=== PATIENT | male | born 1965 | race African-American/Black ===

== ENCOUNTER 2017-05-24 16:45 | Inpatient (IN) | payer OTHER ==
[2017-05-24 19:53] VITALS: BMI 25.8
--- NOTE | 2017-05-24 21:43 | HP ---
CIWA Score - CIWA Score Nausea/Vomitin-Mild Nausea/No Vomiting Muscle Tremors: 4-Moderate,w/Arms Extend Anxiety: 4-Mod. Anxious/Guarded Agitation: 4-Moderately Restless Paroxysmal Sweats: 1-Minimal Palms Moist Orientation: 1-Uncertain about Date Tacttile Disturbances: 0-None Auditory Disturbances: 0-None Visual Disturbances: 0-None Headache: 0-None Present CIWA-Ar Total Score: 15 Admission ROS BHS - HPI Chief Complaint: WITHDRAWAL SX Allergies/Adverse Reactions: Allergies Allergy/AdvReac Type Severity Reaction Status Date / Time No Known Allergies Allergy Verified 03/02/13 23:09 History of Present Illness: 52 YEARS OLD MALE WITH LONG HISTORY OF ALCOHOL NICOTINE DEPENDENCE HAS HIV HYPERLIPIDEMIA AND BIPOLAR II IS ADMITTED TO DETOX Exam Limitations: No Limitations - Ebola screening Have you traveled outside of the country in the last 21 days: No Have you had contact with anyone from an Ebola affected area: No Have you been sick,other than usual withdrawal symptoms: No Do you have a fever: No - Review of Systems Constitutional: Loss of Appetite, Changes in sleep, Unintentional Wgt. Loss, Unexplained wgt Loss EENT: reports: No Symptoms Reported Respiratory: reports: No Symptoms reported Cardiac: reports: No Symptoms Reported GI: reports: Nausea, Poor Appetite, Poor Fluid Intake, Abdominal cramping : reports: No Symptoms Reported Musculoskeletal: reports: No Symptoms Reported Integumentary: reports: No Symptoms Reported Neuro: reports: Tremors Endocrine: reports: No Symptoms Reported Hematology: reports: No Symptoms Reported Psychiatric: reports: Judgement Intact, Anxious, Depressed Other Systems: Reviewed and Negative Patient History - Patient Medical History Hx Anemia: No Hx Asthma: No Hx Chronic Obstructive Pulmonary Disease (COPD): No Hx Cancer: No Hx Cardiac Disorders: No Hx Congestive Heart Failure: No Hx Hypertension: No Hx Hypercholesterolemia: Yes Hx Pacemaker: No HX Cerebrovascular Accident: No Hx Seizures: No Hx Dementia: No Hx Diabetes: No Hx Gastrointestinal Disorders: No Hx Liver Disease: Yes (Hep b or c) Hx Genitourinary Disorders: No Hx Sexually Transmitted Disorders: No Hx Renal Disease (ESRD): No Hx Thyroid Disease: No Hx Human Immunodeficiency Virus (HIV): Yes (2006) Hx Hepatitis C: No Hx Depression: Yes (AND ANXIETY) Hx Suicide Attempt: No Hx Bipolar Disorder: No Hx Schizophrenia: No - Patient Surgical History Past Surgical History: Yes Hx Neurologic Surgery: No Hx Cataract Extraction: No Hx Cardiac Surgery: No Hx Lung Surgery: No Hx Breast Surgery: No Hx Breast Biopsy: No Hx Abdominal Surgery: No Hx Appendectomy: No Hx Cholecystectomy: No Hx Genitourinary Surgery: No Hx Orthopedic Surgery: Yes (rt index finger amputates while cutting meat) Other Surgical History: Inguinal hernia repair, ~2000 Anesthesia Reaction: No - PPD History Previous Implant?: Yes Documented Results: Positive w/proof Implanted On Prior [facility] Admission?: No PPD to be Administered?: No - Smoking Cessation Smoking history: Current every day smoker Have you smoked in the past 12 months: Yes Aproximately how many cigarettes per day: 20 Cigars Per Day: 0 Hx Chewing Tobacco Use: No Initiated information on smoking cessation: Yes 'Breaking Loose' booklet given: 05/24/17 - Substance & Tx. History Hx Alcohol Use: Yes Hx Substance Use: Yes Substance Use Type: Alcohol, Cocaine Hx Substance Use Treatment: Yes (2012) - Substances Abused Alcohol Route: Oral Frequency: Daily Amount used: 1/2 VOLKA+3 QUART BEER Age of first use: 12 Date of Last Use: 05/24/17 Family Disease History - Family Disease History Family Disease History: Diabetes: Mother (d. breast cancer, age 78), Heart Disease: Father (colon cancer - dx 2004, approx age 72; alive age 83), Mother, CA: Father, Mother, Other: Sister (sister- lupus) Admission Physical Exam BHS - Vital Signs Vital Signs: Vital Signs - 24 hr 05/24/17 19:51 Temperature 98.5 F Pulse Rate 120 H Respiratory 18 Rate Blood Pressure 113/78 - Physical General Appearance: Yes: Appropriately Dressed, Mild Distress, Thin, Tremorous, Irritable, Sweating, Anxious HEENTM: Yes: Hearing grossly Normal, Normal ENT Inspection, Normocephalic, Normal Voice Respiratory: Yes: Chest Non-Tender, Lungs Clear, Normal Breath Sounds, No Respiratory Distress, No Accessory Muscle Use Neck: Yes: Supple, Trachea in good position Breast: Yes: Breasts Symetrical Cardiology: Yes: Regular Rhythm, S1, S2, Tachycardia Abdominal: Yes: Non Tender, Soft, Increased Bowel Sounds Genitourinary: Yes: Within Normal Limits Back: Yes: Normal Inspection Musculoskeletal: Yes: full range of Motion, Gait Steady Extremities: Yes: Normal Inspection, Normal Range of Motion, Non-Tender, Tremors Neurological: Yes: Alert, Motor Strength 5/5, Normal Response, Depressed Affect Integumentary: Yes: Warm Lymphatic: Yes: Within Normal Limits - Diagnostic (1) H/O syphilis Current Visit: Yes Status: Resolved Comment: h/o treatment at [facility] - received documentation from Rebecca Esquivel, [facility] - bicillin 2.4 million units administered 1) 12/24/14, 2) 12/31, 3) 01/28/2015; pt reports he was treated another time at a clinic in [place]; declines re-treatment at this time and will notify when was treated previously discussed importance of ensuring complete syphilis treatment, risks a/w syphilis (2) Tobacco dependence Current Visit: Yes Status: Acute (3) Alcohol dependence with uncomplicated withdrawal Current Visit: Yes Status: Acute (4) Weight loss Current Visit: Yes Status: Acute (5) Bipolar II disorder Current Visit: Yes Status: Suspected Cleared for Admission BHS - Detox or Rehab S Level of Care: Medically Managed Detox Regimen/Protocol: Librium S Breath Alcohol Content Breath Alcohol Content: 0 Urine Drug Screen - Results Drug Screen Negative: No Urine Drug Screen Results: FELICITAS-Cocaine
[2017-05-24] MEDS ORDERED: P-EPHED 60MG/TRIPROLIDI 2.5MG TABLET PO PRN (21:52)
[2017-05-24] MEDS ORDERED: hydrOXYzine PAMOATE 50 MG CAPSULE (FP) PO PRN (21:52)
[2017-05-24] MEDS ORDERED: LOPERAMIDE HCL 2 MG CAPSULE PO PRN (21:52)
[2017-05-24] MEDS ORDERED: diphenhydrAMINE HCL 50 MG CAPSULE PO PRN (21:52)
[2017-05-24] MEDS ORDERED: NICOTINE POLACRILEX 4 MG GUM BUC PRN (21:52)
[2017-05-24] MEDS ORDERED: ACETAMINOPHEN 325 MG TABLET (FP) PO PRN (21:52)
[2017-05-24] MEDS ORDERED: MAGNESIUM CITRATE 300 ML BOTTLE PO PRN (21:52)
[2017-05-24] MEDS ORDERED: MENTHOL/PHENOL 1 EACH UD MM PRN (21:52)
[2017-05-24] MEDS ORDERED: MAGNESIUM HYDROX 2400MG/30ML ORAL SUSPENSION 30 ML CUP PO PRN (21:52)
[2017-05-24] MEDS ORDERED: IBUPROFEN 400 MG TABLET (FP) PO PRN (21:52)
[2017-05-24] MEDS ORDERED: MAG HYDROX/AL HYDROX/SIMETH 30 ML UNIT-DOSE CUP PO PRN (21:52)
[2017-05-24] MEDS ORDERED: guaiFENesin/D-METHORPHAN HB 10 ML UNIT-DOSE CUPS PO PRN (21:52)
[2017-05-24] MEDS ORDERED: chlordiazePOXIDE HCL 25 MG CAPSULE PO PRN (21:52)
[2017-05-24] MEDS: chlordiazePOXIDE HCL 25 MG CAPSULE PO SCH (23:59)
[2017-05-25] MEDS: THIAMINE HCL 100 MG TABLET (FP) PO SCH ×2 (00:01→22:38)
[2017-05-25] MEDS: MINERAL OIL/PETROLAT/WATER TOPICAL CREAM 113 GM JAR TP SCH ×2 (00:14→23:31)
[2017-05-25 01:35] LABS: URINE APPEARANCE SLCLOUDY; URINE BILIRUBIN NEGATIVE (NEGATIVE); URINE BLOOD NEGATIVE (NEGATIVE); URINE GLUCOSE (UA) NEGATIVE (NEGATIVE); URINE KETONE NEGATIVE (NEGATIVE); URINE LEUK ESTERASE NEGATIVE (NEGATIVE); URINE NITRITE NEGATIVE (NEGATIVE); URINE PROTEIN NEGATIVE (NEGATIVE); URINE UROBILINOGEN 4.0 E.U/dl mg/dL (0.2-1.0)
[2017-05-25 01:36] LABS: URINE COLOR YELLOW
[2017-05-25] MEDS: chlordiazePOXIDE HCL 25 MG CAPSULE PO SCH ×4 (07:00→22:38)
--- NOTE | 2017-05-25 08:35 | CONSULT ---
[facility] Psychiatric Consult - Data Date of interview: 05/25/17 Admission source: [facility] Identifying data: This is 52 years old male with psychiatric hospitalization history intoxicated with: Alcohol, Cocaine and Nicotine Substance Abuse History: - Smoking Cessation. Smoking history: Current every day smoker. Have you smoked in the past 12 months: Yes. Aproximately how many cigarettes per day: 20. Cigars Per Day: 0. Hx Chewing Tobacco Use: No. Initiated information on smoking cessation: Yes. 'Breaking Loose' booklet given : 05/24/17. - Substance & Tx. History. Hx Alcohol Use: Yes. Hx Substance Use : Yes. Substance Use Type: Alcohol, Cocaine. Hx Substance Use Treatment: Yes ( 2012). - Substances Abused. Alcohol. Route: Oral. Frequency: Daily. Amount used: 1/2 VOLKA+3 QUART BEER. Age of first use: 12. Date of Last Use: 05/24/17 Medical History: Weight loss history, Head Lipoma history, Aids, hiv, hEPb+, HTN Psychiatric History: Patient reports history of Bipolr II Disroder, reports unclear psychiatric admission on about 10 years ago, reports no medications taking prior to admission Physical/Sexual Abuse/Trauma History: Denies Additional Comment: Observation. Detox Unit Care Protocol Mental Status Exam - Mental Status Exam Alert and Oriented to: Person Cognitive Function: Fair Patient Appearance: Unkempt Mood: Sad Affect: Flat Patient Behavior: Sedated Speech Pattern: Delayed Voice Loudness: Mildly Soft/Quiet Thought Process: Circumstantial Thought Disorder: Being Controlled Hallucinations: Denies Suicidal Ideation: Denies Homicidal Ideation: Denies Insight/Judgement: Fair Sleep: Difficulty falling asleep Appetite: Weight loss Muscle strength/Tone: Normal Gait/Station: Normal Additional Comments: Observation. Detox Unit Care Protocol Psychiatric Findings - Problem List ([place] 1, 2,3) (1) Alcohol dependence with uncomplicated withdrawal Current Visit: Yes Status: Acute (2) Tobacco dependence Current Visit: Yes Status: Acute (3) Bipolar II disorder Current Visit: Yes Status: Suspected (4) H/O bipolar disorder Current Visit: No Status: Acute Comment: off meds x 3 mo; denies suicidal plan or intent, refer to psychiatrist for eval (5) H/O cocaine abuse Current Visit: No Status: Acute (6) Drug-induced mood disorder Current Visit: Yes Status: Suspected - Initial Treatment Plan Initial Treatment Plan: Observation. Detox Unit Care Protocol
[2017-05-25 09:49] LABS: MCH 30.7 pg (25.7-33.7); MCHC 33.7 g/dl (32.0-35.9); MEAN CELL VOLUME 91.1 fl (80-96); MEAN PLT VOLUME 7.9 fl (7.5-11.1); PLATELET COUNT 199 K/MM3 (134-434); RDW 13.9 % (11.9-15.9); WHITE BLOOD COUNT 5.6 K/mm3 (4.0-10.0)
[2017-05-25 10:14] LABS: ALBUMIN 3.2 g/dl (3.4-5.0); ALK PHOS 104 U/L (45-117); ANION GAP 3 (8-16); BILIRUBIN,TOTAL 0.3 mg/dL (0.2-1.0); CALCIUM 8.6 mg/dL (8.5-10.1); CO2 32 mmol/L (21-32); CREATININE 0.9 mg/dL (0.7-1.3); GLUCOSE,RANDOM 100 mg/dL (74-106); SGOT/AST 28 U/L (15-37); SGPT/ALT 42 U/L (12-78)
--- NOTE | 2017-05-25 10:47 | PN ---
S CIWA - CIWA Score Nausea/Vomitin-No Nausea/No Vomiting Muscle Tremors: 4-Moderate,w/Arms Extend Anxiety: 3 Agitation: 4-Moderately Restless Paroxysmal Sweats: 3 Orientation: 0-Oriented Tacttile Disturbances: 0-None Auditory Disturbances: 0-None Visual Disturbances: 0-None Headache: 0-None Present CIWA-Ar Total Score: 14 BHS Progress Note (SOAP) Subjective: irritable agitation anxiety sweats shakes interrupted sleep Objective: 05/25/17 10:41 Vital Signs Temperature 97.9 F 05/25/17 10:01 Pulse Rate 80 05/25/17 10:01 Respiratory Rate 18 05/25/17 10:01 Blood Pressure 104/55 05/25/17 10:01 O2 Sat by Pulse Oximetry (%) Laboratory Tests 05/24/17 05/25/17 05/25/17 23:56 07:50 07:50 WBC 5.6 RBC 4.46 Hgb 13.7 Hct 40.6 MCV 91.1 MCH 30.7 MCHC 33.7 RDW 13.9 Plt Count 199 MPV 7.9 Sodium 139 Potassium 3.6 Chloride 104 Carbon Dioxide 32 Anion Gap 3 L BUN 12 Creatinine 0.9 Creat Clearance w eGFR > 60 Random Glucose 100 D Calcium 8.6 Total Bilirubin 0.3 D AST 28 D ALT 42 Alkaline Phosphatase 104 D Total Protein 7.0 Albumin 3.2 L Urine Color Yellow Urine Appearance Slcloudy Urine pH 5.0 D Ur Specific [place] 1.025 Urine Protein Negative Urine Glucose (UA) Negative Urine Ketones Negative Urine Blood Negative Urine Nitrite Negative Urine Bilirubin Negative Urine Urobilinogen 4.0 e.u/dl awake/alert lying in bed no acute distress Assessment: 05/25/17 10:47 withdrawal sx Plan: continue detox increase fluids
[2017-05-25] MEDS: NICOTINE 21 MG/24 HOURS TOPICAL PATCH TD SCH (11:34)
[2017-05-25] MEDS: PRENATAL VITAMINS W/ FOLIC ACID TABLET (FP) PO SCH (11:34)
--- NOTE | 2017-05-25 13:25 | EKG ---
Test Reason : Blood Pressure : / mmHG Vent. Rate : 085 BPM Atrial Rate : 085 BPM P-R Int : 166 ms QRS Dur : 096 ms QT Int : 372 ms P-R-T Axes : 055 081 062 degrees QTc Int : 442 ms POOR DATA QUALITY, INTERPRETATION MAY BE ADVERSELY AFFECTED NORMAL SINUS RHYTHM ANTERIOR INFARCT (CITED ON OR BEFORE 22-FEB-2017) ABNORMAL ECG WHEN COMPARED WITH ECG OF 22-FEB-2017 14:16, NO SIGNIFICANT CHANGE WAS FOUND Confirmed by VERÓNICA VEGA MD ([id number]) on 05/25/2017 1:25:04 PM Referred By: Natalio Young Confirmed By:VERÓNICA VEGA MD
[2017-05-25] MEDS: [UNRECOGNIZED DRUG - OTHER] PO SCH ×2 (22:38→22:57)
[2017-05-26] MEDS: chlordiazePOXIDE HCL 25 MG CAPSULE PO SCH ×3 (07:24→17:25)
[2017-05-26] MEDS: PRENATAL VITAMINS W/ FOLIC ACID TABLET (FP) PO SCH (10:13)
[2017-05-26] MEDS: NICOTINE 21 MG/24 HOURS TOPICAL PATCH TD SCH (10:15)
--- NOTE | 2017-05-26 10:45 | PN ---
[facility] CIWA - CIWA Score Nausea/Vomitin-No Nausea/No Vomiting Muscle Tremors: 3 Anxiety: 3 Agitation: 3 Paroxysmal Sweats: 3 Orientation: 0-Oriented Tacttile Disturbances: 0-None Auditory Disturbances: 0-None Visual Disturbances: 0-None Headache: 0-None Present CIWA-Ar Total Score: 12 S Progress Note (SOAP) Subjective: irritable agitation interrupted sleep body aches Objective: 05/26/17 10:49 Vital Signs Temperature 97.5 F L 05/26/17 09:38 Pulse Rate 113 H 05/26/17 09:38 Respiratory Rate 18 05/26/17 09:38 Blood Pressure 128/72 05/26/17 09:38 O2 Sat by Pulse Oximetry (%) Laboratory Tests 05/24/17 05/25/17 05/25/17 23:56 07:50 07:50 WBC 5.6 RBC 4.46 Hgb 13.7 Hct 40.6 MCV 91.1 MCH 30.7 MCHC 33.7 RDW 13.9 Plt Count 199 MPV 7.9 Sodium 139 Potassium 3.6 Chloride 104 Carbon Dioxide 32 Anion Gap 3 L BUN 12 Creatinine 0.9 Creat Clearance w eGFR > 60 Random Glucose 100 D Calcium 8.6 Total Bilirubin 0.3 D AST 28 D ALT 42 Alkaline Phosphatase 104 D Total Protein 7.0 Albumin 3.2 L Urine Color Yellow Urine Appearance Slcloudy Urine pH 5.0 D Ur Specific [place] 1.025 Urine Protein Negative Urine Glucose (UA) Negative Urine Ketones Negative Urine Blood Negative Urine Nitrite Negative Urine Bilirubin Negative Urine Urobilinogen 4.0 e.u/dl RPR Titer T.pallidum Ab (MHA) 05/25/17 07:50 WBC RBC Hgb Hct MCV MCH MCHC RDW Plt Count MPV Sodium Potassium Chloride Carbon Dioxide Anion Gap BUN Creatinine Creat Clearance w eGFR Random Glucose Calcium Total Bilirubin AST ALT Alkaline Phosphatase Total Protein Albumin Urine Color Urine Appearance Urine pH Ur Specific [place] Urine Protein Urine Glucose (UA) Urine Ketones Urine Blood Urine Nitrite Urine Bilirubin Urine Urobilinogen RPR Titer Reactive 1:4 H T.pallidum Ab (MHA) Previously reactive pt states he received tx for syphillis in the past and is aware of 1:4 titer result. AAOx3 lying in bed no acute distress Assessment: 05/26/17 10:50 mild withdrawal sx Plan: continue detox increase fluids
[2017-05-26 17:24] VITALS: BP 116/63; PULSE 64; TEMP 98.4
--- NOTE | 2017-05-26 18:16 | DS ---
[facility] Detox Discharge Summary Admission Date: 05/24/17 Discharge Date: 05/26/17 - History Present History: Alcohol Dependence, Cocaine Dependence Additional Comments: PATIENT HAS PERSONAL ISSUE TO ATTEND TO AND DOES NOT WISH TO STAY TO COMPLETE DETOX REGIMEN. PATIENT ADVISED TO GO IMMEDIATELY TO NEAREST ER SHOULD ANY INTOLERABLE DETOX SYMPTOMS DEVELOP AT ANY TIME. PATIENT LEFT DETOX UNIT IN STABLE MEDICAL CONDITION. Pertinent Past History: Hypercholesterolemia, HIV, History of Syphilis, Bipolar disorder, Depression / anxiety. - Physical Exam Results Vital Signs: Vital Signs Temperature 98.4 F 05/26/17 17:23 Pulse Rate 64 05/26/17 17:23 Respiratory Rate 18 05/26/17 17:23 Blood Pressure 116/63 05/26/17 17:23 O2 Sat by Pulse Oximetry (%) Pertinent Admission Physical Exam Findings: WITJHDRAWAL SYMPTOMS. Laboratory Tests 05/24/17 05/25/17 05/25/17 23:56 07:50 07:50 WBC 5.6 RBC 4.46 Hgb 13.7 Hct 40.6 MCV 91.1 MCH 30.7 MCHC 33.7 RDW 13.9 Plt Count 199 MPV 7.9 Sodium 139 Potassium 3.6 Chloride 104 Carbon Dioxide 32 Anion Gap 3 L BUN 12 Creatinine 0.9 Creat Clearance w eGFR > 60 Random Glucose 100 D Calcium 8.6 Total Bilirubin 0.3 D AST 28 D ALT 42 Alkaline Phosphatase 104 D Total Protein 7.0 Albumin 3.2 L Urine Color Yellow Urine Appearance Slcloudy Urine pH 5.0 D Ur Specific [place] 1.025 Urine Protein Negative Urine Glucose (UA) Negative Urine Ketones Negative Urine Blood Negative Urine Nitrite Negative Urine Bilirubin Negative Urine Urobilinogen 4.0 e.u/dl RPR Titer T.pallidum Ab (MHA) 05/25/17 07:50 WBC RBC Hgb Hct MCV MCH MCHC RDW Plt Count MPV Sodium Potassium Chloride Carbon Dioxide Anion Gap BUN Creatinine Creat Clearance w eGFR Random Glucose Calcium Total Bilirubin AST ALT Alkaline Phosphatase Total Protein Albumin Urine Color Urine Appearance Urine pH Ur Specific [place] Urine Protein Urine Glucose (UA) Urine Ketones Urine Blood Urine Nitrite Urine Bilirubin Urine Urobilinogen RPR Titer Reactive 1:4 H T.pallidum Ab (MHA) Previously reactive LABS NOTED. - Treatment Hospital Course: Detoxed Safely - Medication Discharge Medications: Ambulatory Orders NK [No Known Home Medication] 05/24/17 - Diagnosis (1) Tobacco dependence Current Visit: Yes Status: Chronic (2) Alcohol dependence with uncomplicated withdrawal Current Visit: Yes Status: Acute (3) Bipolar II disorder Current Visit: Yes Status: Suspected (4) Drug-induced mood disorder Current Visit: Yes Status: Suspected (5) H/O syphilis Current Visit: Yes Status: Resolved (6) H/O bipolar disorder Current Visit: No Status: Acute (7) Weight loss Current Visit: Yes Status: Acute - AMA Did Patient Leave Against Medical Advice: Yes (PATIENT DID NOT WISH TO STAY TO COMPLETE DETOX REGIMEN.)
[2017-05-26] MEDS ORDERED: chlordiazePOXIDE 5 MG CAPSULE PO SCH (23:00)
[2017-05-27] MEDS ORDERED: chlordiazePOXIDE HCL 10 MG CAPSULE PO SCH (23:00)
== END 2017-05-26 17:23 | disposition left against medical advice (07) | DRG 770 ==
LOC: YASAS 16:45 → Y6N 21:33
PROVIDERS: ADMIT Internal Medicine Addiction Medicine; ATTEND Internal Medicine Addiction Medicine
PROC: HZ2ZZZZ Detoxification Services for Substance Abuse Treatment (ICD-10-PCS; principal; 2017-05-24)
DX: F10.230 Alcohol dependence with withdrawal, uncomplicated (principal); F17.210 Nicotine dependence, cigarettes, uncomplicated; F14.10 Cocaine abuse, uncomplicated; F31.81 Bipolar II disorder; F19.24 Other psychoactive substance dependence with psychoactive substance-induced mood disorder; Z21 Asymptomatic human immunodeficiency virus [HIV] infection status; Z87.438 Personal history of other diseases of male genital organs; Z89.021 Acquired absence of right finger(s)
CPT/HCPCS: 36415; 71020-TC; 80053; 81003; 85027; 86593; 86780; 93005; 93010

== ENCOUNTER 2017-07-04 02:38 | Inpatient (IN) | payer OTHER ==
--- NOTE | 2017-07-04 03:10 | HP ---
CIWA Score - CIWA Score Nausea/Vomitin Muscle Tremors: 3 Anxiety: 3 Agitation: 3 Paroxysmal Sweats: 2 Orientation: 0-Oriented Tacttile Disturbances: 2-Mild Itch/Numbness/Burn Auditory Disturbances: 2-Mild Harshness/Frighten Visual Disturbances: 2-Mild Sensitivity Headache: 2-Mild CIWA-Ar Total Score: 22 Admission ROS BHS - HPI Chief Complaint: i need help to stop drinking alcohol and using cocaine Allergies/Adverse Reactions: Allergies Allergy/AdvReac Type Severity Reaction Status Date / Time No Known Allergies Allergy Verified 07/04/17 03:49 History of Present Illness: this 52 years old male with alcohol and cocaine dependence,seeking detox,last treatment [facility] 05/24/17 to 05/26/17 hypercholesterolemia weight loss longest period sobriety 9 years Exam Limitations: No Limitations - Ebola screening Have you traveled outside of the country in the last 21 days: No - Review of Systems Constitutional: Loss of Appetite, Malaise, Night Sweats, Changes in sleep, Weakness, Unintentional Wgt. Loss EENT: reports: Nose Congestion Respiratory: reports: No Symptoms reported Cardiac: reports: No Symptoms Reported GI: reports: Diarrhea, Nausea, Vomiting, Abdominal cramping : reports: No Symptoms Reported Musculoskeletal: reports: Back Pain, Muscle Pain Integumentary: reports: Dryness Neuro: reports: Headache, Tremors Endocrine: reports: No Symptoms Reported Hematology: reports: No Symptoms Reported, Other (hiv) Patient History - Patient Medical History Hx Anemia: No Hx Asthma: No Hx Chronic Obstructive Pulmonary Disease (COPD): No Hx Cancer: No Hx Cardiac Disorders: No Hx Congestive Heart Failure: No Hx Hypertension: No Hx Hypercholesterolemia: Yes (on med) Hx Pacemaker: No HX Cerebrovascular Accident: No Hx Seizures: No Hx Dementia: No Hx Diabetes: No Hx Gastrointestinal Disorders: No Hx Liver Disease: Yes (hep b) Hx Genitourinary Disorders: No Hx Sexually Transmitted Disorders: No Hx Renal Disease (ESRD): No Hx Thyroid Disease: No Hx Human Immunodeficiency Virus (HIV): Yes (1997) Hx Hepatitis C: No Hx Depression: Yes (insomnia) Hx Suicide Attempt: No Hx Bipolar Disorder: No Hx Schizophrenia: No Other Medical History: no suicidal,no homicidal - Patient Surgical History Past Surgical History: Yes Hx Neurologic Surgery: No Hx Cataract Extraction: No Hx Cardiac Surgery: No Hx Lung Surgery: No Hx Breast Surgery: No Hx Breast Biopsy: No Hx Abdominal Surgery: No Hx Appendectomy: No Hx Cholecystectomy: No Hx Genitourinary Surgery: No Hx Orthopedic Surgery: Yes (rt index finger amputates while cutting meat) Other Surgical History: Inguinal hernia repair, ~2000 right Anesthesia Reaction: No - PPD History Previous Implant?: Yes Documented Results: Positive w/proof - Smoking Cessation Smoking history: Former smoker (recently quit smoking) Have you smoked in the past 12 months: Yes Aproximately how many cigarettes per day: 20 If you are a former smoker, when did you quit?: 05/21/17 Cigars Per Day: 0 Hx Chewing Tobacco Use: No Initiated information on smoking cessation: Yes 'Breaking Loose' booklet given: 07/04/17 - Substance & Tx. History Hx Alcohol Use: Yes Hx Substance Use: Yes Substance Use Type: Alcohol, Cocaine Hx Substance Use Treatment: Yes ([facility] 05/24/17 to 05/26/17) - Substances Abused Alcohol Route: Oral Frequency: Daily Amount used: 1pint of vodka/2 of 6 packs of 12 ozs Age of first use: 16 Date of Last Use: 07/03/17 Cocaine Route: Smoking Frequency: Daily Amount used: 400$ Age of first use: 15 Date of Last Use: 07/04/17 Family Disease History - Family Disease History Family Disease History: Diabetes: Mother (d. breast cancer, age 78), Heart Disease: Father (colon cancer - dx 2004, approx age 72; alive age 83), Mother, [place]: Father, Mother, Other: Sister (sister- lupus) Admission Physical Exam S - Vital Signs Vital Signs: Vital Signs Temperature 97.9 F 07/04/17 03:32 Pulse Rate 90 07/04/17 03:32 Respiratory Rate 20 07/04/17 03:32 Blood Pressure 106/67 07/04/17 03:32 O2 Sat by Pulse Oximetry (%) - Physical General Appearance: Yes: Moderate Distress, Tremorous, Irritable, Sweating, Anxious HEENTM: Yes: Normal ENT Inspection, MYLENE, Pharynx Normal Respiratory: Yes: Lungs Clear, Normal Breath Sounds, No Respiratory Distress Neck: Yes: Within Normal Limits, Supple, Trachea in good position Breast: Yes: Within Normal Limits Cardiology: Yes: Within Normal Limits, Regular Rhythm, Regular Rate, S1, S2 Abdominal: Yes: Normal Bowel Sounds, Non Tender, Flat, Soft Genitourinary: Yes: Within Normal Limits Back: Yes: Muscle Spasm Musculoskeletal: Yes: full range of Motion, Back pain, Muscle Pain Extremities: Yes: Normal Range of Motion, Tremors, Other (s/p amputation tip of right index) 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 intact, Fully Oriented, Alert, Motor Strength 5/5 Integumentary: Yes: Dry Lymphatic: Yes: Within Normal Limits - Diagnostic (1) Alcohol dependence with uncomplicated withdrawal Current Visit: Yes Status: Acute (2) Cocaine dependence Current Visit: Yes Status: Acute (3) HIV (human immunodeficiency virus infection) Current Visit: Yes Status: Chronic (4) Hypercholesterolemia Current Visit: Yes Status: Chronic (5) Weight loss Current Visit: No Status: Acute (6) Depression Current Visit: Yes Status: Acute (7) Insomnia Current Visit: Yes Status: Acute Cleared for Admission BHS - Detox or Rehab S Level of Care: Medically Managed Detox Regimen/Protocol: Librium BHS Breath Alcohol Content Breath Alcohol Content: 0 Vital Signs - Vital Signs Vital Signs Refused: No Temperature: 97.9 F Temperature Source: Oral Pulse Rate: 90 Respiratory Rate: 20 Blood Pressure: 106/67 BP Location: Left Arm - Height Height: 5 ft 8 in - Weight Weight: 172 lb Body Mass Index (BMI): 26.1 Urine Drug Screen - Test Device Lot Number: [id number] Expiration Date: 03/10/19 - Control Is Test Valid: Yes - Results Drug Screen Negative: No Urine Drug Screen Results: FELICITAS-Cocaine
[2017-07-04 03:32] VITALS: BMI 26.1
[2017-07-04] MEDS ORDERED: IBUPROFEN 400 MG TABLET (FP) PO PRN (03:42)
[2017-07-04] MEDS ORDERED: diphenhydrAMINE HCL 50 MG CAPSULE PO PRN (03:42)
[2017-07-04] MEDS ORDERED: LOPERAMIDE HCL 2 MG CAPSULE PO PRN (03:42)
[2017-07-04] MEDS ORDERED: MAGNESIUM CITRATE 300 ML BOTTLE PO PRN (03:42)
[2017-07-04] MEDS ORDERED: chlordiazePOXIDE HCL 25 MG CAPSULE PO ONE (03:42)
[2017-07-04] MEDS ORDERED: ACETAMINOPHEN 325 MG TABLET (FP) PO PRN (03:42)
[2017-07-04] MEDS ORDERED: P-EPHED 60MG/TRIPROLIDI 2.5MG TABLET PO PRN (03:42)
[2017-07-04] MEDS ORDERED: MAG HYDROX/AL HYDROX/SIMETH 30 ML UNIT-DOSE CUP PO PRN (03:42)
[2017-07-04] MEDS ORDERED: guaiFENesin/D-METHORPHAN HB 10 ML UNIT-DOSE CUPS PO PRN (03:42)
[2017-07-04] MEDS ORDERED: MENTHOL/PHENOL 1 EACH UD MM PRN (03:42)
[2017-07-04] MEDS ORDERED: hydrOXYzine PAMOATE 25 MG CAPSULE (FP) PO PRN (03:42)
[2017-07-04] MEDS ORDERED: chlordiazePOXIDE HCL 25 MG CAPSULE PO PRN (03:42)
[2017-07-04] MEDS ORDERED: MAGNESIUM HYDROX 2400MG/30ML ORAL SUSPENSION 30 ML CUP PO PRN (03:42)
[2017-07-04] MEDS: chlordiazePOXIDE HCL 25 MG CAPSULE PO SCH ×4 (04:17→22:33)
[2017-07-04] MEDS: PRENATAL VITAMINS W/ FOLIC ACID TABLET (FP) PO SCH (10:28)
--- NOTE | 2017-07-04 10:55 | PN ---
BHS Progress Note Note: PT ADMITTED EARLIER TODAY. SWEATS,FATIGUE. RECIEVED PT SLEEPING IN BED. CONTINUE DETOX
--- NOTE | 2017-07-04 16:57 | CONSULT ---
[facility] Psychiatric Consult - Data Date of interview: 07/04/17 Admission source: [facility] Identifying data: Third admission to [facility] for this 52 y/o AA male seeking detox treatment on for alcohol and cocaine dependence.Patient is ,a father ot three,homeless ([facility]) and currently employed. Substance Abuse History: Discusssed in this session.Addictions confirmed.Smoking history: Former smoker (recently quit smoking). Have you smoked in the past 12 months: Yes. Aproximately how many cigarettes per day: 20. If you are a former smoker, when did you quit?: 05/21/17. Cigars Per Day: 0. Hx Chewing Tobacco Use: No. Initiated information on smoking cessation: Yes. 'Breaking Loose' booklet given: 07/04/17. - Substance & Tx. History. Hx Alcohol Use: Yes. Hx Substance Use: Yes. Substance Use Type: Alcohol, Cocaine. Hx Substance Use Treatment: Yes ([facility] 05/24/17 to 05/26/17). - Substances Abused. Alcohol. Route: Oral. Frequency: Daily. Amount used: 1pint of vodka/2 of 6 packs of 12 ozs. Age of first use: 16. Date of Last Use : 07/03/17. Cocaine. Route: Smoking. Frequency: Daily. Amount used: 400$ . Age of first use: 15. Date of Last Use: 07/04/17 Medical History: Remarkable for HIV infection since 1996,hepatitis B, hypercholesterolemia and a history of inguinal herniorraphy (2000).Accidental amputation of right index (while cutting meat). Psychiatric History: No reported history of psychatric hospitalizations.Patient gets his OPD services at the [facility],under the care of Dr Brito.Diagnosed with Bipolar Disorder.Prescribed seroquel 50 mg/hs + sertraline 100 mg/day (verified).Mr Wynn denies history of suicide attempts. Physical/Sexual Abuse/Trauma History: Patient denies history of abuse. Additional Comment: Urine Drug Screen Results: FELICITAS-Cocaine.Noted. Mental Status Exam - Mental Status Exam Alert and Oriented to: Time, Place, Person Cognitive Function: Good Patient Appearance: Well Groomed Mood: Hopeful, Euthymic Affect: Appropriate, Normal Range Patient Behavior: Fatigued, Cooperative Speech Pattern: Clear, Appropriate Voice Loudness: Normal Thought Process: Intact, Goal Oriented Thought Disorder: Not Present Hallucinations: Denies Suicidal Ideation: Denies Homicidal Ideation: Denies Insight/Judgement: Poor Sleep: Well (on seroquel as per self-report) Appetite: Good (observed eating diner) Muscle strength/Tone: Normal Gait/Station: Normal Psychiatric Findings - Problem List ([place] 1, 2,3) (1) Alcohol dependence with uncomplicated withdrawal Current Visit: Yes Status: Acute (2) Cocaine dependence Current Visit: Yes Status: Acute (3) Drug-induced mood disorder Current Visit: Yes Status: Suspected (4) Bipolar disorder Current Visit: Yes Status: Chronic Comment: Self-report.OPD care : current. (5) HIV (human immunodeficiency virus infection) Current Visit: Yes Status: Chronic (6) Hypercholesterolemia Current Visit: Yes Status: Chronic - Initial Treatment Plan Initial Treatment Plan: Psychoeducation.Detoxification in progress.Records revisited.Medications confirmed.Ordered : seroquel 50 mg po hs + zoloft 100 mg po daily.Side effects/benefits discussed with patient.Consent (verbal) is obtained for continuation of this plan of care.Observation.Scripts are NOT required at discharge (refills already available from Dr Steward).
--- NOTE | 2017-07-04 20:23 | EKG ---
Test Reason : Blood Pressure : / mmHG Vent. Rate : 076 BPM Atrial Rate : 076 BPM P-R Int : 170 ms QRS Dur : 098 ms QT Int : 388 ms P-R-T Axes : 057 083 060 degrees QTc Int : 436 ms NORMAL SINUS RHYTHM EARLY REPOLARIZATION WHEN COMPARED WITH ECG OF 24-MAY-2017 22:53, NO MAJOR CHANGE SEEN IN COMPARABLE LEADS Confirmed by DINORA RODRIGUEZ MD ([id number]) on 07/04/2017 8:23:09 PM Referred By: Confirmed By:DINORA RODRIGUEZ MD
[2017-07-04] MEDS: QUEtiapine FUMARATE 50 MG TABLET PO SCH (22:32)
[2017-07-04] MEDS: THIAMINE HCL 100 MG TABLET (FP) PO SCH (22:32)
[2017-07-05] MEDS: chlordiazePOXIDE HCL 25 MG CAPSULE PO SCH ×4 (06:24→22:29)
[2017-07-05 10:03] LABS: MCH 30.3 pg (25.7-33.7); MCHC 33.1 g/dl (32.0-35.9); MEAN CELL VOLUME 91.4 fl (80-96); MEAN PLT VOLUME 7.8 fl (7.5-11.1); PLATELET COUNT 224 K/MM3 (134-434); RDW 14.1 % (11.9-15.9); WHITE BLOOD COUNT 5.6 K/mm3 (4.0-10.0)
[2017-07-05] MEDS: PRENATAL VITAMINS W/ FOLIC ACID TABLET (FP) PO SCH (10:28)
[2017-07-05] MEDS: SERTRALINE HCL 50 MG TABLET (FP) PO SCH (10:29)
[2017-07-05 10:42] LABS: ALBUMIN 3.3 g/dl (3.4-5.0); ALK PHOS 104 U/L (45-117); ANION GAP 9 (8-16); BILIRUBIN,TOTAL 0.7 mg/dL (0.2-1.0); CALCIUM 8.7 mg/dL (8.5-10.1); CO2 28 mmol/L (21-32); GLUCOSE,RANDOM 121 mg/dL (74-106); SGOT/AST 24 U/L (15-37); SGPT/ALT 26 U/L (12-78); TOT PROT 7.7 g/dl (6.4-8.2)
--- NOTE | 2017-07-05 13:27 | PN ---
[facility] CIWA - CIWA Score Nausea/Vomitin-No Nausea/No Vomiting Muscle Tremors: 3 Anxiety: 3 Agitation: 2 Paroxysmal Sweats: 3 Orientation: 2-Disoriented Date<2 days Tacttile Disturbances: 1-Very Mild Itch/Numbness Auditory Disturbances: 2-Mild Harshness/Frighten Visual Disturbances: 0-None Headache: 0-None Present CIWA-Ar Total Score: 16 BHS Progress Note (SOAP) Subjective: Diarrhea, Stomach cramping, Sweating, Body aches. Objective: PT. A & O X 2 (DISORIENTED ABOUT DAY / DATE). NO ACUTE DISTRESS. 07/05/17 13:24 Vital Signs Temperature 97.2 F L 07/05/17 09:42 Pulse Rate 78 07/05/17 09:42 Respiratory Rate 18 07/05/17 09:42 Blood Pressure 102/69 07/05/17 09:42 O2 Sat by Pulse Oximetry (%) Laboratory Tests 07/05/17 07/05/17 07/05/17 07:00 07:00 07:00 WBC 5.6 RBC 4.81 Hgb 14.6 Hct 44.0 MCV 91.4 MCH 30.3 MCHC 33.1 RDW 14.1 Plt Count 224 MPV 7.8 Sodium 139 Potassium 3.6 Chloride 102 Carbon Dioxide 28 Anion Gap 9 BUN 9 Creatinine 1.0 Creat Clearance w eGFR > 60 Random Glucose 121 H D Calcium 8.7 Total Bilirubin 0.7 AST 24 ALT 26 D Alkaline Phosphatase 104 Total Protein 7.7 Albumin 3.3 L RPR Titer Reactive 1:8 H T.pallidum Ab (MHA) Previously reactive LABS NOTED. UA RESULTS PENDING. PATIENT REPORTS THAT HE COMPLETED FULL COURSE OF ANTIBIOTIC TREATMENT FOR SYPHILIS APPROX. 2 MONTHS AGO. 07/05/17 13:25 Assessment: 07/05/17 13:25 WITHDRAWAL SYMPTOMS. Plan: CONTINUE DETOX. INCREASE DAILY PO FLUID INTAKE.
[2017-07-05] MEDS: THIAMINE HCL 100 MG TABLET (FP) PO SCH (22:29)
[2017-07-05] MEDS: QUEtiapine FUMARATE 50 MG TABLET PO SCH (22:29)
[2017-07-06] MEDS: chlordiazePOXIDE 5 MG CAPSULE PO SCH ×4 (05:52→22:53)
[2017-07-06] MEDS: PRENATAL VITAMINS W/ FOLIC ACID TABLET (FP) PO SCH (10:22)
[2017-07-06] MEDS: SERTRALINE HCL 50 MG TABLET (FP) PO SCH (10:22)
[2017-07-06] MEDS: TOLNAFTATE 1% CREAM 15 GM TUBE TP SCH ×2 (11:54→22:49)
--- NOTE | 2017-07-06 13:10 | PN ---
S CIWA - CIWA Score Nausea/Vomitin-No Nausea/No Vomiting Muscle Tremors: 3 Anxiety: 4-Mod. Anxious/Guarded Agitation: 3 Paroxysmal Sweats: 3 Orientation: 0-Oriented Tacttile Disturbances: 3-Moderate Itch/Numb/Burn Auditory Disturbances: 0-None Visual Disturbances: 0-None Headache: 0-None Present CIWA-Ar Total Score: 16 BHS Progress Note (SOAP) Subjective: Sweating, Tremors, Stomach cramping. Objective: PT. A & O X 3, OBSERVED AMBULATING ON UNIT. NO ACUTE DISTRESS. 07/06/17 13:09 Vital Signs Temperature 97.8 F 07/06/17 09:11 Pulse Rate 91 H 07/06/17 09:11 Respiratory Rate 20 07/06/17 09:11 Blood Pressure 117/64 07/06/17 09:11 O2 Sat by Pulse Oximetry (%) Laboratory Tests 07/05/17 07/05/17 07/05/17 07:00 07:00 07:00 WBC 5.6 RBC 4.81 Hgb 14.6 Hct 44.0 MCV 91.4 MCH 30.3 MCHC 33.1 RDW 14.1 Plt Count 224 MPV 7.8 Sodium 139 Potassium 3.6 Chloride 102 Carbon Dioxide 28 Anion Gap 9 BUN 9 Creatinine 1.0 Creat Clearance w eGFR > 60 Random Glucose 121 H D Calcium 8.7 Total Bilirubin 0.7 AST 24 ALT 26 D Alkaline Phosphatase 104 Total Protein 7.7 Albumin 3.3 L RPR Titer Reactive 1:8 H T.pallidum Ab (MHA) Previously reactive LABS NOTED. UA RESULTS PENDING. 07/06/17 13:10 Assessment: 07/06/17 13:09 WITHDRAWAL SYMPTOMS. Plan: CONTINUE DETOX.
[2017-07-06 14:48] LABS: URINE APPEARANCE CLEAR; URINE BILIRUBIN NEGATIVE (NEGATIVE); URINE BLOOD NEGATIVE (NEGATIVE); URINE COLOR LT. YELLOW; URINE GLUCOSE (UA) NEGATIVE (NEGATIVE); URINE KETONE NEGATIVE (NEGATIVE); URINE NITRITE NEGATIVE (NEGATIVE); URINE PROTEIN NEGATIVE (NEGATIVE); URINE UROBILINOGEN 0.2 mg/dL (0.2-1.0)
[2017-07-06 18:43] LABS: URINE LEUK ESTERASE 1+ (NEGATIVE)
[2017-07-06 20:22] LABS: URINE BACTERIA FEW /hpf (NEGATIVE); URINE WBC MANY (3-5)
[2017-07-06] MEDS: THIAMINE HCL 100 MG TABLET (FP) PO SCH (22:50)
[2017-07-06] MEDS: QUEtiapine FUMARATE 50 MG TABLET PO SCH (22:52)
[2017-07-07] MEDS: chlordiazePOXIDE HCL 10 MG CAPSULE PO SCH ×2 (06:35→10:50)
[2017-07-07 10:16] VITALS: BP 119/80; PULSE 103; TEMP 98.1
[2017-07-07] MEDS: PRENATAL VITAMINS W/ FOLIC ACID TABLET (FP) PO SCH (10:49)
[2017-07-07] MEDS: SERTRALINE HCL 50 MG TABLET (FP) PO SCH (10:49)
[2017-07-07] MEDS: TOLNAFTATE 1% CREAM 15 GM TUBE TP SCH (10:50)
--- NOTE | 2017-07-07 17:28 | DS ---
[facility] Detox Discharge Summary Admission Date: 07/04/17 Discharge Date: 07/07/17 - History Present History: Alcohol Dependence, Cocaine Dependence Additional Comments: PATIENT ADVISED TO FOLLOW-UP WITH POLYGRAPH OPERATOR AT [facility] FOR MEDICAL AFTERCARE. PATIENT ALSO ADVISED TO CONSIDER LOCAL 12-STEP / NA/ AA OUTPATIENT SUPPORT GROUPS MEETINGS FOR AFTERCARE. PATIENT WAS DISCHARGED FROM DETOX UNIT IN STABLE MEDICAL CONDITION. Pertinent Past History: HIV, Depression, Insomnia, Hypercholesterolemia. - Physical Exam Results Vital Signs: Vital Signs Temperature 98.1 F 07/07/17 10:00 Pulse Rate 103 H 07/07/17 10:00 Respiratory Rate 18 07/07/17 10:00 Blood Pressure 119/80 07/07/17 10:00 O2 Sat by Pulse Oximetry (%) Pertinent Admission Physical Exam Findings: WITHDRAWAL SYMPTOMS. Laboratory Tests 07/05/17 07/05/17 07/05/17 07:00 07:00 07:00 WBC 5.6 RBC 4.81 Hgb 14.6 Hct 44.0 MCV 91.4 MCH 30.3 MCHC 33.1 RDW 14.1 Plt Count 224 MPV 7.8 Sodium 139 Potassium 3.6 Chloride 102 Carbon Dioxide 28 Anion Gap 9 BUN 9 Creatinine 1.0 Creat Clearance w eGFR > 60 Random Glucose 121 H D Calcium 8.7 Total Bilirubin 0.7 AST 24 ALT 26 D Alkaline Phosphatase 104 Total Protein 7.7 Albumin 3.3 L Urine Color Urine Appearance Urine pH Ur Specific [place] Urine Protein Urine Glucose (UA) Urine Ketones Urine Blood Urine Nitrite Urine Bilirubin Urine Urobilinogen Ur Leukocyte Esterase Urine RBC Urine WBC Urine Bacteria RPR Titer Reactive 1:8 H T.pallidum Ab (MHA) Previously reactive 07/06/17 09:40 WBC RBC Hgb Hct MCV MCH MCHC RDW Plt Count MPV Sodium Potassium Chloride Carbon Dioxide Anion Gap BUN Creatinine Creat Clearance w eGFR Random Glucose Calcium Total Bilirubin AST ALT Alkaline Phosphatase Total Protein Albumin Urine Color Lt. yellow Urine Appearance Clear Urine pH 6.0 Ur Specific [place] 1.020 Urine Protein Negative Urine Glucose (UA) Negative Urine Ketones Negative Urine Blood Negative Urine Nitrite Negative Urine Bilirubin Negative Urine Urobilinogen 0.2 Ur Leukocyte Esterase 1+ H D Urine RBC 1-2 Urine WBC Many Urine Bacteria Few RPR Titer T.pallidum Ab (MHA) LABS NOTED. - Treatment Hospital Course: Detox Protocol Followed, Detoxed Safely, Responded well, Discharged Condition Good Patient has Accepted a Rehab Referral to: NO. PT ADVISED TO CONSIDER LOCAL 12- STEP/NA SUPPORT GROUPS FOR AFTERCARE. - Medication Discharge Medications: Ambulatory Orders Quetiapine Fumarate [Seroquel -] 50 mg PO HS #30 tablet 06/21/17 Sertraline HCl [Zoloft -] 100 mg PO DAILY #30 tablet 06/21/17 Multivitamins 1 tablet PO DAILY 07/04/17 Pravastatin Sodium 10 mg PO HS 07/04/17 Clotrimazole [Clotrimazole AF] 1 applic TP BID #30 cream..g. 07/07/17 Emtricitab/Rilpiviri/Tenof Ala [Odefsey Tablet] 1 each PO DAILY #30 tablet 07/07 - Diagnosis (1) Alcohol dependence with uncomplicated withdrawal Status: Acute (2) Cocaine dependence Status: Acute Qualifiers: Substance use status: uncomplicated Qualified Code(s): F14.20 - Cocaine dependence, uncomplicated; F14.20 - Cocaine dependence, uncomplicated; F14.20 - Cocaine dependence, uncomplicated (3) Insomnia Status: Acute Qualifiers: Insomnia type: unspecified Qualified Code(s): G47.00 - Insomnia, unspecified; G47.00 - Insomnia, unspecified (4) Bipolar disorder Status: Chronic Qualifiers: Active/Remission status: remission status unspecified Qualified Code (s): F31.9 - Bipolar disorder, unspecified; F31.9 - Bipolar disorder, unspecified; F31.9 - Bipolar disorder, unspecified; F31.9 - Bipolar disorder, unspecified (5) Hypercholesterolemia Status: Chronic (6) HIV (human immunodeficiency virus infection) Status: Chronic - AMA Did Patient Leave Against Medical Advice: No
== END 2017-07-07 11:49 | disposition home or self-care (01) | DRG 774 ==
LOC: YASAS 02:38 → Y3N 02:42
PROVIDERS: ADMIT Internal Medicine; ATTEND Internal Medicine
PROC: HZ2ZZZZ Detoxification Services for Substance Abuse Treatment (ICD-10-PCS; principal; 2017-07-04)
DX: F10.230 Alcohol dependence with withdrawal, uncomplicated (principal); F14.20 Cocaine dependence, uncomplicated; F34.1 Dysthymic disorder; F31.9 Bipolar disorder, unspecified; E78.00 Pure hypercholesterolemia, unspecified; Z21 Asymptomatic human immunodeficiency virus [HIV] infection status; G47.00 Insomnia, unspecified; Z89.021 Acquired absence of right finger(s); Z87.898 Personal history of other specified conditions; Z59.0 Homelessness
CPT/HCPCS: 36415; 80053; 81003; 81015; 85027; 86593; 86780; 93005; 93010

== ENCOUNTER 2017-08-12 04:06 | Emergency (ER) | payer SELFPAY ==
[2017-08-12 04:10] VITALS: TEMP 97.9; BMI 29.2
--- NOTE | 2017-08-12 04:21 | PDOC ---
History of Present Illness - General Chief Complaint: Substance Abuse Stated Complaint: SUBSTANCE ABUSE Time Seen by Provider: 08/12/17 04:08 History Source: Patient Exam Limitations: No Limitations - History of Present Illness Initial Comments: 08/12/17 04:17 52-year-old male luiz with a history of HIV presents to the emergency department after a bystander called 911 when he screamed "I want to go home" down the block from his apartment. Pt states he was in a verbal altercation with his that when she asked him to leave for a couple of hours. Pt states he left but got angry when rehashing the argument and screamed. Patient states he had 2 cans of beer approximately 4 hours ago and smoked one small crack laced cigar 3 hours ago. Patient states he was completely lucid the whole time. He denies headache, dizziness, lightheadedness, visual disturbance, diplopia, neck pain/stiffness, back pains, chest pain, shortness of breath, abdominal pains, flank pain, extremity numbness or tingling sensation. Patient states he feels fine but EMS insists that he come to the emergency department because someone called 911. Patient adamantly denies any suicidal or homicidal thoughts/plan or ideation. Timing/Duration: momentarily Associated Symptoms: reports: denies symptoms Past History - Past Medical History Allergies/Adverse Reactions: Allergies Allergy/AdvReac Type Severity Reaction Status Date / Time No Known Allergies Allergy Verified 08/12/17 04:08 Home Medications: Ambulatory Orders Quetiapine Fumarate [Seroquel -] 50 mg PO HS #30 tablet 06/21/17 Sertraline HCl [Zoloft -] 100 mg PO DAILY #30 tablet 06/21/17 Multivitamins 1 tablet PO DAILY 07/04/17 Pravastatin Sodium 10 mg PO HS 07/04/17 Clotrimazole [Clotrimazole AF] 1 applic TP BID #30 cream..g. 07/07/17 Emtricitab/Rilpiviri/Tenof Ala [Odefsey Tablet] 1 each PO DAILY #30 tablet 07/07 Anemia: No Asthma: No Cancer: No Cardiac Disorders: No CVA: No COPD: No CHF: No Dementia: No Diabetes: No GI Disorders: No Disorders: No HTN: No Hypercholesterolemia: Yes (on med) Kidney Stones: No Liver Disease: Yes (hep b) Seizures: No Thyroid Disease: No - Surgical History Abdominal Surgery: No Appendectomy: No Cardiac Surgery: No Cholecystectomy: No Lung Surgery: No Neurologic Surgery: No Orthopedic Surgery: Yes (rt index finger amputates while cutting meat) - Reproductive History Testicular Surgery: No - Suicide/Smoking/Psychosocial Hx Smoking History: Current every day smoker Have you smoked in the past 12 months: Yes Number of Cigarettes Smoked Daily: 10 If you are a former smoker, when did you quit?: 05/21/17 Cigars Per Day: 0 Information on smoking cessation initiated: No 'Breaking Loose' booklet given: 07/04/17 Hx Alcohol Use: Yes Drug/Substance Use Hx: Yes (cocaine/pcp) Substance Use Type: Alcohol, Cocaine Hx Substance Use Treatment: Yes ([facility] 05/24/17 to 05/26/17) Review of Systems - Review of Systems Able to Perform ROS?: Yes Comments:: 08/12/17 04:20 CONSTITUTIONAL: Absent: fever, chills, diaphoresis, generalized weakness, malaise, loss of appetite HEENT: Absent: rhinorrhea, nasal congestion, throat pain, throat swelling, difficulty swallowing, mouth swelling, ear pain, eye pain, visual Changes CARDIOVASCULAR: Absent: chest pain, loss of consciousness, palpitations, irregular heart rate, peripheral edema RESPIRATORY: Absent: cough, shortness of breath, dyspnea with exertion, orthopnea, wheezing, stridor, hemoptysis GASTROINTESTINAL: Absent: abdominal pain, abdominal distension, nausea, vomiting, diarrhea, constipation, melena, hematochezia GENITOURINARY: Absent: dysuria, frequency, urgency, hesitancy, hematuria, flank pain, genital pain MUSCULOSKELETAL: Absent: myalgia, arthralgia, joint swelling SKIN: Absent: rash, itching, pallor HEMATOLOGIC/IMMUNOLOGIC: Absent: easy bleeding, easy bruising, lymphadenopathy, frequent infections ENDOCRINE: Absent: unexplained weight gain, unexplained weight loss, heat intolerance, cold intolerance NEUROLOGIC: Absent: headache, focal weakness or paresthesias, dizziness, unsteady gait, seizure, mental status changes, bladder or bowel incontinence PSYCHIATRIC: Absent: anxiety, depression, suicidal or homicidal ideation, hallucinations. Is the patient limited Tamazight proficient: No *Physical Exam - Vital Signs Last Vital Signs Temp Pulse Resp BP Pulse Ox 97.9 F 136 H 20 135/91 98 08/12/17 04:08 08/12/17 04:08 08/12/17 04:08 08/12/17 04:08 08/12/17 04:08 - Physical Exam Comments: 08/12/17 04:20 GENERAL: Well developed, well nourished. Awake and alert. No acute distress. HEENT: Normocephalic, atraumatic. PERRLA, EOMI. No conjunctival pallor. Sclera are non- icteric. Moist mucous membranes. Oropharynx is clear. NECK: Supple. Full ROM. No JVD. Carotid pulses 2+ and symmetric, without bruits. No thyromegaly. No lymphadenopathy. CARDIOVASCULAR: Regular rate and rhythm. No murmurs, rubs, or gallops. Distal pulses are 2+ and symmetric. PULMONARY: No evidence of respiratory distress. Lungs clear to auscultation bilaterally. No wheezing, rales or rhonchi. ABDOMINAL: Soft. Non-tender. Non-distended. No rebound or guarding. No organomegaly. Normoactive bowel sounds. MUSCULOSKELETAL Normal range of motion at all joints. No bony deformities or tenderness. No CVA tenderness. EXTREMITIES: No cyanosis. No clubbing. No edema. No calf tenderness. SKIN: Warm and dry. Normal capillary refill. No rashes. No jaundice. NEUROLOGICAL: Alert, awake, appropriate. Cranial nerves 2-12 intact. No deficits to light touch and temperature in face, upper extremities and lower extremities. No motor deficits in the in face, upper extremities and lower extremities. Normoreflexic in the upper and lower extremities. Normal speech. Toes are down- going bilaterally. Gait is normal without ataxia. PSYCHIATRIC: Cooperative. Good eye contact. Appropriate mood and affect. *DC/Admit/Observation/Transfer Diagnosis at time of Disposition: Crack cocaine use - Discharge Dispostion Disposition: HOME Condition at time of disposition: Stable Admit: No - Referrals Referrals: Lauren Galdamez MD [Staff Physician] - - Patient Instructions Additional Instructions: Avoid elicit drugs Rest Follow up with your physician Return to the ER for any concerns - Post Discharge Activity
[2017-08-12 06:39] VITALS: BP 134/90; PULSE 82
== END 2017-08-12 06:39 | disposition home or self-care (01) ==
LOC: JER 04:06
DX: F14.90 Cocaine use, unspecified, uncomplicated (principal); Z21 Asymptomatic human immunodeficiency virus [HIV] infection status; E78.00 Pure hypercholesterolemia, unspecified; B19.10 Unspecified viral hepatitis B without hepatic coma; F17.210 Nicotine dependence, cigarettes, uncomplicated
CPT/HCPCS: 99281-25; 99282-25

== ENCOUNTER 2019-02-25 09:25 | Inpatient (IN) | payer OTHER ==
[2019-02-25 11:02] VITALS: BMI 27.6
--- NOTE | 2019-02-25 12:17 | HP ---
CIWA Score Nausea/Vomitin Muscle Tremors: 2 Anxiety: 2 Agitation: 2 Paroxysmal Sweats: 1-Minimal Palms Moist Orientation: 0-Oriented Tacttile Disturbances: 1-Very Mild Itch/Numbness Auditory Disturbances: 1-Very Mild Visual Disturbances: 0-None Headache: 2-Mild CIWA-Ar Total Score: 13 - Admission Criteria OASAS Guidelines: Admission for Medically Managed Detox: Requires at least one of the followin. CIWA greater than 12 2. Seizures within the past 24 hours 3. Delirium tremens within the past 24 hours 4. Hallucinations within the past 24 hours 5. Acute intervention needed for co occurring medical disorder 6. Acute intervention needed for co occurring psychiatric disorder 7. Severe withdrawal that cannot be handled at a lower level of care (continued vomiting, continued diarrhea, abnormal vital signs) requiring intravenous medication and/or fluids 8. Admission ROS BHS - HPI Chief Complaint: i need help to stop drinking alcohol and cocaine Allergies/Adverse Reactions: Allergies Allergy/AdvReac Type Severity Reaction Status Date / Time No Known Allergies Allergy Verified 02/25/19 10:47 History of Present Illness: this 53 years old male with alcohol and cocaine dependence,seeking detox, withdrawal symptom, seeking help last detox 07/04/17 to 10/07/18 nicotine dependence 10 cigarette,would like to have patch history of bipolar disorder on med plan for rehab after detox history of hypercholesterolemia history of hiv Exam Limitations: No Limitations - Ebola screening Have you traveled outside of the country in the last 21 days: No Have you had contact with anyone from an Ebola affected area: No - Review of Systems Constitutional: Loss of Appetite, Malaise, Night Sweats, Changes in sleep, Weakness EENT: reports: Nose Congestion Respiratory: reports: No Symptoms reported Cardiac: reports: No Symptoms Reported GI: reports: Nausea, Abdominal cramping : reports: No Symptoms Reported Musculoskeletal: reports: Back Pain, Joint Pain, Muscle Pain Integumentary: reports: Dryness Neuro: reports: Tremors Endocrine: reports: No Symptoms Reported Hematology: reports: No Symptoms Reported, Other (hiv for 25 years) Psychiatric: reports: No Sypmtoms Reported, Judgement Intact, Mood/Affect Appropiate, Orientated x3, other (bipolar disorder) Patient History - Patient Medical History Hx Anemia: No Hx Asthma: No Hx Chronic Obstructive Pulmonary Disease (COPD): No Hx Cancer: No Hx Cardiac Disorders: No Hx Congestive Heart Failure: No Hx Hypertension: No Hx Hypercholesterolemia: Yes (on med) Hx Pacemaker: No HX Cerebrovascular Accident: No Hx Seizures: No Hx Dementia: No Hx Diabetes: No Hx Gastrointestinal Disorders: No Hx Liver Disease: Yes (CHRONIC HEPATITIS B) Hx Genitourinary Disorders: No Hx Sexually Transmitted Disorders: No Hx Renal Disease (ESRD): No Hx Thyroid Disease: No Hx Human Immunodeficiency Virus (HIV): Yes (since 1998) Hx Hepatitis C: No Hx Depression: Yes Hx Suicide Attempt: No Hx Bipolar Disorder: Yes Hx Schizophrenia: No Other Medical History: no sucidal,no homicidal - Patient Surgical History Past Surgical History: Yes Hx Neurologic Surgery: No Hx Cataract Extraction: No Hx Cardiac Surgery: No Hx Lung Surgery: No Hx Breast Surgery: No Hx Breast Biopsy: No Hx Abdominal Surgery: No Hx Appendectomy: No Hx Cholecystectomy: No Hx Genitourinary Surgery: No Hx Orthopedic Surgery: Yes (rt index finger amputates while cutting meat) Other Surgical History: Inguinal hernia repair, ~2000 right Anesthesia Reaction: No - PPD History Documented Results: Positive w/proof Results: cxr/ neg PPD to be Administered?: No - Smoking Cessation Smoking history: Current every day smoker Have you smoked in the past 12 months: Yes Aproximately how many cigarettes per day: 10 If you are a former smoker, when did you quit?: 05/21/17 Cigars Per Day: 0 Hx Chewing Tobacco Use: No Initiated information on smoking cessation: Yes 'Breaking Loose' booklet given: 02/25/19 - Substance & Tx. History Hx Alcohol Use: Yes Hx Substance Use: Yes Substance Use Type: Alcohol, Cocaine Hx Substance Use Treatment: Yes ([facility] 07/04/17 to 07/07/17) - Substances abused Alcohol Substance route: Oral Frequency: Daily Amount used: half a pint of voldka/6 pcks of 12 ozs of beer Age of first use: 16 Date of last use: 02/25/19 Crack Substance route: Smoking Frequency: Daily Amount used: 10 bags Age of first use: 17 Date of last use: 02/24/19 Family Disease History - Family Disease History Family Disease History: Diabetes: Mother (d. breast cancer, age 78), Heart Disease: Father (colon cancer - dx 2004, approx age 72; alive age 83), Mother, CA: Father, Mother, Other: Sister (sister- lupus) Admission Physical Exam S - Vital Signs Vital Signs: Vital Signs - 24 hr 02/25/19 10:44 Temperature 98.3 F Pulse Rate 88 Respiratory 18 Rate Blood Pressure 119/78 - Physical General Appearance: Yes: Moderate Distress, Tremorous, Irritable, Sweating, Anxious HEENTM: Yes: Normal ENT Inspection, MYLENE, Pharynx Normal Respiratory: Yes: Within Normal Limits, Lungs Clear, Normal Breath Sounds Neck: Yes: Within Normal Limits, Supple, Trachea in good position Breast: Yes: Within Normal Limits Cardiology: Yes: Within Normal Limits, Regular Rhythm, Regular Rate, S1, S2 Abdominal: Yes: Within Normal Limits, Normal Bowel Sounds, Non Tender, Soft Genitourinary: Yes: Within Normal Limits Back: Yes: Muscle Spasm Musculoskeletal: Yes: Back pain, Muscle Pain Extremities: Yes: Within Normal Limits, Normal Range of Motion, Tremors Neurological: Yes: electrotype finisher II-XII NML intact, Alert, Motor Strength 5/5 Integumentary: Yes: Dry Lymphatic: Yes: Within Normal Limits - Diagnostic (1) Alcohol dependence with uncomplicated withdrawal Current Visit: Yes Status: Acute (2) Cocaine dependence Current Visit: Yes Status: Chronic Qualifiers: Substance use status: uncomplicated Qualified Code(s): F14.20 - Cocaine dependence, uncomplicated Comment: going to treatment at [facility] encouraged treatment, relapse prevention has support of his sponsor (3) Weight loss Current Visit: No Status: Acute (4) Bipolar disorder Current Visit: No Status: Chronic Qualifiers: Active/Remission status: remission status unspecified Qualified Code(s): F31.9 - Bipolar disorder, unspecified Comment: pt to schedule appt w/ Dr. Steward; had previously d/w Dr. Steward about med refills but pt was requested to come in as pt has not been seen since August?; pt did not come in until now; will d/w Dr. Steward tomorrow ( monday, 11/28) about refilling meds x 1 wk. Per RN, pt left w/o labs, bicillin injection. Called pt and pt not ready to talk. Spoke w/ Dr. Steward on 11/28 - agreeable to refill meds x 1 wk until pt can come in next week. Called pt to discuss, but pt still upset and not willing to talk. (5) HIV (human immunodeficiency virus infection) Current Visit: No Status: Chronic Comment: stable on odefsey, cd4 [id number], vl [id number] discussed adherence, benefits/goals of tx, importance of f/u and monitoring (6) Hypercholesterolemia Current Visit: No Status: Chronic Comment: on pravastatin - ? adherence; f/ u next visit Cleared for Admission [facility] - Detox or Rehab [facility] Level of Care: Medically Managed Detox Regimen/Protocol: Librium Breathalyzer - Breathalyzer Breathalyzer: 0.018 Urine Drug Screen - Test Device Lot number: [id number] Expiration date: 11/08/20 - Control Is test valid?: Yes - Results Drug screen NEGATIVE: No Urine drug screen results: FELICITAS-Cocaine Inpatient Rehab Admission - Rehab Decision to Admit Inpatient rehab admission?: No
[2019-02-25] MEDS ORDERED: IBUPROFEN 400 MG TABLET (FP) PO PRN (12:35)
[2019-02-25] MEDS ORDERED: ACETAMINOPHEN 325 MG TABLET (FP) PO PRN ×2 (12:35)
[2019-02-25] MEDS ORDERED: MENTHOL/PHENOL 1 EACH UD MM PRN (12:35)
[2019-02-25] MEDS ORDERED: chlordiazePOXIDE HCL 25 MG CAPSULE PO PRN (12:35)
[2019-02-25] MEDS ORDERED: hydrOXYzine PAMOATE 25 MG CAPSULE (FP) PO PRN (12:35)
[2019-02-25] MEDS ORDERED: BISMUTH SUBSALICYLATE 524 MG/30 ML UD PO PRN (12:35)
[2019-02-25] MEDS ORDERED: MAGNESIUM HYDROX 2400MG/30ML ORAL SUSPENSION 30 ML CUP PO PRN (12:35)
[2019-02-25] MEDS ORDERED: MELATONIN 5 MG TABLETS PO PRN (12:35)
[2019-02-25] MEDS ORDERED: MAGNESIUM CITRATE 300 ML BOTTLE PO PRN (12:35)
[2019-02-25] MEDS ORDERED: MAG HYDROX/AL HYDROX/SIMETH 30 ML UNIT-DOSE CUP PO PRN (12:35)
[2019-02-25] MEDS ORDERED: METHOCARBAMOL 500 MG TABLET PO PRN (12:35)
[2019-02-25] MEDS: NICOTINE 21 MG/24 HOURS TOPICAL PATCH TD SCH (13:18)
[2019-02-25 14:48] LABS: HEMATOCRIT 40.5 % (35.4-49); HEMOGLOBIN 13.5 GM/dL (11.7-16.9); MCH 30.6 pg (25.7-33.7); MCHC 33.4 g/dl (32.0-35.9); MEAN CELL VOLUME 91.5 fl (80-96); MEAN PLT VOLUME 7.9 fl (7.5-11.1); RBC 4.43 M/mm3 (4.00-5.60)
[2019-02-25 15:01] LABS: PLATELET COUNT 209 K/MM3 (134-434)
--- NOTE | 2019-02-25 15:28 | CONSULT ---
[facility] Psychiatric Consult - Data Date of interview: 02/25/19 Admission source: [facility] Identifying data: Readmission to [facility] for this 53 y/o AA male self- referred for detoxification treatment (alcohol, cocaine). Examined at [address] [place] [address]. 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 Substance Abuse History: Confirmed by patient in this interview.Details in current [facility] report as follows : Smoking history: Current every day smoker. Have you smoked in the past 12 months: Yes. Aproximately how many cigarettes per day: 10. If you are a former smoker, when did you quit?: 05/21/17. Cigars Per Day: 0. Hx Chewing Tobacco Use: No. Initiated information on smoking cessation: Yes. 'Breaking Loose' booklet given: 02/25/19. - Substance & Tx. History. Hx Alcohol Use: Yes. Hx Substance Use: Yes. Substance Use Type: Alcohol, Cocaine. Hx Substance Use Treatment: Yes ([facility] 07/04/17 to 07/07/17). - Substances abused. Alcohol. Substance route: Oral. Frequency: Daily. Amount used: half a pint of voldka/6 pcks of 12 ozs of beer. Age of first use: 16. Date of last use: 02/25/19. Crack. Substance route: Smoking. Frequency: Daily. Amount used: 10 bags. Age of first use: 17. Date of last use: 02/24/19 Medical History: Remarkable for HIV infection since 1996, hepatitis B, hypercholesterolemia, past treatment for syphilis and a history of inguinal herniorraphy (2000). Noted additional history of accidental amputation of right index (while cutting meat). Psychiatric History: Patient denies history of psychatric hospitalizations. Mr Wynn gets psychiatric OPD services at the [facility], in [facility]. Patient is under the care of Dr Steward. Diagnosed with Bipolar Disorder. Prescribed seroquel 100 mg/hs + wellbutrin XL 150 mg/day (confirmed by Dr Heredia's note of 02/06/19 at [facility]). Patient denies history of suicide attempts. Physical/Sexual Abuse/Trauma History: Patient denies history of abuse. Additional Comment: Urine drug screen results: FELICITAS-Cocaine. Noted. Mental Status Exam - Mental Status Exam Alert and Oriented to: Time, Place, Person Cognitive Function: Good Patient Appearance: Well Groomed Mood: Withdrawn, Hopeful Affect: Appropriate, Normal Range Patient Behavior: Fatigued, Appropriate, Cooperative Speech Pattern: Clear, Appropriate Voice Loudness: Normal Thought Process: Goal Oriented Thought Disorder: Not Present Hallucinations: Denies Suicidal Ideation: Denies Homicidal Ideation: Denies Insight/Judgement: Poor Sleep: Fair Appetite: Good Muscle strength/Tone: Normal Gait/Station: Normal Psychiatric Findings - Problem List ([place] 1, 2,3) (1) Alcohol dependence with uncomplicated withdrawal Current Visit: Yes Status: Acute (2) Cocaine dependence Current Visit: Yes Status: Chronic Qualifiers: Substance use status: uncomplicated Qualified Code(s): F14.20 - Cocaine dependence, uncomplicated Comment: going to treatment at [facility] encouraged treatment, relapse prevention has support of his sponsor (3) Nicotine dependence Current Visit: Yes Status: Chronic (4) Drug-induced mood disorder Current Visit: Yes Status: Chronic (5) History of bipolar disorder Current Visit: Yes Status: Chronic (6) Insomnia Current Visit: Yes Status: Chronic Qualifiers: Insomnia type: unspecified Qualified Code(s): G47.00 - Insomnia, unspecified (7) Non-compliance Current Visit: Yes Status: Chronic - Initial Treatment Plan Initial Treatment Plan: Records reviewed ([facility]). [facility] follow-up notes are read and appreciated. Psychoeducation. Sleep hygiene. Detoxification. AA meetings. Groups. Motivational counseling sessions. Medications resumed as : wellbutrin XL 150 mg po daily + seroquel 100 mg po hs. Side effects/benefits of both drugs are discussed with the patient. Mr Wynn gave his verbal consent to MD for this plan of care. Observation.
[2019-02-25 16:25] LABS: ALBUMIN 3.6 g/dl (3.4-5.0); BILIRUBIN,TOTAL 0.3 mg/dL (0.2-1); BLOOD UREA NITROGEN 13.2 mg/dL (7-18); CALCIUM 8.7 mg/dL (8.5-10.1); CREATININE 1.1 mg/dL (0.55-1.3); POTASSIUM 3.9 mmol/L (3.5-5.1); TOT PROT 7.7 g/dl (6.4-8.2)
[2019-02-25] MEDS: chlordiazePOXIDE HCL 25 MG CAPSULE PO SCH ×2 (17:15→23:06)
[2019-02-25] MEDS: PATIENT'S OWN MEDICATION (NON-FORMULARY) (Pravastatin Sodium 20 MG) PO SCH (23:06)
[2019-02-25] MEDS: QUEtiapine FUMARATE 100 MG TABLET (FP) PO SCH (23:06)
[2019-02-25] MEDS: THIAMINE HCL 100 MG TABLET (FP) PO SCH (23:06)
[2019-02-26] MEDS ORDERED: traZODone HCL 50 MG TABLET (FP) PO ONE (00:18)
[2019-02-26] MEDS ORDERED: QUEtiapine FUMARATE 100 MG TABLET (FP) PO ONE (00:19)
[2019-02-26] MEDS: chlordiazePOXIDE HCL 25 MG CAPSULE PO SCH ×4 (06:17→22:10)
[2019-02-26 10:00] LABS: RPR REACTIVE 1:4 (NONREACTIVE)
[2019-02-26 10:01] LABS: TREPONEMA ANTIBODY PREVIOUSLY REACTIVE (NONREACTIVE)
[2019-02-26] MEDS: PRENATAL VITAMINS W/ FOLIC ACID TABLET (FP) PO SCH (10:49)
[2019-02-26] MEDS: NICOTINE 21 MG/24 HOURS TOPICAL PATCH TD SCH (10:49)
--- NOTE | 2019-02-26 12:01 | PN ---
S CIWA - CIWA Score Nausea/Vomitin Muscle Tremors: 2 Anxiety: 2 Agitation: 2 Paroxysmal Sweats: 1-Minimal Palms Moist Orientation: 0-Oriented Tacttile Disturbances: 1-Very Mild Itch/Numbness Auditory Disturbances: 1-Very Mild Visual Disturbances: 0-None Headache: 1-Very Mild CIWA-Ar Total Score: 12 BHS Progress Note (SOAP) Subjective: alert,irritable,anxious,interrupted sleep,tremor Objective: 02/26/19 12:00 Vital Signs Temperature 96.6 F L 02/26/19 09:43 Pulse Rate 83 02/26/19 09:43 Respiratory Rate 18 02/26/19 09:43 Blood Pressure 122/85 02/26/19 09:43 O2 Sat by Pulse Oximetry (%) Laboratory Last Values WBC 5.0 K/mm3 (4.0-10.0) 02/25/19 12:30 RBC 4.43 M/mm3 (4.00-5.60) 02/25/19 12:30 Hgb 13.5 GM/dL (11.7-16.9) 02/25/19 12:30 Hct 40.5 % (35.4-49) 02/25/19 12:30 MCV 91.5 fl (80-96) 02/25/19 12:30 MCH 30.6 pg (25.7-33.7) 02/25/19 12:30 MCHC 33.4 g/dl (32.0-35.9) 02/25/19 12:30 RDW 14.0 % (11.9-15.9) 02/25/19 12:30 Plt Count 209 K/MM3 (134-434) 02/25/19 12:30 MPV 7.9 fl (7.5-11.1) D 02/25/19 12:30 Sodium 142 mmol/L (136-145) 02/25/19 12:30 Potassium 3.9 mmol/L (3.5-5.1) 02/25/19 12:30 Chloride 107 mmol/L (98-107) 02/25/19 12:30 Carbon Dioxide 30 mmol/L (21-32) 02/25/19 12:30 Anion Gap 5 MMOL/L (8-16) L 02/25/19 12:30 BUN 13.2 mg/dL (7-18) 02/25/19 12:30 Creatinine 1.1 mg/dL (0.55-1.3) 02/25/19 12:30 Est GFR (CKD-EPI)AfAm 87.74 02/25/19 12:30 Est GFR (CKD-EPI)NonAf 75.70 02/25/19 12:30 Random Glucose 78 mg/dL (74-106) 02/25/19 12:30 Calcium 8.7 mg/dL (8.5-10.1) 02/25/19 12:30 Total Bilirubin 0.3 mg/dL (0.2-1) 02/25/19 12:30 AST 27 U/L (15-37) 02/25/19 12:30 ALT 34 U/L (13-61) 02/25/19 12:30 Alkaline Phosphatase 99 U/L (45-117) 02/25/19 12:30 Total Protein 7.7 g/dl (6.4-8.2) 02/25/19 12:30 Albumin 3.6 g/dl (3.4-5.0) 02/25/19 12:30 RPR Titer Reactive 1:4 (NONREACTIVE) H 02/25/19 12:30 T.pallidum Ab ([facility]) Previously reactive (NONREACTIVE) 02/25/19 12:30 02/26/19 12:04 previously treated for syphilis Assessment: 02/26/19 12:05 withdrawal symptom Plan: continue detox
[2019-02-26 19:19] LABS: PH,URINE 6.5 (5.0-8.0); URINE APPEARANCE CLEAR; URINE BILIRUBIN NEGATIVE (NEGATIVE); URINE COLOR YELLOW; URINE GLUCOSE (UA) NEGATIVE (NEGATIVE); URINE KETONE NEGATIVE (NEGATIVE); URINE LEUK ESTERASE NEGATIVE (NEGATIVE); URINE NITRITE NEGATIVE (NEGATIVE); URINE PROTEIN NEGATIVE (NEGATIVE)
[2019-02-26] MEDS: PATIENT'S OWN MEDICATION (NON-FORMULARY) (Pravastatin Sodium 20 MG) PO SCH (22:10)
[2019-02-26] MEDS: QUEtiapine FUMARATE 100 MG TABLET (FP) PO SCH (22:10)
[2019-02-26] MEDS: THIAMINE HCL 100 MG TABLET (FP) PO SCH (22:10)
[2019-02-27] MEDS: chlordiazePOXIDE HCL 25 MG CAPSULE PO SCH ×2 (05:43→10:13)
[2019-02-27] MEDS: NICOTINE 21 MG/24 HOURS TOPICAL PATCH TD SCH (10:12)
[2019-02-27] MEDS: PRENATAL VITAMINS W/ FOLIC ACID TABLET (FP) PO SCH (10:12)
--- NOTE | 2019-02-27 15:18 | PN ---
S CIWA - CIWA Score Nausea/Vomitin-No Nausea/No Vomiting Muscle Tremors: None Anxiety: 4-Mod. Anxious/Guarded Agitation: 1-Slight > Activity Paroxysmal Sweats: 2 Orientation: 0-Oriented Tacttile Disturbances: 0-None Auditory Disturbances: 0-None Visual Disturbances: 2-Mild Sensitivity Headache: 0-None Present CIWA-Ar Total Score: 9 BHS Progress Note (SOAP) Subjective: Anxious, Sweating, Interrupted Sleep. Objective: PATIENT A & O X 3, OBSERVED AMBULATING ON UNIT UNASSISTED. IN NO ACUTE DISTRESS. 02/27/19 15:18 Vital Signs Temperature 98.0 F 02/27/19 13:13 Pulse Rate 87 02/27/19 13:13 Respiratory Rate 18 02/27/19 13:13 Blood Pressure 124/81 02/27/19 13:13 O2 Sat by Pulse Oximetry (%) Laboratory Tests 02/25/19 02/25/19 02/25/19 12:30 12:30 12:30 WBC 5.0 RBC 4.43 Hgb 13.5 Hct 40.5 MCV 91.5 MCH 30.6 MCHC 33.4 RDW 14.0 Plt Count 209 MPV 7.9 D Sodium 142 Potassium 3.9 Chloride 107 Carbon Dioxide 30 Anion Gap 5 L BUN 13.2 Creatinine 1.1 Est GFR (CKD-EPI)AfAm 87.74 Est GFR (CKD-EPI)NonAf 75.70 Random Glucose 78 Calcium 8.7 Total Bilirubin 0.3 AST 27 ALT 34 Alkaline Phosphatase 99 Total Protein 7.7 Albumin 3.6 Urine Color Urine Appearance Urine pH Ur Specific [place] Urine Protein Urine Glucose (UA) Urine Ketones Urine Blood Urine Nitrite Urine Bilirubin Urine Urobilinogen Ur Leukocyte Esterase Urine WBC (Auto) Urine RBC (Auto) Urine Casts (Auto) U Pathogenic Cast Auto U Epithel Cells (Auto) U Sm Round Cell (Auto) Urine Crystals (Auto) Urine Bacteria (Auto) RPR Titer Reactive 1:4 H T.pallidum Ab (A) Previously reactive 02/25/19 15:45 WBC RBC Hgb Hct MCV MCH MCHC RDW Plt Count MPV Sodium Potassium Chloride Carbon Dioxide Anion Gap BUN Creatinine Est GFR (CKD-EPI)AfAm Est GFR (CKD-EPI)NonAf Random Glucose Calcium Total Bilirubin AST ALT Alkaline Phosphatase Total Protein Albumin Urine Color Yellow Urine Appearance Clear Urine pH 6.5 Ur Specific [place] 1.017 Urine Protein Negative Urine Glucose (UA) Negative Urine Ketones Negative Urine Blood Negative Urine Nitrite Negative Urine Bilirubin Negative Urine Urobilinogen 1.0 Ur Leukocyte Esterase Negative Urine WBC (Auto) No Result Required. Urine RBC (Auto) No Result Required. Urine Casts (Auto) No Result Required. U Pathogenic Cast Auto No Result Required. U Epithel Cells (Auto) No Result Required. U Sm Round Cell (Auto) No Result Required. Urine Crystals (Auto) No Result Required. Urine Bacteria (Auto) No Result Required. RPR Titer T.pallidum Ab ([facility]) LABS NOTED. Assessment: 02/27/19 15:26 WITHDRAWAL SYMPTOMS. Plan: CONTINUE DETOX.
[2019-02-27] MEDS ORDERED: chlordiazePOXIDE HCL 10 MG CAPSULE PO PRN (17:00)
[2019-02-27] MEDS: chlordiazePOXIDE HCL 10 MG CAPSULE PO SCH (19:44)
[2019-02-27] MEDS: PATIENT'S OWN MEDICATION (NON-FORMULARY) (Pravastatin Sodium 20 MG) PO SCH (22:14)
[2019-02-27] MEDS: QUEtiapine FUMARATE 100 MG TABLET (FP) PO SCH (22:15)
[2019-02-27] MEDS: THIAMINE HCL 100 MG TABLET (FP) PO SCH (22:16)
[2019-02-28] MEDS: chlordiazePOXIDE HCL 10 MG CAPSULE PO SCH ×4 (00:33→17:31)
[2019-02-28] MEDS: NICOTINE 21 MG/24 HOURS TOPICAL PATCH TD SCH (10:20)
[2019-02-28] MEDS: PRENATAL VITAMINS W/ FOLIC ACID TABLET (FP) PO SCH (10:22)
--- NOTE | 2019-02-28 15:18 | PN ---
S CIWA - CIWA Score Nausea/Vomitin-No Nausea/No Vomiting Muscle Tremors: None Anxiety: 0-No Anxiety, at Ease Agitation: 2 Paroxysmal Sweats: No Perspiration Orientation: 0-Oriented Tacttile Disturbances: 0-None Auditory Disturbances: 0-None Visual Disturbances: 0-None Headache: 0-None Present CIWA-Ar Total Score: 2 BHS Progress Note (SOAP) Subjective: Patient denies current Withdrawal / Detox symptoms and reports that he feels well overall at this time. Objective: PATIENT A & O X 3, OBSERVED AMBULATING ON UNIT UNASSISTED. IN NO ACUTE DISTRESS. 02/28/19 15:17 Vital Signs Temperature 98.3 F 02/28/19 13:53 Pulse Rate 86 02/28/19 13:53 Respiratory Rate 18 02/28/19 13:53 Blood Pressure 110/71 02/28/19 13:53 O2 Sat by Pulse Oximetry (%) Laboratory Tests 02/25/19 02/25/19 02/25/19 12:30 12:30 12:30 WBC 5.0 RBC 4.43 Hgb 13.5 Hct 40.5 MCV 91.5 MCH 30.6 MCHC 33.4 RDW 14.0 Plt Count 209 MPV 7.9 D Sodium 142 Potassium 3.9 Chloride 107 Carbon Dioxide 30 Anion Gap 5 L BUN 13.2 Creatinine 1.1 Est GFR (CKD-EPI)AfAm 87.74 Est GFR (CKD-EPI)NonAf 75.70 Random Glucose 78 Calcium 8.7 Total Bilirubin 0.3 AST 27 ALT 34 Alkaline Phosphatase 99 Total Protein 7.7 Albumin 3.6 Urine Color Urine Appearance Urine pH Ur Specific [place] Urine Protein Urine Glucose (UA) Urine Ketones Urine Blood Urine Nitrite Urine Bilirubin Urine Urobilinogen Ur Leukocyte Esterase Urine WBC (Auto) Urine RBC (Auto) Urine Casts (Auto) U Pathogenic Cast Auto U Epithel Cells (Auto) U Sm Round Cell (Auto) Urine Crystals (Auto) Urine Bacteria (Auto) RPR Titer Reactive 1:4 H T.pallidum Ab ([facility]) Previously reactive 02/25/19 15:45 WBC RBC Hgb Hct MCV MCH MCHC RDW Plt Count MPV Sodium Potassium Chloride Carbon Dioxide Anion Gap BUN Creatinine Est GFR (CKD-EPI)AfAm Est GFR (CKD-EPI)NonAf Random Glucose Calcium Total Bilirubin AST ALT Alkaline Phosphatase Total Protein Albumin Urine Color Yellow Urine Appearance Clear Urine pH 6.5 Ur Specific [place] 1.017 Urine Protein Negative Urine Glucose (UA) Negative Urine Ketones Negative Urine Blood Negative Urine Nitrite Negative Urine Bilirubin Negative Urine Urobilinogen 1.0 Ur Leukocyte Esterase Negative Urine WBC (Auto) No Result Required. Urine RBC (Auto) No Result Required. Urine Casts (Auto) No Result Required. U Pathogenic Cast Auto No Result Required. U Epithel Cells (Auto) No Result Required. U Sm Round Cell (Auto) No Result Required. Urine Crystals (Auto) No Result Required. Urine Bacteria (Auto) No Result Required. RPR Titer T.pallidum Ab ([facility]) LABS NOTED. Assessment: 02/28/19 15:17 WITHDRAWAL SYMPTOMS. Plan: CONTINUE DETOX. PATIENT SCHEDULED FOR D/C TOMORROW.
[2019-02-28] MEDS: PATIENT'S OWN MEDICATION (NON-FORMULARY) (Pravastatin Sodium 20 MG) PO SCH (22:13)
[2019-02-28] MEDS: THIAMINE HCL 100 MG TABLET (FP) PO SCH (22:13)
[2019-02-28] MEDS: QUEtiapine FUMARATE 100 MG TABLET (FP) PO SCH (22:13)
[2019-03-01] MEDS: chlordiazePOXIDE HCL 10 MG CAPSULE PO SCH (06:06)
[2019-03-01 07:29] VITALS: BP 99/70; PULSE 74; TEMP 97.2
[2019-03-01] MEDS: NICOTINE 21 MG/24 HOURS TOPICAL PATCH TD SCH (10:06)
[2019-03-01] MEDS: PRENATAL VITAMINS W/ FOLIC ACID TABLET (FP) PO SCH (10:24)
--- NOTE | 2019-03-01 17:15 | DS ---
[facility] Detox Discharge Summary Admission Date: 02/25/19 Discharge Date: 03/01/19 - History Present History: Alcohol Dependence, Cocaine Dependence Additional Comments: PATIENT GOING TO [facility] ([place], [place]) FOR AFTERCARE. PATIENT WA SDISHCARGED FORM DETOX UNIT IN STABLE MEDICAL CONDITION. Pertinent Past History: Nicotine Dependence, History Of Bipolar Disorder, Hypercholesterolemia, H.I.V., Depression, Hep B, Weight Loss, Insomnia. - Physical Exam Results Vital Signs: Vital Signs Temperature 97.2 F L 03/01/19 06:00 Pulse Rate 74 03/01/19 06:00 Respiratory Rate 18 03/01/19 06:30 Blood Pressure 99/70 03/01/19 06:00 O2 Sat by Pulse Oximetry (%) Pertinent Admission Physical Exam Findings: WITHDRAWAL SYMPTOMS. Laboratory Tests 02/25/19 02/25/19 02/25/19 12:30 12:30 12:30 WBC 5.0 RBC 4.43 Hgb 13.5 Hct 40.5 MCV 91.5 MCH 30.6 MCHC 33.4 RDW 14.0 Plt Count 209 MPV 7.9 D Sodium 142 Potassium 3.9 Chloride 107 Carbon Dioxide 30 Anion Gap 5 L BUN 13.2 Creatinine 1.1 Est GFR (CKD-EPI)AfAm 87.74 Est GFR (CKD-EPI)NonAf 75.70 Random Glucose 78 Calcium 8.7 Total Bilirubin 0.3 AST 27 ALT 34 Alkaline Phosphatase 99 Total Protein 7.7 Albumin 3.6 Urine Color Urine Appearance Urine pH Ur Specific [place] Urine Protein Urine Glucose (UA) Urine Ketones Urine Blood Urine Nitrite Urine Bilirubin Urine Urobilinogen Ur Leukocyte Esterase Urine WBC (Auto) Urine RBC (Auto) Urine Casts (Auto) U Pathogenic Cast Auto U Epithel Cells (Auto) U Sm Round Cell (Auto) Urine Crystals (Auto) Urine Bacteria (Auto) RPR Titer Reactive 1:4 H T.pallidum Ab ([facility]) Previously reactive 02/25/19 15:45 WBC RBC Hgb Hct MCV MCH MCHC RDW Plt Count MPV Sodium Potassium Chloride Carbon Dioxide Anion Gap BUN Creatinine Est GFR (CKD-EPI)AfAm Est GFR (CKD-EPI)NonAf Random Glucose Calcium Total Bilirubin AST ALT Alkaline Phosphatase Total Protein Albumin Urine Color Yellow Urine Appearance Clear Urine pH 6.5 Ur Specific [place] 1.017 Urine Protein Negative Urine Glucose (UA) Negative Urine Ketones Negative Urine Blood Negative Urine Nitrite Negative Urine Bilirubin Negative Urine Urobilinogen 1.0 Ur Leukocyte Esterase Negative Urine WBC (Auto) No Result Required. Urine RBC (Auto) No Result Required. Urine Casts (Auto) No Result Required. U Pathogenic Cast Auto No Result Required. U Epithel Cells (Auto) No Result Required. U Sm Round Cell (Auto) No Result Required. Urine Crystals (Auto) No Result Required. Urine Bacteria (Auto) No Result Required. RPR Titer T.pallidum Ab (A) LABS NOTED. - Treatment Hospital Course: Detox Protocol Followed, Detoxed Safely, Responded well, Discharged Condition Good, Rehab Referral Accepted Patient has Accepted a Rehab Referral to: [facility] ([place], [place]). - Medication Discharge Medications: Ambulatory Orders Bupropion HCl [Bupropion HCl Sr] 150 mg PO AM 02/25/19 Multivitamin,Ther and Minerals [Vitamin and Minerals] 1 each PO DAILY 02/25/19 Pravastatin Sodium [Pravachol -] 20 mg PO HS 02/25/19 Quetiapine Fumarate [Seroquel] 100 mg PO HS 02/25/19 - Diagnosis (1) Alcohol dependence with uncomplicated withdrawal Status: Acute (2) Weight loss Status: Acute (3) Cocaine dependence Status: Chronic Qualifiers: Substance use status: uncomplicated Qualified Code(s): F14.20 - Cocaine dependence, uncomplicated (4) Drug-induced mood disorder Status: Chronic (5) HIV (human immunodeficiency virus infection) Status: Chronic Qualifiers: HIV symptom status: unspecified Qualified Code(s): B20 - Human immunodeficiency virus [HIV] disease (6) History of bipolar disorder Status: Chronic (7) Hypercholesterolemia Status: Chronic (8) Insomnia Status: Chronic Qualifiers: Insomnia type: unspecified Qualified Code(s): G47.00 - Insomnia, unspecified (9) Nicotine dependence Status: Chronic Qualifiers: Nicotine product type: cigarettes Substance use status: uncomplicated Qualified Code(s): F17.210 - Nicotine dependence, cigarettes, uncomplicated (10) Non-compliance Status: Chronic - AMA Did Patient Leave Against Medical Advice: No
== END 2019-03-01 10:25 | disposition home or self-care (01) | DRG 774 ==
LOC: YASAS 09:25 → Y3N 12:25
PROVIDERS: ADMIT Surgery; ATTEND Surgery
PROC: HZ2ZZZZ Detoxification Services for Substance Abuse Treatment (ICD-10-PCS; principal; 2019-02-25)
DX: F10.230 Alcohol dependence with withdrawal, uncomplicated (principal); F14.20 Cocaine dependence, uncomplicated; F17.210 Nicotine dependence, cigarettes, uncomplicated; F31.9 Bipolar disorder, unspecified; F19.24 Other psychoactive substance dependence with psychoactive substance-induced mood disorder; F32.9 Major depressive disorder, single episode, unspecified; Z21 Asymptomatic human immunodeficiency virus [HIV] infection status; B19.10 Unspecified viral hepatitis B without hepatic coma; G47.00 Insomnia, unspecified; E78.00 Pure hypercholesterolemia, unspecified; R63.4 Abnormal weight loss; Z68.27 Body mass index [BMI] 27.0-27.9, adult; Z89.021 Acquired absence of right finger(s); Z91.19 Patient's noncompliance with other medical treatment and regimen
CPT/HCPCS: 36415; 80053; 81003; 85027; 86593; 86780

== ENCOUNTER 2019-06-26 14:03 | Emergency (ER) | payer OTHER ==
[2019-06-26 14:32] VITALS: BMI 28.1
--- NOTE | 2019-06-26 15:03 | PDOC ---
History of Present Illness - General Chief Complaint: Back Pain Stated Complaint: BACK PAIN Time Seen by Provider: 06/26/19 14:08 Past History - Past Medical History Allergies/Adverse Reactions: Allergies Allergy/AdvReac Type Severity Reaction Status Date / Time No Known Allergies Allergy Verified 02/25/19 10:47 Home Medications: Ambulatory Orders Multivitamin,Ther and Minerals [Vitamin and Minerals] 1 each PO DAILY 02/25/19 Pravastatin Sodium [Pravachol -] 20 mg PO HS 02/25/19 Emtricitab/Rilpiviri/Tenof Ala [Odefsey Tablet] 1 each PO DAILY #30 tablet 04/11 Quetiapine Fumarate [Seroquel -] 100 mg PO HS #30 tablet 06/19/19 Polyethylene Glycol 3350 [Miralax (For Daily Use) -] 17 gm PO DAILY PRN #1 bottle 06/26/19 Venlafaxine HCl ER [Effexor Xr -] 75 mg PO DAILY #30 cap.er.24h 06/26/19 Anemia: No Asthma: No Cancer: No Cardiac Disorders: No CVA: No COPD: No CHF: No Dementia: No Diabetes: No GI Disorders: No Disorders: No HTN: No Hypercholesterolemia: Yes (on med) Kidney Stones: No Liver Disease: Yes (HEP B) Seizures: No Thyroid Disease: No - Surgical History Abdominal Surgery: No Appendectomy: No Cardiac Surgery: No Cholecystectomy: No Lung Surgery: No Neurologic Surgery: No Orthopedic Surgery: Yes (rt index finger amputates while cutting meat) - Reproductive History Testicular Surgery: No - Immunization History Immunization Up to Date: No - Psycho Social/Smoking Cessation Hx Smoking History: Current every day smoker Have you smoked in the past 12 months: Yes Number of Cigarettes Smoked Daily: 6 If you are a former smoker, when did you quit?: 05/21/17 Cigars Per Day: 0 Information on smoking cessation initiated: Yes 'Breaking Loose' booklet given: 02/25/19 Hx Alcohol Use: No Drug/Substance Use Hx: No Substance Use Type: Cocaine Hx Substance Use Treatment: Yes ([facility] 07/04/17 to 07/07/17) *Physical Exam - Vital Signs Last Vital Signs Temp Pulse Resp BP Pulse Ox 98.0 F 84 18 116/80 99 06/26/19 14:09 06/26/19 14:09 06/26/19 14:09 06/26/19 14:09 06/26/19 14:09 ED Treatment Course - LABORATORY CBC & Chemistry Diagram: 06/26/19 15:44 06/26/19 15:44 Medical Decision Making - Medical Decision Making 06/26/19 15:23 HPI: 54yo M hx HIV, Hep B, smoking, polysubstance abuse (clean now, denies hx of IVDU ) presents from home c/o atraumatic L flank pain sometimes radiating to LLQ x1wk , constant but stops x10min after eating, throbbing and sharp, gradual onset, progressively worsening, not improved by ibuprofen (only tried on day 1), no hx of similar sx, no hx of kidney disease or kidney stones. Pt went to [facility] on Monday and was dx with stomach ulcer but did not have any imaging done. Prescribed protonix - tried w/o improvement. Denies fever, chills, fatigue, headache, dizziness, numbness/tingling, weakness, vision changes, shortness of breath, cough, chest pain, palpitations, leg swelling, blood in stool, diarrhea , constipation, nausea, vomiting, dysuria, hematuria, confusion, recent illness , sick contacts, recent travel. PCP - Divine Lomeli ROS: Constitutional: Negative for chills, fever, fatigue, diaphoresis. HENT: Negative for sore throat, rhinorrhea, congestion. Eyes: Negative for visual disturbance. Respiratory: Negative for shortness of breath, cough, and wheezing. Cardiovascular: Negative for chest pain, palpitations, and leg swelling. Gastrointestinal: Positive for LLQ pain. Negative for blood in stool, constipation, diarrhea, nausea, and vomiting. Genitourinary: Positive for L flank/lower back pain. Negative for dysuria and hematuria. Musculoskeletal: Positive for L lower back pain. Negative for myalgias, and neck pain. Skin: Negative for rash. Neurological: Negative for light-headedness, dizziness, vertigo, syncope, weakness, numbness and headaches. Psychiatric/Behavioral: Negative for behavioral problems and confusion. PE: Gen: Alert, NAD, uncomfortable-appearing. HEENT: PERRL, EOMI, MMM, NCAT, +bump R forehead (chronic). No conjunctival pallor. Sclera are non-icteric. Poor dentition. CV: Regular rate and rhythm. No murmurs, rubs, or gallops. PULM: No resp distress. CTAB, no wheezes, rales, or rhonchi. ABD: soft, NT/ND, no rebound tenderness or guarding, no CVA tenderness. BACK: No TTP of c/t/l-spine. No step-offs or deformities. MSK: Partial amputation R index finger. 2+ pulses in all extremities. NEURO: AAOx3. PERRL. CN 2-12 intact. 5/5 strength in all extremities. Sensation to light touch intact in all extremities. No pronator drift. No dysmetria. No dysdiadochokinesia. No abnormal nystagmus. EXTREMITIES: No cyanosis. No clubbing. No edema. No calf tenderness. PSYCH: Normal mood and thought pattern. SKIN: Warm and dry. Normal capillary refill. No rashes. No jaundice. MDM: 54yo M hx HIV, Hep B, smoking, polysubstance abuse (clean now, denies hx of IVDU ) presents from home c/o atraumatic L flank pain sometimes radiating to LLQ x1wk , constant but stops x10min after eating, throbbing and sharp, gradual onset, progressively worsening, not improved by ibuprofen (only tried on day 1), no hx of similar sx, no hx of kidney disease or kidney stones. Hemodynamically stable , afebrile. Ddx: MSK, UTI/pyelo, nephrolithiasis, renal abscess, psoas abscess, splenic abscess, diverticulitis, pancreatitis, PUD. No midline TTP, neurologic deficit, IVDU, trauma or incontinence concerning for spinal abscess or cauda equina or spinal fx. Location of back pain, lack of tearing nature, and pulses equal b/l make aortic dissection of very low concern. No pulsatile mass or hemodynamic instability concerning for AAA rupture - no AAA seen on POCUS. -CBC,CMP,lipase,UA/UC -Spiral CT -IVF -Tylenol IV 06/26/19 17:22 Pt states tylenol improved pain temporarily but it has returned. Appears more comfortable. Toradol ordered for pain. CT reviewed - no e/o urolithiasis or hydronephrosis. 1.2x1cm R renal hyperdense cortical focus probably representing an incidental proteinaceous or hemorrhagic cyst. At least moderate colonic fecal retention. R anterior pelvic wall surgical clips. Chronic lower thoracic vertebral body compression fxs. Moderate b/l L5-S1 degenerative facet arthropathy. Labs reviewed. No concerning findings. 06/26/19 17:28 Pending pain improvement, will dc home with PCP/ortho/nephro/uro f/u and miralax for constipation. Return precautions given. Pt understands all dc instructions and all questions were answered. Discussed CT findings and f/u referrals. 06/26/19 18:10 Lipase WNL. Pain improved s/p toradol. D/c. Discharge - Discharge Information Problems reviewed: Yes Clinical Impression/Diagnosis: Back pain Condition: Improved Disposition: HOME - Admission No - Additional Discharge Information Prescriptions: Polyethylene Glycol 3350 [Miralax (For Daily Use) -] 17 gm PO DAILY PRN #1 bottle PRN Reason: Constipation - Follow up/Referral Referrals: Willy Hannah DO [Staff Physician] - Shon Holder MD [Staff Physician] - Shon Stevens MD [Staff Physician] - - Patient Discharge Instructions Patient Printed Discharge Instructions: DI for Flank Pain Additional Instructions: You have been seen in the Emergency Department for your left lower back pain and abdominal pain. Your CT scan and labs show no signs concerning for an emergent condition such as a kidney stone or infection. The cause of your pain is unknown but it is most likely either due to constipation or a strain or sprain of a ligament or muscle. Follow-up with your primary care doctor within 1 week. We have prescribed you a stool softener for the constipation - take as directed as needed. If you experience pain, you can take Tylenol or Ibuprofen as directed on the medication bottle, but do not exceed 3g of Ibuprofen or 4g of Tylenol a day. As discussed, you have some abnormalities found on your CT scan that will need follow-up. We have referred you to a Urologist, Orthopedic Surgeon, and Electronic Warfare Technician (kidney doctor) for further evaluation and management of these findings - make sure to call their offices and make follow-up appointments this week. Return to the ED immediately if you experience worsening pain not controlled by over the counter medications, numbness or tingling, weakness, fever, vomiting, or any other new or worsening symptom. - Post Discharge Activity
[2019-06-26] MEDS ORDERED: SODIUM CHLORIDE 0.9% 500 ML INFUS.BAG IV ONE (15:19)
[2019-06-26] MEDS ORDERED: ACETAMINOPHEN 1000 MG/100 ML VIAL (NON FORMULARY) IVPB ONE (15:19)
[2019-06-26] MEDS ORDERED: ACETAMINOPHEN INJECTION 100 ML IVPB ONE (15:37)
[2019-06-26 15:56] LABS: BASO % 0.8 % (0-2.0); EOS % 3.8 % (0-4.5); HEMATOCRIT 45.5 % (35.4-49); HEMOGLOBIN 15.1 GM/dL (11.7-16.9); LYMPH % 37.3 % (8-40); MCH 30.6 pg (25.7-33.7); MCHC 33.2 g/dl (32.0-35.9); MEAN CELL VOLUME 92.2 fl (80-96); MEAN PLT VOLUME 7.6 fl (7.5-11.1); MONO % 6.2 % (3.8-10.2); NEUT % 51.9 % (42.8-82.8); PLATELET COUNT 250 K/MM3 (134-434); RBC 4.93 M/mm3 (4.00-5.60); RDW 13.7 % (11.9-15.9); WHITE BLOOD COUNT 6.2 K/mm3 (4.0-10.0)
[2019-06-26 15:59] LABS: EPI CELLS 1.1 /HPF (0-5/HPF); HYALINE CASTS 0 /lpf (0-8); PH,URINE 7.5 (5.0-8.0); URINE APPEARANCE CLEAR; URINE BACTERIA 9.6 /hpf (NEGATIVE); URINE BILIRUBIN NEGATIVE (NEGATIVE); URINE COLOR YELLOW; URINE GLUCOSE (UA) NEGATIVE (NEGATIVE); URINE KETONE NEGATIVE (NEGATIVE); URINE LEUK ESTERASE TRACE (NEGATIVE); URINE NITRITE NEGATIVE (NEGATIVE); URINE PROTEIN NEGATIVE (NEGATIVE); URINE RBC 1 /hpf (0-4); URINE UROBILINOGEN 0.2 mg/dL (0.2-1.0); URINE WBC 5 /hpf (0-5)
[2019-06-26 16:24] LABS: BILIRUBIN,TOTAL 0.5 mg/dL (0.2-1); BLOOD UREA NITROGEN 15.6 mg/dL (7-18); CALCIUM 9.1 mg/dL (8.5-10.1); CREATININE 1.1 mg/dL (0.55-1.3); TOT PROT 8.2 g/dl (6.4-8.2)
--- NOTE | 2019-06-26 16:42 | PDOC ---
Attending Attestation - Resident Resident Name: Kiesha Luque - ED Attending Attestation I have performed the following: I have examined & evaluated the patient, The case was reviewed & discussed with the resident, I agree w/resident's findings & plan, Exceptions are as noted - HPI HPI: 06/26/19 16:40 54-year-old male with history of hypertension, HIV on [place] complains of atraumatic left-sided and left flank abdominal pain radiating to the left lower quadrant for the past several days, without associated nausea/vomiting/fever/ chills/dysuria. No history of kidney stones in the past. - Physicial Exam PE: 06/26/19 16:40 Patient is awake and alert, well-nourished, in no significant distress. Normocephalic and atraumatic PERRLA, EOMI no JVD, CTA, RRR, abdomen soft, nontender, nondistended, no CVA tenderness bilaterally, pelvis is stable, full range of motion to lower extremity's bilaterally - Medical Decision Making 06/26/19 16:42 Patient is a 54-year-old male with history of hypertension, HIV presents with atraumatic left-sided abdominal and flank pain. Differential diagnosis includes musculoskeletal pain versus nephrolithiasis versus pyelonephritis. Will obtain CBC/CMP/UA. Will obtain spiral CT of abdomen pelvis to rule out hydro-. Will reassess. Will hydrate and administer pain meds
[2019-06-26] MEDS ORDERED: KETOROLAC TROMETHAMINE 15 MG/ML VIAL IVPUSH ONE (17:27)
[2019-06-26] MEDS ORDERED: KETOROLAC TROMETHAMINE 15 MG/ML VIAL ONE (18:06)
[2019-06-26 18:30] VITALS: BP 148/85; PULSE 80; TEMP 98.7
== END 2019-06-26 18:15 | disposition home or self-care (01) ==
LOC: JER 14:03
PROC: 3E033NZ Introduction of Analgesics, Hypnotics, Sedatives into Peripheral Vein, Percutaneous Approach (ICD-10-PCS; principal; 2019-06-26)
PROC: 3E0333Z Introduction of Anti-inflammatory into Peripheral Vein, Percutaneous Approach (ICD-10-PCS; 2019-06-26)
PROC: 3E0337Z Introduction of Electrolytic and Water Balance Substance into Peripheral Vein, Percutaneous Approach (ICD-10-PCS; 2019-06-26)
DX: M54.9 Dorsalgia, unspecified (principal); Z21 Asymptomatic human immunodeficiency virus [HIV] infection status; B19.20 Unspecified viral hepatitis C without hepatic coma; F19.10 Other psychoactive substance abuse, uncomplicated; F17.210 Nicotine dependence, cigarettes, uncomplicated
CPT/HCPCS: 36415; 74176-TC; 80053; 81003; 83690; 85025; 87086; 96361; 96374; 96375; 99285-25; J0131

== ENCOUNTER 2019-07-05 23:21 | Inpatient (IN) | payer OTHER ==
[2019-07-06] MEDS ORDERED: morphine CARPU-JECT 4 MG/1 ML DISP.SYRIN IVPUSH ONE (00:07)
[2019-07-06] MEDS ORDERED: SODIUM CHLORIDE 0.9% 500 ML INFUS.BAG IV ONE (00:07)
--- NOTE | 2019-07-06 00:09 | PDOC ---
History of Present Illness - General Stated Complaint: CHEST PAIN History Source: Patient Exam Limitations: No Limitations - History of Present Illness Initial Comments: 07/06/19 00:07 Chapito Wynn is a 54M with PMH HIV, Hep B, polysubstance abuse presenting with 2 weeks of worsening LUQ pain and mediastinal mass noted on OSH CT abd. Has had this pain for 2 weeks. He first went to [facility] and diagnosed with stomach ulcer, then came to [facility] ED 06/26 for worsening pain and got CT abd showing no acute findings, lower back fracture, dispo home. Patient sees Dilcia Pedro at [facility], recommended go to ER today, was transferred by ambulance to [facility]. CT scan done of abdomen showing mediastinal mass with L pleural effusion highly concerning for malignancy with lung metastases. Was supposed to be admitted for workup but insisted he transfer to [facility], now here complaining of significant pain under his left rib. Denies recent drug use. Past History - Past Medical History Allergies/Adverse Reactions: Allergies Allergy/AdvReac Type Severity Reaction Status Date / Time No Known Allergies Allergy Verified 02/25/19 10:47 Home Medications: Ambulatory Orders Multivitamin,Ther and Minerals [Vitamin and Minerals] 1 each PO DAILY 02/25/19 Pravastatin Sodium [Pravachol -] 20 mg PO HS 02/25/19 Emtricitab/Rilpiviri/Tenof Ala [Odefsey Tablet] 1 each PO DAILY #30 tablet 04/11 Quetiapine Fumarate [Seroquel -] 100 mg PO HS #30 tablet 06/19/19 Polyethylene Glycol 3350 [Miralax (For Daily Use) -] 17 gm PO DAILY PRN #1 bottle 06/26/19 Venlafaxine HCl ER [Effexor Xr -] 75 mg PO DAILY #30 cap.er.24h 06/26/19 Anemia: No Asthma: No Cancer: No Cardiac Disorders: No CVA: No COPD: No CHF: No Dementia: No Diabetes: No GI Disorders: No Disorders: No HTN: No Hypercholesterolemia: Yes (on med) Kidney Stones: No Liver Disease: Yes (HEP B) Seizures: No Thyroid Disease: No - Surgical History Abdominal Surgery: No Appendectomy: No Cardiac Surgery: No Cholecystectomy: No Lung Surgery: No Neurologic Surgery: No Orthopedic Surgery: Yes (rt index finger amputates while cutting meat) - Reproductive History Testicular Surgery: No - Immunization History Immunization Up to Date: No - Psycho Social/Smoking Cessation Hx Smoking History: Current every day smoker Have you smoked in the past 12 months: Yes Number of Cigarettes Smoked Daily: 6 If you are a former smoker, when did you quit?: 05/21/17 Cigars Per Day: 0 'Breaking Loose' booklet given: 02/25/19 Hx Alcohol Use: No Drug/Substance Use Hx: No Substance Use Type: Cocaine Hx Substance Use Treatment: Yes ([facility] 07/04/17 to 07/07/17) Review of Systems - Review of Systems Constitutional: No: Symptoms Reported HEENTM: No: Symptoms Reported Respiratory: No: Symptoms reported Cardiac (ROS): Yes: Chest Pain (L under ribs). No: Lightheadedness, Palpitations, Syncope ABD/GI: No: Constipated, Diarrhea, Nausea, Vomiting : No: Symptoms Reported Musculoskeletal: No: Symptoms Reported Integumentary: No: Symptoms Reported Neurological: No: Symptoms reported Endocrine: No: Symptoms Reported Hematologic/Lymphatic: No: Symptoms Reported All Other Systems: Reviewed and Negative *Physical Exam - Physical Exam General Appearance: Yes: Nourished, Appropriately Dressed. No: Apparent Distress HEENT: positive: EOMI, MYLENE, Normal Voice, Symmetrical, Pharynx Normal, Hearing Grossly Normal. negative: Scleral Icterus (R), Scleral Icterus (L) Neck: positive: Trachea midline, Supple, Lymphadenopathy (R), Lymphadenopathy (L ). negative: Tender, Rigid Respiratory/Chest: positive: Lungs Clear, Normal Breath Sounds. negative: Chest Tender, Respiratory Distress, Accessory Muscle Use, Crackles, Rales, Rhonchi Cardiovascular: positive: Regular Rhythm, Regular Rate. negative: Edema, Murmur Gastrointestinal/Abdominal: positive: Normal Bowel Sounds, Tender (under L rib cage, R side normal), Flat, Soft. negative: Organomegaly, Distended, Guarding, Rebound Musculoskeletal: positive: Normal Inspection. negative: CVA Tenderness Extremity: positive: Normal Capillary Refill, Normal Inspection, Normal Range of Motion, Other (observed walking up and down ED with normal gait). negative: Tender, Calf Tenderness Integumentary: positive: Normal Color, Dry, Warm Neurologic: positive: Alert, Normal Mood/Affect, Normal Response ED Treatment Course - LABORATORY CBC & Chemistry Diagram: 07/06/19 00:32 07/06/19 00:32 Medical Decision Making - Medical Decision Making 07/06/19 00:07 Chapito Wynn is a 54M with PMH HIV on HAART, Hep B, polysubstance abuse presenting with 2 weeks of worsening LUQ pain and mediastinal mass noted on OSH CT abd. CMP CBC CP Coags Lipase ECG CXR PA/Lat CT chest to evaluate L pleural effusion and mediastinal mass. 07/06/19 01:00 ECG shows NSR with HR 95, QTc 434, no evidence of ischemic changes or repolarization changes. No notable abnormalities on labs other than elevated CK 322 which does not need intervention at this time. 07/06/19 01:30 Got CXR that shows a new mediastinal mass and a small L pleural effusion. Patient has been to CT, pending CT read. After 4mg IV morphine pain has been relieved, patient wants to eat, giving sandwich. 07/06/19 03:[address] chest shows new mediastinal mass with large LLL effusion. Signed out patient to vickie Brady to be admitted to Med-Surg under Dr. Vivas. 07/06/19 04:00 IMPRESSION: Large anterior descending mass is suspicious for neoplasm, possible lymphoma. Left pericardiac adenopathy or metastatic in nature. Moderate-sized left pleural effusion with compressive atelectasis and/or pneumonia per mild paraseptal emphysema. Discharge - Discharge Information Problems reviewed: Yes Clinical Impression/Diagnosis: Pleural effusion, Mediastinal mass HIV (human immunodeficiency virus infection) Qualifiers: HIV symptom status: asymptomatic Qualified Code(s): Z21 - Asymptomatic human immunodeficiency virus [HIV] infection status - Follow up/Referral - Patient Discharge Instructions - Post Discharge Activity
[2019-07-06] MEDS ORDERED: morphine SULFATE 4 MG/ML VIAL ONE (00:46)
[2019-07-06 00:47] LABS: BASO % 0.9 % (0-2.0); HEMATOCRIT 44.6 % (35.4-49); HEMOGLOBIN 14.7 GM/dL (11.7-16.9); LYMPH % 33.5 % (8-40); MCH 30.2 pg (25.7-33.7); MCHC 32.9 g/dl (32.0-35.9); MEAN CELL VOLUME 91.7 fl (80-96); MEAN PLT VOLUME 7.2 fl (7.5-11.1); NEUT % 52.6 % (42.8-82.8); PLATELET COUNT 272 K/MM3 (134-434); RBC 4.86 M/mm3 (4.00-5.60); RDW 13.6 % (11.9-15.9); WHITE BLOOD COUNT 6.5 K/mm3 (4.0-10.0)
[2019-07-06 00:59] LABS: INR 1.16 (0.83-1.09); PROTHROMBIN TIME (PATIENT) 13.7 SEC (9.7-13.0)
[2019-07-06 01:18] LABS: ALBUMIN 3.9 g/dl (3.4-5.0); BILIRUBIN,TOTAL 0.6 mg/dL (0.2-1); BLOOD UREA NITROGEN 13.5 mg/dL (7-18); CALCIUM 9.8 mg/dL (8.5-10.1); CREATININE 1.3 mg/dL (0.55-1.3); POTASSIUM 4.5 mmol/L (3.5-5.1); TOT PROT 8.2 g/dl (6.4-8.2)
--- NOTE | 2019-07-06 01:28 | PDOC ---
Documentation entered by Daria Plata SCRIBE, acting as scribe for Dev Lucio MD. Dev Lucio MD: This documentation has been prepared by the Boni santos Adrianna, SCRIBE, under my direction and personally reviewed by me in its entirety. I confirm that the documentation accurately reflects all work, treatment, procedures, and medical decision making performed by me. Attending Attestation - Resident Resident Name: Mars Tian - ED Attending Attestation I have performed the following: I have examined & evaluated the patient, The case was reviewed & discussed with the resident, I agree w/resident's findings & plan, Exceptions are as noted - HPI HPI: 54 y.o M, PMH of HIV, Hep B, smoking, polysubstance abuse (clean now, denies hx of IVDU), presents with abdominal pain for 2 weeks. Patient endorses progressively worsening LUQ pain. He was diagnosed with stomach ulcer 2 weeks ago at [facility]. Patient was seen by his PCP earlier today and sent to [facility] for the same complaint, found to have a mediastinal mass with left pleural effusion (concerning for malignancy with lung metastases), but insisted on coming to ER. Allergies: NKA, NKDA Surgical History: right index finger amputation Social History: Polysubstance abuse, current smoker (6 cigarettes per day) PCP: Divine Lomeli - Physicial Exam PE: 07/06/19 01:27 Patient is awake and alert, well-nourished, in moderate distress Normocephalic, atraumatic PERRLA, EOMI, no scleral icterus CTA Left rib cage tenderness at the intercostal spaces 9/10 ,midclavicular line rrr Abdomen is soft, nontender, nondistended - Medical Decision Making 07/06/19 01:27 Patient is a 54-year-old male with history of HIV on [place], hep B, polysubstance abuse, hypercholesterolemia presents to the ER with atraumatic left-sided chest wall pain radiating to the back. Patient seen and evaluated at [facility] earlier in the day where he underwent a CT of abdomen pelvis which diagnosed him with a large mediastinal mass, moderate-sized left-sided pleural effusion and several satellite lesions consistent with metastases. Patient signed out AGAINST MEDICAL ADVICE and presented to [facility] for admission. Patient is afebrile and hemodynamically stable. Chest x-ray reveals left-sided mediastinal mass with a moderate-sized left sided pleural effusion. Will obtain CT of chest. Will admit.
[2019-07-06 02:53] LABS: URINE APPEARANCE CLEAR; URINE BILIRUBIN NEGATIVE (NEGATIVE); URINE COLOR YELLOW; URINE GLUCOSE (UA) NEGATIVE (NEGATIVE); URINE KETONE TRACE (NEGATIVE)
[2019-07-06 02:54] LABS: PH,URINE 5.5 (5.0-8.0); URINE NITRITE NEGATIVE (NEGATIVE); URINE PROTEIN NEGATIVE (NEGATIVE)
[2019-07-06 02:55] LABS: EPI CELLS 6.4 /HPF (0-5/HPF); HYALINE CASTS 23.84 /lpf (0-8); URINE BACTERIA 2.1 /hpf (NEGATIVE); URINE LEUK ESTERASE 1+ (NEGATIVE); URINE RBC 1.5 /hpf (0-4); URINE WBC 24.7 /hpf (0-5)
[2019-07-06] MEDS ORDERED: ACETAMINOPHEN 325 MG TABLET (FP) PO PRN (02:56)
[2019-07-06] MEDS ORDERED: POLYETHYLENE GLYCOL 3350 119 GM BTL PO ONE (03:10)
[2019-07-06] MEDS ORDERED: oxyCODONE HCL 5 MG TABLET PO ONE (03:36)
--- NOTE | 2019-07-06 03:38 | PN ---
Teaching Attending Note Name of Resident: Abimbola Quan ATTENDING PHYSICIAN STATEMENT I saw and evaluated the patient. I reviewed the resident's note and discussed the case with the resident. I agree with the resident's findings and plan as documented. SUBJECTIVE: Patient is a 54 year old man with a PMH of HIV disease on HAART, Tobacco use, Hepatitis B infection, Polysubstance abuse and Hypercholesterolemia presents to the ER with atraumatic left-sided chest wall pain radiating to the back. Patient seen and evaluated at [facility] earlier in the day where he underwent a CT of abdomen pelvis which diagnosed him with a large mediastinal mass, moderate-sized left-sided pleural effusion and several satellite lesions consistent with metastases. Patient signed out AGAINST MEDICAL ADVICE and presented to [facility] for admission. Patient denies fever, chills, nausea, vomiting, abdominal pain, diarrhea, dysuria or frequency. OBJECTIVE: Alert Vital Signs Period Temp Pulse Resp BP Sys/Abel Pulse Ox Last 24 Hr 98 F 91 20 144/99 100 HEENT: No Jaundice, eye redness or discharge, PERRLA, EOMI. Normocephalic, atraumatic. External ears are normal and hearing is grossly intact. No nasal discharge. Neck: Supple, nontender. No palpable adenopathy or thyromegaly. No JVD Chest: Good effort. Clear to auscultation. Left lateral wall tenderness. Heart: Regular. No S3, rub or murmur Abdomen: Not distended, soft, nontender and no HSM. No rebound or guarding. Normal bowel sounds. Ext: Peripheral pulses intact. No leg edema. Right index finger amputation. Skin: Warm and dry. No petechiae, rash or ecchymosis. Neuro: Alert. Oriented x3. CN 2-12 grossly intact. Sensation grossly intact in all four extremities and DTR are symmetric. Psych: Appropriate mood and affect. Good insight. Current Medications Generic Name Dose Route Start Last Admin Trade Name Freq PRN Reason Stop Dose Admin Acetaminophen 650 mg 07/06/19 02:56 Tylenol - PO Q6H PRN PAIN LEVEL 6-10 Enoxaparin Sodium 40 mg 07/06/19 10:00 Lovenox - SQ DAILY ENOC Oxycodone HCl 5 mg 07/06/19 03:36 Roxicodone - PO 07/06/19 03:37 ONCE ONE Quetiapine Fumarate 100 mg 07/06/19 22:00 Seroquel - PO HS [facility] Home Medications Medication Instructions Recorded Multivitamin,Ther and Minerals 1 each PO DAILY 02/25/19 [Vitamin and Minerals] Pravastatin Sodium [Pravachol -] 20 mg PO HS 02/25/19 Emtricitab/Rilpiviri/Tenof Ala 1 each PO DAILY #30 tablet 04/11/19 [Odefsey Tablet] Quetiapine Fumarate [Seroquel -] 100 mg PO HS #30 tablet 06/19/19 Polyethylene Glycol 3350 [Miralax 17 gm PO DAILY PRN #1 bottle 06/26/19 (For Daily Use) -] Venlafaxine HCl ER [Effexor Xr -] 75 mg PO DAILY #30 cap.er.24h 06/26/19 Abnormal Lab Results 07/06/19 07/06/19 07/06/19 00:32 00:32 00:32 MPV Eosinophils % PT with INR 13.70 H INR 1.16 H PTT (Actin FS) 42.6 H AST 43 H Creatine Kinase Lipase 61 L Ur Specific [place] Urine Ketones Ur Leukocyte Esterase 07/06/19 07/06/19 07/06/19 00:32 00:32 02:30 MPV 7.2 L Eosinophils % 5.0 H PT with INR INR PTT (Actin FS) AST Creatine Kinase 322 H Lipase Ur Specific [place] 1.069 H Urine Ketones Trace H Ur Leukocyte Esterase 1+ H ASSESSMENT AND PLAN: 1. Mediastinal mass/Pleural effusion - Chest X-ray reveals left-sided mediastinal mass with a moderate-sized left sided pleural effusion. Preliminary reading of the CT scan also shows the same findings. Lymphoma or other HIV- associated malignancy are likely culprits. Will treat left lateral wall chest pain with lidocaine patch, long-acting oxycodone and then IV morphine for breakthrough pain. Will consult Oncology and ID, and get diagnostic thoracentesis. Get CD4 count and viral load. Will continue comprehensive care for all of patients comorbid conditions including HAART. 2. Tobacco Use Counseled on risks associated with tobacco use. We will provide patient all the necessary assistance to facilitate smoking cessation and prescribe Nicotine patch. 3. Morbid Obesity Counseled on the risks associated with obesity. Will provide patient all the necessary assistance, counseling and positive reinforcement to facilitate weight loss. Consult supervisor phosphorus processing. 4. Polysubstance abuse - Continue to monitor for drug withdrawal. Implement [facility] alcohol withdrawal protocol. Implement seizure, fall and aspiration precautions. Treat with thiamine and folic acid and monitor electrolytes (Ca,Mg,K,P). Counseled patient about abstaining from alcohol and illicit drug use. Will consult diagnostic sales specialist and refer to alcohol/drug detox upon discharge. 5. DVT prophylaxis - Lovenox 40 mg SQ q 12 hours. 6. Advance directives - Full code
[2019-07-06] MEDS ORDERED: LIDOCAINE 5% TOPICAL PATCH TP ONE (04:00)
[2019-07-06] MEDS ORDERED: MORPHINE SULFATE 2 MG/ML VIAL IVPUSH PRN (04:01)
--- NOTE | 2019-07-06 04:09 | HP ---
CHIEF COMPLAINT: left rib pain PCP: [facility] HISTORY OF PRESENT ILLNESS: Patient is a 54 y/o male with a history of HIV, HEB B, polysubstance abuse who presents or left rib pain. Patient reports this pain began 2 weeks ago and has been constant with episodes of worsening pain. Patient reports he has lost 6 pounds in two weeks and the pain has woken him from sleep. patient presented to [facility] for the pain and had imaging done that showed a mediastinal mass. Patient left [facility] to follow up with his care here. He takes his medications regularly and reports his viral numbers are all " good". Patient denies nausea, vomiting, dizziness, cough, headache, fever, or chills. Denies any sick contacts ER course was notable for: (1)CT: mediastinal mass (2) (3) Recent Travel: PAST MEDICAL HISTORY: HIV, HEB B, polysubstance abuse PAST SURGICAL HISTORY: R finger amputation, hernia repair Social History: Smokin cigarettes a day Alcohol: last drink 3 months ago Drugs: last used cocaine 3 months ago Allergies No Known Allergies Allergy (Verified 02/25/19 10:47) HOME MEDICATIONS: Home Medications Medication Instructions Recorded Multivitamin,Ther and Minerals 1 each PO DAILY 02/25/19 [Vitamin and Minerals] Pravastatin Sodium [Pravachol -] 20 mg PO HS 02/25/19 Emtricitab/Rilpiviri/Tenof Ala 1 each PO DAILY #30 tablet 04/11/19 [Odefsey Tablet] Quetiapine Fumarate [Seroquel -] 100 mg PO HS #30 tablet 06/19/19 Polyethylene Glycol 3350 [Miralax 17 gm PO DAILY PRN #1 bottle 06/26/19 (For Daily Use) -] Venlafaxine HCl ER [Effexor Xr -] 75 mg PO DAILY #30 cap.er.24h 06/26/19 REVIEW OF SYSTEMS CONSTITUTIONAL: Absent: fever, chills, diaphoresis, generalized weakness, malaise, loss of appetite, weight change HEENT: Absent: rhinorrhea, nasal congestion, throat pain, throat swelling, difficulty swallowing, mouth swelling, ear pain, eye pain, visual changes CARDIOVASCULAR: Absent: chest pain, syncope, palpitations, irregular heart rate, lightheadedness , peripheral edema RESPIRATORY: Absent: cough, shortness of breath, dyspnea with exertion, orthopnea, wheezing, stridor, hemoptysis GASTROINTESTINAL: Absent: abdominal pain, abdominal distension, nausea, vomiting, diarrhea, constipation, melena, hematochezia GENITOURINARY: Absent: dysuria, frequency, urgency, hesitancy, hematuria, flank pain, genital pain MUSCULOSKELETAL: rib pain Absent: myalgia, arthralgia, joint swelling, back pain, neck pain SKIN: Absent: rash, itching, pallor HEMATOLOGIC/IMMUNOLOGIC: Absent: easy bleeding, easy bruising, lymphadenopathy, frequent infections ENDOCRINE: Absent: unexplained weight gain, unexplained weight loss, heat intolerance, cold intolerance NEUROLOGIC: Absent: headache, focal weakness or paresthesias, dizziness, unsteady gait, seizure, mental status changes, bladder or bowel incontinence PSYCHIATRIC: Absent: anxiety, depression, suicidal or homicidal ideation, hallucinations. PHYSICAL EXAMINATION Vital Signs - 24 hr 07/06/19 00:05 Temperature 98 F Pulse Rate 91 H Respiratory 20 Rate Blood Pressure 144/99 O2 Sat by Pulse 100 Oximetry (%) GENERAL: Awake, alert, and fully oriented, in no acute distress. HEAD: hard mass on r temporal EYES: Pupils equal, round and reactive to light, extraocular movements intact, EARS, NOSE, THROAT: Moist mucous membranes. Nothing seen in pharynx LUNGS: Breath sounds equal, clear to auscultation bilaterally. No wheezes, and no crackles. No accessory muscle use. HEART: Regular rate and rhythm, normal S1 and S2 without murmur, rub or gallop. Chest: tenderness to palpation over left sided lower lungs ABDOMEN: Soft, nontender, not distended, normoactive bowel sounds, no guarding, no rebound, no masses. LOWER EXTREMITIES: 2+ pulses, warm, well-perfused. No calf tenderness. No peripheral edema. NEUROLOGICAL: Normal gait. PSYCHIATRIC: Cooperative. Good eye contact. Appropriate mood and affect. SKIN: Warm, dry, normal turgor, no rashes or lesions noted, normal capillary refill. CBC, BMP 07/06/19 00:32 07/06/19 00:32 ASSESSMENT/PLAN: Patient is a 54 y/o male with a history of HIV, HEB B, polysubstance abuse who presents or left rib pain. #New Mediastinal mass with left sided pleural effusion - r/o lymphoma in setting of patient with HIV, r/o metastatic disease to bone , r/o fracture of ribs, denies trauma - consulted Dr. Hernández - consider IR consult, patient will need pleural effusion tapped - pleural effusion studies to help determine source - bone scan to look at ribs and r/o metastasis - oxy 5 prn for pain, morphine 2 for break through pain - lidocaine patch #HIV - continue home medications #polysubstance abuse - patient denies any use for 3 months DVT ppx - Lovenox 40 sq daily FEN - Regular diet Dispo: monitor on med surg Visit type - Emergency Visit Emergency Visit: Yes ED Registration Date: 07/06/19 Care time: The patient presented to the Emergency Department on the above date and was hospitalized for further evaluation of their emergent condition. - New Patient This patient is new to me today: Yes Date on this admission: 07/06/19 - Critical Care Critical Care patient: No ATTENDING PHYSICIAN STATEMENT I saw and evaluated the patient. I reviewed the resident's note and discussed the case with the resident. I agree with the resident's findings and plan as documented. SUBJECTIVE: OBJECTIVE: ASSESSMENT AND PLAN:
[2019-07-06 05:28] LABS: BASO % 1.1 % (0-2.0); EOS % 6.1 % (0-4.5); HEMATOCRIT 39.4 % (35.4-49); HEMOGLOBIN 13.6 GM/dL (11.7-16.9); LYMPH % 31.8 % (8-40); MCH 31.2 pg (25.7-33.7); MCHC 34.4 g/dl (32.0-35.9); MEAN CELL VOLUME 90.6 fl (80-96); MEAN PLT VOLUME 7.4 fl (7.5-11.1); MONO % 10.1 % (3.8-10.2); NEUT % 50.9 % (42.8-82.8); PLATELET COUNT 266 K/MM3 (134-434); RBC 4.35 M/mm3 (4.00-5.60); RDW 13.5 % (11.9-15.9); WHITE BLOOD COUNT 6.1 K/mm3 (4.0-10.0)
[2019-07-06 05:52] LABS: ALBUMIN 3.5 g/dl (3.4-5.0); BILIRUBIN,TOTAL 0.4 mg/dL (0.2-1); BLOOD UREA NITROGEN 15.4 mg/dL (7-18); CALCIUM 8.7 mg/dL (8.5-10.1); CREATININE 1.3 mg/dL (0.55-1.3); MAGNESIUM 2.1 mg/dL (1.8-2.4); PHOSPHOROUS 3.6 mg/dL (2.5-4.9); POTASSIUM 4.1 mmol/L (3.5-5.1); TOT PROT 7.4 g/dl (6.4-8.2)
[2019-07-06 08:13] VITALS: BMI 29.3
[2019-07-06] MEDS ORDERED: PT OWN MED DRAWER 7, Y5N ONE ×3 (09:57→11:44)
[2019-07-06] MEDS: ENOXAPARIN NA (PORCINE) 40 MG/0.4 ML DISP.SYRIN SQ SCH (10:23)
[2019-07-06] MEDS: EMTRICITAB/RILPIVIRI/TENOF ALA (ODEFSEY) TABLET PO SCH (11:46)
[2019-07-06] MEDS: MORPHINE SULFATE 2 MG/ML VIAL IVPUSH PRN ×3 (12:16→20:19)
--- NOTE | 2019-07-06 12:46 | PN ---
Physical Exam: SUBJECTIVE: Patient seen and examined no fever or chills his pain is better OBJECTIVE: Vital Signs Period Temp Pulse Resp BP Sys/Abel Pulse Ox Last 24 Hr 97.6 F-98 F 73-91 18-20 129-149/80-99 97-100 GENERAL: The patient is awake, alert, and fully oriented, in no acute distress. HEAD: Normal with no signs of trauma. EYES: PERRL, extraocular movements intact, sclera anicteric, conjunctiva clear. No ptosis. ENT: Ears normal, nares patent, oropharynx clear without exudates, moist mucous membranes. NECK: Trachea midline, full range of motion, supple. LUNGS: Breath sounds equal, clear to auscultation bilaterally, no wheezes, no crackles, no accessory muscle use. HEART: Regular rate and rhythm, S1, S2 without murmur, rub or gallop. ABDOMEN: Soft, nontender, nondistended, normoactive bowel sounds, no guarding, no rebound, no hepatosplenomegaly, no masses. EXTREMITIES: 2+ pulses, warm, well-perfused, no edema. NEUROLOGICAL: Cranial nerves II through XII grossly intact. Normal speech, gait not observed. PSYCH: Normal mood, normal affect. SKIN: Warm, dry, normal turgor, no rashes or lesions noted Laboratory Results - last 24 hr 07/06/19 07/06/19 07/06/19 00:32 00:32 00:32 WBC RBC Hgb Hct MCV MCH MCHC RDW Plt Count MPV Absolute Neuts (auto) Neutrophils % Lymphocytes % Monocytes % Eosinophils % Basophils % Nucleated RBC % PT with INR 13.70 H INR 1.16 H PTT (Actin FS) 42.6 H Sodium 139 Potassium 4.5 Chloride 102 Carbon Dioxide 29 Anion Gap 8 BUN 13.5 Creatinine 1.3 Est GFR (CKD-EPI)AfAm 71.19 Est GFR (CKD-EPI)NonAf 61.43 Random Glucose 87 Calcium 9.8 Phosphorus Magnesium 2.0 Total Bilirubin 0.6 AST 43 H ALT 39 Alkaline Phosphatase 91 Creatine Kinase Creatine Kinase Index CK-MB (CK-2) Troponin I Total Protein 8.2 Albumin 3.9 Lipase 61 L Urine Color Urine Appearance Urine pH Ur Specific [place] Urine Protein Urine Glucose (UA) Urine Ketones Urine Blood Urine Nitrite Urine Bilirubin Urine Urobilinogen Ur Leukocyte Esterase Urine WBC (Auto) Urine RBC (Auto) Urine Casts (Auto) U Epithel Cells (Auto) Urine Bacteria (Auto) 07/06/19 07/06/19 07/06/19 00:32 00:32 02:30 WBC 6.5 RBC 4.86 Hgb 14.7 Hct 44.6 MCV 91.7 MCH 30.2 MCHC 32.9 RDW 13.6 Plt Count 272 MPV 7.2 L Absolute Neuts (auto) 3.4 Neutrophils % 52.6 Lymphocytes % 33.5 Monocytes % 8.0 Eosinophils % 5.0 H Basophils % 0.9 Nucleated RBC % 0 PT with INR INR PTT (Actin FS) Sodium Potassium Chloride Carbon Dioxide Anion Gap BUN Creatinine Est GFR (CKD-EPI)AfAm Est GFR (CKD-EPI)NonAf Random Glucose Calcium Phosphorus Magnesium Total Bilirubin AST ALT Alkaline Phosphatase Creatine Kinase 322 H Creatine Kinase Index 0.8 CK-MB (CK-2) 2.6 Troponin I < 0.02 Total Protein Albumin Lipase Urine Color Yellow Urine Appearance Clear Urine pH 5.5 D Ur Specific [place] 1.069 H Urine Protein Negative Urine Glucose (UA) Negative Urine Ketones Trace H Urine Blood Negative Urine Nitrite Negative Urine Bilirubin Negative Urine Urobilinogen 1.0 Ur Leukocyte Esterase 1+ H Urine WBC (Auto) 24.7 Urine RBC (Auto) 1.5 Urine Casts (Auto) 23.84 U Epithel Cells (Auto) 6.4 Urine Bacteria (Auto) 2.1 07/06/19 07/06/19 05:12 05:12 WBC 6.1 RBC 4.35 Hgb 13.6 Hct 39.4 MCV 90.6 MCH 31.2 MCHC 34.4 RDW 13.5 Plt Count 266 MPV 7.4 L Absolute Neuts (auto) 3.1 Neutrophils % 50.9 Lymphocytes % 31.8 Monocytes % 10.1 Eosinophils % 6.1 H Basophils % 1.1 Nucleated RBC % 0 PT with INR INR PTT (Actin FS) Sodium 137 Potassium 4.1 Chloride 105 Carbon Dioxide 26 Anion Gap 6 L BUN 15.4 Creatinine 1.3 Est GFR (CKD-EPI)AfAm 71.19 Est GFR (CKD-EPI)NonAf 61.43 Random Glucose 93 Calcium 8.7 Phosphorus 3.6 Magnesium 2.1 Total Bilirubin 0.4 AST 37 ALT 35 Alkaline Phosphatase 87 Creatine Kinase Creatine Kinase Index CK-MB (CK-2) Troponin I Total Protein 7.4 Albumin 3.5 Lipase Urine Color Urine Appearance Urine pH Ur Specific [place] Urine Protein Urine Glucose (UA) Urine Ketones Urine Blood Urine Nitrite Urine Bilirubin Urine Urobilinogen Ur Leukocyte Esterase Urine WBC (Auto) Urine RBC (Auto) Urine Casts (Auto) U Epithel Cells (Auto) Urine Bacteria (Auto) Active Medications Generic Name Dose Route Start Last Admin Trade Name Freq PRN Reason Stop Dose Admin Acetaminophen 650 mg 07/06/19 02:56 Tylenol - PO Q6H PRN PAIN LEVEL 6-10 Enoxaparin Sodium 40 mg 07/06/19 10:00 07/06/19 10:23 Lovenox - SQ 40 mg DAILY ENOC Administration Miscellaneous 1 each 07/06/19 16:00 Lidoderm Patch Removal MC 07/06/19 16:01 DAILY@1600 ONE Morphine Sulfate 4 mg 07/06/19 11:57 07/06/19 12:16 Morphine Sulfate IVPUSH 4 mg Q4H PRN Administration PAIN LEVEL 7 - 10 Oxycodone HCl 5 mg 07/06/19 04:00 Roxicodone - PO Q6H PRN PAIN LEVEL 4 - 6 Quetiapine Fumarate 100 mg 07/06/19 22:00 Seroquel - PO HS ENOC ASSESSMENT/PLAN: Patient is a 54 y/o male with a history of HIV, HEB B, polysubstance abuse who presents or left rib pain. #New Mediastinal mass with left sided pleural effusion - r/o lymphoma in setting of patient with HIV, r/o metastatic disease to bone , r/o fracture of ribs, denies trauma - consulted Dr. Hernández - consider IR consult, patient will need pleural effusion tapped - pleural effusion studies to help determine source - bone scan to look at ribs and r/o metastasis - oxy 5 prn for pain, morphine 2 for break through pain - lidocaine patch -CALLED PULMONARY CONSULT. #HIV - continue home medications #polysubstance abuse - patient denies any use for 3 months DVT ppx - Lovenox 40 sq daily FEN - Regular diet Visit type - Emergency Visit Emergency Visit: Yes ED Registration Date: 07/06/19 Care time: The patient presented to the Emergency Department on the above date and was hospitalized for further evaluation of their emergent condition. - New Patient This patient is new to me today: Yes Date on this admission: 07/06/19 - Critical Care Critical Care patient: No - Discharge Referral Referred to [facility] No
--- NOTE | 2019-07-06 14:46 | EKG ---
Test Reason : Blood Pressure : / mmHG Vent. Rate : 095 BPM Atrial Rate : 095 BPM P-R Int : 168 ms QRS Dur : 098 ms QT Int : 346 ms P-R-T Axes : 049 068 074 degrees QTc Int : 434 ms NORMAL SINUS RHYTHM CANNOT RULE OUT ANTERIOR INFARCT , AGE UNDETERMINED ABNORMAL ECG WHEN COMPARED WITH ECG OF 04-JUL-2017 04:01, NO SIGNIFICANT CHANGE WAS FOUND Confirmed by AIDA POOL, SHAHID ([id number]) on 07/06/2019 2:46:11 PM Referred By: Confirmed By:SHAHID PARRA MD
[2019-07-06] MEDS ORDERED: LIDOCAINE PATCH REMOVAL MC ONE (16:00)
--- NOTE | 2019-07-06 18:40 | CONSULT ---
Consult Consult Specialty:: Hematology Referred by:: Medicine Reason for Consultation:: Mediastinal mass - History of Present Illness Chief Complaint: Patient with several days history LUQ/rib pain, presented here and at [facility], with CT scan at [facility] location revealing a large anterior mediastinal mass. History of Present Illness: History as above. Denies constitutional symptoms. Claims he was unaware of mass until this weekend. Reports no local symptoms. HIV, managed by his PCP in the city, apparently well-controlled. - History Source History Provided By: Patient, Medical Record Limitations to Obtaining History: No Limitations - Alcohol/Substance Use Hx Alcohol Use: No - Smoking History Smoking history: Current every day smoker Have you smoked in the past 12 months: Yes Aproximately how many cigarettes per day: 6 If you are a former smoker, when did you quit?: 05/21/17 Home Medications - Allergies Allergies/Adverse Reactions: Allergies Allergy/AdvReac Type Severity Reaction Status Date / Time No Known Allergies Allergy Verified 02/25/19 10:47 - Home Medications Home Medications: Ambulatory Orders Multivitamin,Ther and Minerals [Vitamin and Minerals] 1 each PO DAILY 02/25/19 Pravastatin Sodium [Pravachol -] 20 mg PO HS 02/25/19 Emtricitab/Rilpiviri/Tenof Ala [Odefsey Tablet] 1 each PO DAILY #30 tablet 04/11 Quetiapine Fumarate [Seroquel -] 100 mg PO HS #30 tablet 06/19/19 Polyethylene Glycol 3350 [Miralax (For Daily Use) -] 17 gm PO DAILY PRN #1 bottle 06/26/19 Venlafaxine HCl ER [Effexor Xr -] 75 mg PO DAILY #30 cap.er.24h 06/26/19 Review of Systems - Review of Systems Constitutional: denies: Chills, Diaphoresis, Fever, Unintentional Wgt. Loss Eyes: denies: No Symptoms HENT: denies: Throat Pain Neck: denies: Decreased ROM, Pain on Movement, Stiffness, Swollen Glands Cardiovascular: denies: Chest Pain, Edema, Shortness of Breath Respiratory: denies: Cough, Exercise Intolerance, Orthopnea Gastrointestinal: reports: Abdominal Pain, Other (As described) Genitourinary: denies: Dysuria, Flank Pain Musculoskeletal: denies: Back Pain, Extremity Pain Neurological: denies: Confusion, Dizziness, Headache, Weakness Hematology/Lymphatic: denies: Easily Bruised, Excessive Bleeding, Swollen Glands Physical Exam Vital Signs: Vital Signs Temperature 98.5 F 07/06/19 17:05 Pulse Rate 78 07/06/19 17:05 Respiratory Rate 20 07/06/19 17:05 Blood Pressure 144/99 07/06/19 17:05 O2 Sat by Pulse Oximetry (%) 97 07/06/19 14:23 Constitutional: Yes: Well Nourished, No Distress, Calm Eyes: Yes: Conjunctiva Clear HENT: Yes: Atraumatic, Normocephalic Neck: Yes: Trachea Midline. No: Decreased ROM, Lymphadenopathy, Thyromegaly Cardiovascular: Yes: Regular Rate and Rhythm, S1, S2. No: Gallop, Murmur Respiratory: Yes: Regular, CTA Bilaterally Gastrointestinal: Yes: Normal Bowel Sounds, Soft, Other (Reports some tenderness anterior aspect lower rib L side - not convincing). No: Hepatomegaly , Palpable Mass, Splenomegaly Musculoskeletal: No: Joint Swelling, Muscle Weakness Edema: No Neurological: Yes: Alert, Oriented, Cran Nerves II-XII Intact. No: Confusion ...Motor Strength: WNL Psychiatric: Yes: Alert, Oriented Labs: CBC, BMP 07/06/19 05:12 07/06/19 05:12 Assessment/Plan HIV positive individual, co-infected Hepatitis B, controlled on appropriate anti -viral medication, with incidentally noted anterior mediastinal mass and L sided pleural effusion, suspicious for lymphoma. No B symptoms. Laboratory workup unremarkable. Requires tissue diagnosis - IR, for biopsy. Will follow. Unclear what's accounting for his L-sided pain - possibly related to effusion, but mechanism unclear. History of substance abuse noted.
[2019-07-06] MEDS ORDERED: ACETAMINOPHEN 1000 MG/100 ML VIAL (NON FORMULARY) IVPB ONE (21:06)
[2019-07-06] MEDS: QUEtiapine FUMARATE 100 MG TABLET (FP) PO SCH (21:16)
[2019-07-06] MEDS ORDERED: MORPHINE SULFATE 2 MG/ML VIAL IVPUSH ONE (22:50)
[2019-07-07] MEDS: MORPHINE SULFATE 2 MG/ML VIAL IVPUSH PRN ×3 (03:02→13:45)
[2019-07-07] MEDS ORDERED: PT OWN MED DRAWER 7, Y5N ONE (09:28)
[2019-07-07] MEDS: ENOXAPARIN NA (PORCINE) 40 MG/0.4 ML DISP.SYRIN SQ SCH (09:30)
[2019-07-07] MEDS: EMTRICITAB/RILPIVIRI/TENOF ALA (ODEFSEY) TABLET PO SCH (09:31)
--- NOTE | 2019-07-07 11:34 | CON.PULM ---
Consult Consult Specialty:: PULMONARY Referred by:: Dr Lutz Reason for Consultation:: mediastinal mass - History of Present Illness Chief Complaint: chest pain History of Present Illness: 54yo male with h/o HIV, polysubstance abuse who was admitted with left sided rib pain. Denies shortness of breath, cough or wheezing. No fevers, chills or sweats. Does endorse a 6lb weight loss in the past week. Found to have an anterior mediastinal mass on CT chest as well as a left sided pleural effusion. Reports father had pancreatic cancer and mother with breast ca. He is a long time smoker. Reports compliance with his antiretrovirals. - History Source History Provided By: Patient, Medical Record Limitations to Obtaining History: No Limitations - Alcohol/Substance Use Hx Alcohol Use: No - Smoking History Smoking history: Current every day smoker Have you smoked in the past 12 months: Yes Aproximately how many cigarettes per day: 6 If you are a former smoker, when did you quit?: 05/21/17 Home Medications - Allergies Allergies/Adverse Reactions: Allergies Allergy/AdvReac Type Severity Reaction Status Date / Time No Known Allergies Allergy Verified 02/25/19 10:47 - Home Medications Home Medications: Ambulatory Orders Multivitamin,Ther and Minerals [Vitamin and Minerals] 1 each PO DAILY 02/25/19 Pravastatin Sodium [Pravachol -] 20 mg PO HS 02/25/19 Emtricitab/Rilpiviri/Tenof Ala [Odefsey Tablet] 1 each PO DAILY #30 tablet 04/11 Quetiapine Fumarate [Seroquel -] 100 mg PO HS #30 tablet 06/19/19 Polyethylene Glycol 3350 [Miralax (For Daily Use) -] 17 gm PO DAILY PRN #1 bottle 06/26/19 Venlafaxine HCl ER [Effexor Xr -] 75 mg PO DAILY #30 cap.er.24h 06/26/19 Review of Systems - Review of Systems Constitutional: reports: Unintentional Wgt. Loss, Weakness. denies: Chills, Fever Eyes: denies: Recent Change in Vision HENT: denies: Nasal Congestion, Throat Pain Neck: denies: Stiffness, Tenderness Cardiovascular: reports: Chest Pain. denies: Edema, Shortness of Breath Respiratory: denies: Cough, Hemoptysis, Wheezing Gastrointestinal: denies: Abdominal Pain, Nausea, Vomiting Genitourinary: denies: Dysuria, Hematuria Neurological: denies: Dizziness, Headache Endocrine: reports: Unexplained Weight Loss Physical Exam Vital Sings: Vital Signs Temperature 98.3 F 07/07/19 06:18 Pulse Rate 86 07/07/19 06:18 Respiratory Rate 20 07/07/19 09:00 Blood Pressure 125/85 07/07/19 06:18 O2 Sat by Pulse Oximetry (%) 98 07/07/19 09:00 Constitutional: Yes: Calm Eyes: Yes: Conjunctiva Clear, EOM Intact HENT: Yes: Atraumatic, Normocephalic Neck: Yes: Supple, Trachea Midline Cardiovascular: Yes: Regular Rate and Rhythm Respiratory: Yes: Diminished (decreased breath sounds at the bases) ...Clubbing: No Gastrointestinal: Yes: Normal Bowel Sounds, Soft. No: Tenderness Edema: No Neurological: Yes: Alert, Oriented Labs: CBC, BMP 07/06/19 05:12 07/06/19 05:12 Imaging - Results Chest X-ray: Report Reviewed, Image Reviewed Cat Scan: Report Reviewed, Image Reviewed (anterior mediastinal mass, left effusion) Problem List - Problems (1) HIV (human immunodeficiency virus infection) Code(s): B20 - HUMAN IMMUNODEFICIENCY VIRUS [HIV] DISEASE Qualifiers: HIV symptom status: asymptomatic Qualified Code(s): Z21 - Asymptomatic human immunodeficiency virus [HIV] infection status (2) Mediastinal mass Code(s): J98.59 - OTHER DISEASES OF MEDIASTINUM, NOT ELSEWHERE CLASSIFIED (3) Pleural effusion Code(s): J90 - PLEURAL EFFUSION, NOT ELSEWHERE CLASSIFIED Assessment/Plan Anterior Mediastinal Mass Left Pleural Effusion HIV Smoker Polysubstance Abuse - will need CT guided biopsy of mediastinal mass - agree with bone scan - may need diagnostic left thoracentesis pending above biopsy - smoking cessation discussed - pain control - DVT prophylaxis Thank you for this consult Kishore Mello MD
--- NOTE | 2019-07-07 12:25 | PN ---
Physical Exam: SUBJECTIVE: Patient seen and examined No new c/o and no fever or chills still have pains in his chest and current dose of morphine is not helping seen by pulmonary and recommended the same OBJECTIVE: Vital Signs Period Temp Pulse Resp BP Sys/Abel Pulse Ox Last 24 Hr 98.3 F-98.6 F 78-89 18-20 125-146/85-107 97-99 GENERAL: The patient is awake, alert, and fully oriented, in no acute distress. HEAD: Normal with no signs of trauma. EYES: PERRL, extraocular movements intact, sclera anicteric, conjunctiva clear. No ptosis. ENT: Ears normal, nares patent, oropharynx clear without exudates, moist mucous membranes. NECK: Trachea midline, full range of motion, supple. LUNGS: Breath sounds equal, clear to auscultation bilaterally, no wheezes, no crackles, no accessory muscle use. HEART: Regular rate and rhythm, S1, S2 without murmur, rub or gallop. ABDOMEN: Soft, nontender, nondistended, normoactive bowel sounds, no guarding, no rebound, no hepatosplenomegaly, no masses. EXTREMITIES: 2+ pulses, warm, well-perfused, no edema. NEUROLOGICAL: Cranial nerves II through XII grossly intact. Normal speech, gait not observed. Active Medications Generic Name Dose Route Start Last Admin Trade Name Freq PRN Reason Stop Dose Admin Acetaminophen 650 mg 07/06/19 02:56 Tylenol - PO Q6H PRN PAIN LEVEL 6-10 Enoxaparin Sodium 40 mg 07/06/19 10:00 07/07/19 09:30 Lovenox - SQ 40 mg DAILY ENOC Administration Morphine Sulfate 4 mg 07/06/19 11:57 07/07/19 09:31 Morphine Sulfate IVPUSH 4 mg Q4H PRN Administration PAIN LEVEL 7 - 10 Oxycodone HCl 5 mg 07/06/19 04:00 Roxicodone - PO Q6H PRN PAIN LEVEL 4 - 6 Quetiapine Fumarate 100 mg 07/06/19 22:00 07/06/19 21:16 Seroquel - PO 100 mg HS ENOC Administration ASSESSMENT/PLAN: Patient is a 54 y/o male with a history of HIV, HEB B, polysubstance abuse who presents or left rib pain. #New Mediastinal mass with left sided pleural effusion - r/o lymphoma in setting of patient with HIV, r/o metastatic disease to bone , r/o fracture of ribs, denies trauma - consulted Dr. Hernández - consider IR consult ordered - patient will need pleural effusion tapped - pleural effusion studies to help determine source - bone scan to look at ribs and r/o metastasis - oxy 5 prn for pain, morphine 2 for break through pain - lidocaine patch #HIV - continue home medications #polysubstance abuse - patient denies any use for 3 months DVT ppx - Lovenox 40 sq daily FEN - Regular diet Visit type - Emergency Visit Emergency Visit: Yes ED Registration Date: 07/06/19 Care time: The patient presented to the Emergency Department on the above date and was hospitalized for further evaluation of their emergent condition. - New Patient This patient is new to me today: No - Critical Care Critical Care patient: No - Discharge Referral Referred to [facility] No
[2019-07-07] MEDS ORDERED: ACETAMINOPHEN 325 MG TABLET (FP) PO ONE (16:00)
[2019-07-07] MEDS ORDERED: oxyCODONE HCL 5 MG TABLET PO ONE (16:00)
[2019-07-07] MEDS: QUEtiapine FUMARATE 100 MG TABLET (FP) PO SCH (21:11)
[2019-07-07] MEDS: oxyCODONE HCL 5 MG TABLET PO PRN (21:11)
[2019-07-08] MEDS ORDERED: oxyCODONE HCL 5 MG TABLET PO ONE (02:35)
[2019-07-08] MEDS ORDERED: LIDOCAINE 5% TOPICAL PATCH TP ONE (03:00)
[2019-07-08] MEDS: oxyCODONE HCL 5 MG TABLET PO PRN ×2 (08:06→21:40)
[2019-07-08] MEDS: EMTRICITAB/RILPIVIRI/TENOF ALA (ODEFSEY) TABLET PO SCH (09:31)
--- NOTE | 2019-07-08 09:35 | PN ---
Progress Note (short form) - Note Progress Note: OOB to chair. In NAD on RA. No acute events overnight. Intake & Output 07/05/19 07/06/19 07/07/19 07/08/19 23:59 23:59 23:59 23:59 Intake Total 400 500 0 Balance 400 500 0 Weight 176 lb 8 oz Last Vital Signs Temp Pulse Resp BP Pulse Ox 98 F 103 H 18 134/86 96 07/08/19 06:00 07/08/19 06:00 07/08/19 06:00 07/08/19 06:00 07/07/19 21:00 Active Medications Acetaminophen (Tylenol -) 650 mg PO Q6H PRN PRN Reason: PAIN LEVEL 6-10 Last Admin: 07/08/19 03:04 Dose: 650 mg Enoxaparin Sodium (Lovenox -) 40 mg SQ DAILY [facility] Last Admin: 07/07/19 09:30 Dose: 40 mg Miscellaneous (Lidoderm Patch Removal) 1 each MC ONCE ONE Stop: 07/08/19 15:01 Morphine Sulfate (Morphine Sulfate) 4 mg IVPUSH Q4H PRN PRN Reason: PAIN LEVEL 7 - 10 Last Admin: 07/07/19 13:45 Dose: 4 mg Oxycodone HCl (Roxicodone -) 5 mg PO Q6H PRN PRN Reason: PAIN LEVEL 4 - 6 Last Admin: 07/08/19 08:06 Dose: 5 mg Quetiapine Fumarate (Seroquel -) 100 mg PO HS [facility] Last Admin: 07/07/19 21:11 Dose: 100 mg Constitutional: Yes: NAD Eyes: Yes: Conjunctiva Clear, EOM Intact HENT: Yes: Atraumatic, Normocephalic Neck: Yes: Supple, Trachea Midline Cardiovascular: Yes: Regular Rate and Rhythm Respiratory: Yes: Diminished breath sounds at the bases ...Clubbing: No Gastrointestinal: Yes: Normal Bowel Sounds, Soft. No: Tenderness Edema: No Neurological: Yes: Alert, Oriented Labs: Problem List - Problems (1) HIV (human immunodeficiency virus infection) Code(s): B20 - HUMAN IMMUNODEFICIENCY VIRUS [HIV] DISEASE Qualifiers: HIV symptom status: asymptomatic Qualified Code(s): Z21 - Asymptomatic human immunodeficiency virus [HIV] infection status (2) Mediastinal mass Code(s): J98.59 - OTHER DISEASES OF MEDIASTINUM, NOT ELSEWHERE CLASSIFIED (3) Pleural effusion Code(s): J90 - PLEURAL EFFUSION, NOT ELSEWHERE CLASSIFIED Assessment/Plan Anterior Mediastinal Mass Left Pleural Effusion HIV Smoker Polysubstance Abuse - will need CT guided biopsy of mediastinal mass (order for IR evaluation placed) - bone scan - may need diagnostic left thoracentesis pending above biopsy results - smoking cessation discussed - pain control - DVT prophylaxis Dr Mccormack
[2019-07-08 09:42] LABS: HEMATOCRIT 46.1 % (35.4-49); HEMOGLOBIN 15.5 GM/dL (11.7-16.9); MCH 30.6 pg (25.7-33.7); MCHC 33.5 g/dl (32.0-35.9); MEAN CELL VOLUME 91.4 fl (80-96); MEAN PLT VOLUME 7.4 fl (7.5-11.1); PLATELET COUNT 273 K/MM3 (134-434); RBC 5.05 M/mm3 (4.00-5.60); RDW 13.6 % (11.9-15.9); WHITE BLOOD COUNT 5.8 K/mm3 (4.0-10.0)
[2019-07-08 10:05] LABS: ALBUMIN 3.8 g/dl (3.4-5.0); BILIRUBIN,TOTAL 0.7 mg/dL (0.2-1); BLOOD UREA NITROGEN 14.4 mg/dL (7-18); CALCIUM 9.4 mg/dL (8.5-10.1); CREATININE 1.2 mg/dL (0.55-1.3); POTASSIUM 4.3 mmol/L (3.5-5.1); TOT PROT 8.1 g/dl (6.4-8.2)
--- NOTE | 2019-07-08 10:12 | CON.ID ---
Consult Consult Specialty:: infectious disease Referred by:: hospitalist Reason for Consultation:: hiv - History of Present Illness Chief Complaint: Left rib pain History of Present Illness: 54 year old man with well controlled HIV and hep B-developed left flank pain mid June, seen in ED here 06/26 - ct abd/pelvis unremarkable pain worsened went to [facility] and was told he had a mass, he left and came here 07/06 no fevers unable to eat- 6 pound weight loss chest ct with anterior mediastinal mass and left pleural effusion born in [place] history of smoking cocaine- last 60 days ago history of hiv for 30 years hep Bsantigen positive heb B E ab positive, hep b viral load less then 50 in 2018 continues to have pain since admission 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 - Past Medical History Hepatobiliary: Yes: Hepatitis B Infectious Disease: Yes: HIV - Past Surgical History Past Surgical History: Yes: Hernia Repair Additional Surgical History: 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) - Alcohol/Substance Use Hx Alcohol Use: No History of Substance Use: reports: Cocaine - Smoking History Smoking history: Current every day smoker Have you smoked in the past 12 months: Yes Aproximately how many cigarettes per day: 6 - Social History ADL: Independent Occupation: [employer] of : [employer] History of Recent Travel: No Home Medications - Allergies Allergies/Adverse Reactions: Allergies Allergy/AdvReac Type Severity Reaction Status Date / Time No Known Allergies Allergy Verified 02/25/19 10:47 - Home Medications Home Medications: Ambulatory Orders Multivitamin,Ther and Minerals [Vitamin and Minerals] 1 each PO DAILY 02/25/19 Pravastatin Sodium [Pravachol -] 20 mg PO HS 02/25/19 Emtricitab/Rilpiviri/Tenof Ala [Odefsey Tablet] 1 each PO DAILY #30 tablet 04/11 Quetiapine Fumarate [Seroquel -] 100 mg PO HS #30 tablet 06/19/19 Polyethylene Glycol 3350 [Miralax (For Daily Use) -] 17 gm PO DAILY PRN #1 bottle 06/26/19 Venlafaxine HCl ER [Effexor Xr -] 75 mg PO DAILY #30 cap.er.24h 06/26/19 Family Medical History Family Hx Cancer: Mother (breast cancer), Father (colon cancer) Review of Systems - Review of Systems Constitutional: reports: Unintentional Wgt. Loss. denies: Chills, Fever Eyes: reports: No Symptoms HENT: reports: No Symptoms Neck: reports: No Symptoms Cardiovascular: reports: No Symptoms Respiratory: reports: No Symptoms, Other (flank pain severe) Gastrointestinal: reports: No Symptoms Genitourinary: reports: No Symptoms Physical Exam Vital Signs: Vital Signs Temperature 98 F 07/08/19 06:00 Pulse Rate 103 H 07/08/19 06:00 Respiratory Rate 18 07/08/19 06:00 Blood Pressure 134/86 07/08/19 06:00 O2 Sat by Pulse Oximetry (%) 96 07/07/19 21:00 Constitutional: Yes: Well Nourished, Moderate Distress Eyes: Yes: WNL, Conjunctiva Clear HENT: Yes: WNL, Atraumatic, Normocephalic. No: Thrush, Tonsillar Exudate Neck: Yes: Supple Cardiovascular: Yes: Regular Rate and Rhythm Respiratory: Yes: Regular, CTA Bilaterally Gastrointestinal: Yes: Normal Bowel Sounds, Soft. No: Ascites, Distention Renal/: Yes: CVA Tenderness - Left Musculoskeletal: Yes: WNL Extremities: Yes: WNL Edema: No Psychiatric: Yes: Alert, Oriented Labs: CBC, BMP 07/08/19 09:02 07/08/19 09:02 cd4 644, virl load less then 20 06/19/19 Imaging - Results Chest X-ray: Report Reviewed, Image Reviewed Cat Scan: Report Reviewed, Image Reviewed Problem List - Problems (1) HIV (human immunodeficiency virus infection) Code(s): B20 - HUMAN IMMUNODEFICIENCY VIRUS [HIV] DISEASE Qualifiers: HIV symptom status: asymptomatic Qualified Code(s): Z21 - Asymptomatic human immunodeficiency virus [HIV] infection status (2) Mediastinal mass Code(s): J98.59 - OTHER DISEASES OF MEDIASTINUM, NOT ELSEWHERE CLASSIFIED (3) Pleural effusion Code(s): J90 - PLEURAL EFFUSION, NOT ELSEWHERE CLASSIFIED (4) Hep B w/o coma Code(s): B19.10 - UNSPECIFIED VIRAL HEPATITIS B WITHOUT HEPATIC COMA (5) Crack cocaine use Code(s): F14.90 - COCAINE USE, UNSPECIFIED, UNCOMPLICATED Assessment/Plan continue odefsey resume psych meds better blankenship control for biopsy of mediastinal mass ?thoracentesis
--- NOTE | 2019-07-08 10:49 | CONSULT ---
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) - Alcohol/Substance Use Hx Alcohol Use: No History of Substance Use: reports: Cocaine - Smoking History Smoking history: Current every day smoker Have you smoked in the past 12 months: Yes Aproximately how many cigarettes per day: 6 If you are a former smoker, when did you quit?: 05/21/17 - Social History ADL: Independent Occupation: [employer] History of Recent Travel: No Home Medications - Allergies Allergies/Adverse Reactions: Allergies Allergy/AdvReac Type Severity Reaction Status Date / Time No Known Allergies Allergy Verified 02/25/19 10:47 - Home Medications Home Medications: Ambulatory Orders Multivitamin,Ther and Minerals [Vitamin and Minerals] 1 each PO DAILY 02/25/19 Pravastatin Sodium [Pravachol -] 20 mg PO HS 02/25/19 Emtricitab/Rilpiviri/Tenof Ala [Odefsey Tablet] 1 each PO DAILY #30 tablet 04/11 Quetiapine Fumarate [Seroquel -] 100 mg PO HS #30 tablet 06/19/19 Polyethylene Glycol 3350 [Miralax (For Daily Use) -] 17 gm PO DAILY PRN #1 bottle 06/26/19 Venlafaxine HCl ER [Effexor Xr -] 75 mg PO DAILY #30 cap.er.24h 06/26/19 Physical Exam Vital Signs: Vital Signs Temperature 98 F 07/08/19 06:00 Pulse Rate 103 H 07/08/19 06:00 Respiratory Rate 18 07/08/19 06:00 Blood Pressure 134/86 07/08/19 06:00 O2 Sat by Pulse Oximetry (%) 96 07/07/19 21:00 Labs: CBC, BMP 07/08/19 09:02 07/08/19 09:02
[2019-07-08] MEDS ORDERED: oxyCODONE HCL 5 MG TABLET PO PRN ×4 (11:22→21:23)
[2019-07-08] MEDS ORDERED: ACETAMINOPHEN 325 MG TABLET (FP) PO PRN (11:23)
[2019-07-08] MEDS ORDERED: VENLAFAXINE HCL 37.5 MG E.R. CAPSULE (FP) PO SCH (12:00)
--- NOTE | 2019-07-08 12:37 | PN ---
Progress Note (short form) - Note Progress Note: Hematology and oncology follow up Subjective: Patient seen and examined at bedside. No events overnight. Patient continues to complain of flank pain which is not adequately controlled by morphine. Primary team to change pain control regimen. Objective: Vital Signs Temperature 99.1 F 07/08/19 14:00 Pulse Rate 101 H 07/08/19 14:00 Respiratory Rate 20 07/08/19 14:00 Blood Pressure 120/75 07/08/19 14:00 O2 Sat by Pulse Oximetry (%) 96 07/08/19 09:00 Active Medications Acetaminophen (Tylenol -) 650 mg PO Q6H PRN PRN Reason: PAIN LEVEL 7 - 10 Last Admin: 07/08/19 15:12 Dose: 650 mg Acetaminophen (Tylenol -) 325 mg PO Q6H PRN PRN Reason: PAIN LEVEL 4 - 6 Atorvastatin Calcium (Lipitor -) 10 mg PO HS [facility] Docusate Sodium (Colace -) 100 mg PO BID [facility] Last Admin: 07/08/19 15:11 Dose: 100 mg Enoxaparin Sodium (Lovenox -) 40 mg SQ DAILY [facility] Last Admin: 07/07/19 09:30 Dose: 40 mg Oxycodone HCl (Roxicodone -) 5 mg PO Q6H PRN PRN Reason: PAIN LEVEL 4 - 6 Oxycodone HCl (Roxicodone -) 10 mg PO Q6H PRN PRN Reason: PAIN LEVEL 7 - 10 Last Admin: 07/08/19 15:12 Dose: 10 mg Quetiapine Fumarate (Seroquel -) 100 mg PO [facility] Last Admin: 07/07/19 21:11 Dose: 100 mg Senna (Senna -) 2 tab PO [facility] Venlafaxine HCl (Effexor Xr -) 75 mg PO DAILY [facility] Last Admin: 07/08/19 12:57 Dose: 75 mg Home Medications Medication Instructions Recorded Multivitamin,Ther and Minerals 1 each PO DAILY 02/25/19 [Vitamin and Minerals] Pravastatin Sodium [Pravachol -] 20 mg PO HS 02/25/19 Emtricitab/Rilpiviri/Tenof Ala 1 each PO DAILY #30 tablet 04/11/19 [Odefsey Tablet] Quetiapine Fumarate [Seroquel -] 100 mg PO HS #30 tablet 06/19/19 Polyethylene Glycol 3350 [Miralax 17 gm PO DAILY PRN #1 bottle 06/26/19 (For Daily Use) -] Venlafaxine HCl ER [Effexor Xr -] 75 mg PO DAILY #30 cap.er.24h 06/26/19 Allergies Allergy/AdvReac Type Severity Reaction Status Date / Time No Known Allergies Allergy Verified 02/25/19 10:47 CBC, BMP 07/08/19 09:02 07/08/19 09:02 Assessment and plan: The patient is a 54 y/o m w/ PMH HIV, HEB B, polysubstance abuse who presents with left rib pain. A CT of the chest showed a large anterior mediastinum mass along with multiple pulmonary nodules. #Mediastinal mass and nodules -concerning for malignancy -patient will require biopsy to better diagnose mass -IR consulted for Bx -will f/u path results.
[2019-07-08] MEDS ORDERED: PT OWN MED DRAWER 7, Y5N ONE (12:56)
[2019-07-08 13:54] LABS: URIC ACID 6.8 mg/dL (2.6-7.2)
[2019-07-08] MEDS ORDERED: LIDOCAINE PATCH REMOVAL MC ONE (15:00)
[2019-07-08] MEDS: DOCUSATE SODIUM 100 MG CAPSULE (FP) PO SCH ×2 (15:11→21:34)
[2019-07-08] MEDS: ACETAMINOPHEN 325 MG TABLET (FP) PO PRN (15:12)
[2019-07-08] MEDS ORDERED: INSULIN (NOVOLOG) ASPART 100 UNITS/ML 10ML VIAL ONE (17:32)
--- NOTE | 2019-07-08 20:37 | PN ---
Progress Note (short form) - Note Progress Note: Patient seen and examined c/o left sided chest pain Last Vital Signs Temp Pulse Resp BP Pulse Ox 98.2 F 102 H 24 H 118/77 96 07/08/19 19:26 07/08/19 19:26 07/08/19 20:19 07/08/19 19:26 07/08/19 20:19 Cor: RSR, No murmurs, No gallops Lungs: decreased breath sounds left lung base Abd: Soft, Normal bowel sounds, No organomegaly Ext:No significant edema Labs/Meds reviewed A/P 54 y/o patient with HIV, anterior mediastinal mass, axillary adenopathy, left pleural effusion Discussed with IR -- for drainage of lft plural fluid Will also request axillary node biopsy Clinical scenario suspicious for lymphoma LDH 461 Check uric acid pain control/laxatives will follow
[2019-07-08] MEDS: SENNOSIDES 8.6MG TABLET (FP) PO SCH (21:33)
[2019-07-08] MEDS: ATORVASTATIN CA 10 MG TABLET (FP) PO SCH (21:34)
[2019-07-08] MEDS: QUEtiapine FUMARATE 100 MG TABLET (FP) PO SCH (21:34)
--- NOTE | 2019-07-08 23:42 | PN ---
Physical Exam: SUBJECTIVE: Patient seen and examined; discussed at length with him regarding ongoing care and he is feeling well with no complaints. 10 sys ROS done and negative aside from HPI OBJECTIVE: Vital Signs Period Temp Pulse Resp BP Sys/Abel Pulse Ox Last 24 Hr 98 F-99.1 F 82-103 18-24 118-151/70-88 96-96 GENERAL: The patient is awake, alert, and fully oriented, in no acute distress. HEAD: Normal with no signs of trauma. EYES: PERRL, extraocular movements intact, sclera anicteric, conjunctiva clear. No ptosis. ENT: Ears normal, nares patent, oropharynx clear without exudates, moist mucous membranes. NECK: Trachea midline, full range of motion, supple. LUNGS: Breath sounds equal, clear to auscultation bilaterally, no wheezes, no crackles, no accessory muscle use. HEART: Regular rate and rhythm, S1, S2 without murmur, rub or gallop. ABDOMEN: Soft, nontender, nondistended, normoactive bowel sounds, no guarding, no rebound, no hepatosplenomegaly, no masses. EXTREMITIES: 2+ pulses, warm, well-perfused, no edema. NEUROLOGICAL: Cranial nerves II through XII grossly intact. Normal speech, gait not observed. PSYCH: Normal mood, normal affect. SKIN: Warm, dry, normal turgor, no rashes or lesions noted Laboratory Results - last 24 hr 07/08/19 07/08/19 09:02 09:02 WBC 5.8 RBC 5.05 Hgb 15.5 Hct 46.1 D MCV 91.4 MCH 30.6 MCHC 33.5 RDW 13.6 Plt Count 273 MPV 7.4 L Sodium 135 L Potassium 4.3 Chloride 100 Carbon Dioxide 29 Anion Gap 7 L BUN 14.4 Creatinine 1.2 Est GFR (CKD-EPI)AfAm 78.43 Est GFR (CKD-EPI)NonAf 67.67 Random Glucose 87 Uric Acid 6.8 Calcium 9.4 Total Bilirubin 0.7 AST 38 H ALT 35 Alkaline Phosphatase 93 LD Total 461 H Total Protein 8.1 Albumin 3.8 Active Medications Generic Name Dose Route Start Last Admin Trade Name Freq PRN Reason Stop Dose Admin Acetaminophen 650 mg 07/08/19 11:23 07/08/19 15:12 Tylenol - PO 650 mg Q6H PRN Administration PAIN LEVEL 7 - 10 Atorvastatin Calcium 10 mg 07/08/19 22:00 07/08/19 21:34 Lipitor - PO 10 mg HS [facility] Administration Docusate Sodium 100 mg 07/08/19 12:30 07/08/19 21:34 Colace - PO 100 mg BID [facility] Administration Oxycodone HCl 10 mg 07/08/19 21:26 07/08/19 21:40 Roxicodone - PO 10 mg Q4H PRN Administration PAIN LEVEL 7 - 10 Quetiapine Fumarate 100 mg 07/06/19 22:00 07/08/19 21:34 Seroquel - PO 100 mg HS [facility] Administration Senna 2 tab 07/08/19 22:00 07/08/19 21:33 Senna - PO 2 tab HS [facility] Administration Venlafaxine HCl 75 mg 07/09/19 12:00 Effexor Xr - PO DAILY@1200 [facility] All prior labs and imaging reviewed and discussed with resident team. ASSESSMENT/PLAN: Seen and examined; problems include: Mediastinal mass with L pleural effusion History of HIV Polysubstance abuse Mood disorder History HLD Continue antimicrobials per ID and followup with [facility] on DC; monitor CBC and lytes and continue current meds. Will need bx and thora; will coordinate with subspecialty consults Visit type - Emergency Visit Emergency Visit: Yes ED Registration Date: 07/06/19 Care time: The patient presented to the Emergency Department on the above date and was hospitalized for further evaluation of their emergent condition. - New Patient This patient is new to me today: No - Critical Care Critical Care patient: No
--- NOTE | 2019-07-08 23:58 | PN ---
Progress Note (short form) - Note Progress Note: HPI: Pt awaiting biopsy for potential malignant evaluation. Pt reports not being on his home psych meds. He reports intense pain and unable to sit still during examination. Pt reports not wanting any Morphine due to "not feeling well " on it without much elaboration. He would rather use Oxycodone-Tylenol 10-650 for his pain which has worked in the past. Pt denies any fever/chills, night sweats, other B-symptoms, shortness of breath, cough, palpitation, chest pain, abdominal pain. PE: GEN: Mild distress, awake, alert, oriented x3 HEENT: NC/AT, PATRICIA, no conjunctival pallor, MMM LUNG: CTA b/l no wheezes CARD: RRR no murmurs BACK: No overt tenderness with spinous process palpation, structurally intact ABD: soft, Nt/ND, normoactive BS EXT: no edema, distal pulses intact b/l CBC, BMP 07/08/19 09:02 07/08/19 09:02 Hepatic Panel Total Bilirubin 0.7 mg/dL (0.2-1) 07/08/19 09:02 AST 38 U/L (15-37) H 07/08/19 09:02 ALT 35 U/L (13-61) 07/08/19 09:02 Alkaline Phosphatase 93 U/L (45-117) 07/08/19 09:02 Albumin 3.8 g/dl (3.4-5.0) 07/08/19 09:02 Microbiology 07/06/19 02:30 Urine - Urine Clean Catch Urine Culture - Final NO GROWTH OBTAINED Active Medications Acetaminophen (Tylenol -) 650 mg PO Q6H PRN PRN Reason: PAIN LEVEL 7 - 10 Last Admin: 07/08/19 15:12 Dose: 650 mg Atorvastatin Calcium (Lipitor -) 10 mg PO HS [facility] Last Admin: 07/08/19 21:34 Dose: 10 mg Docusate Sodium (Colace -) 100 mg PO BID [facility] Last Admin: 07/08/19 21:34 Dose: 100 mg Oxycodone HCl (Roxicodone -) 10 mg PO Q4H PRN PRN Reason: PAIN LEVEL 7 - 10 Last Admin: 07/08/19 21:40 Dose: 10 mg Quetiapine Fumarate (Seroquel -) 100 mg PO HS [facility] Last Admin: 07/08/19 21:34 Dose: 100 mg Senna (Senna -) 2 tab PO HS [facility] Last Admin: 07/08/19 21:33 Dose: 2 tab Venlafaxine HCl (Effexor Xr -) 75 mg PO DAILY@1200 [facility] Assessment and Plan: Mediastinal mass with L pleural effusion History of HIV Polysubstance abuse Mood disorder History HLD --Pt's pain regiment changed: Percocet 5-325 and 10-650 PRN per pain scale Pt amenable to lidocaine patches in addition to pain regiment --IR consulted for mediastinal biopsy; unfortunately pt received lovenox in AM --Will plan for bx tomorrow morning --Will likely need diagnostic thoracentesis for cytology evaluation --Continue pt's HIV medications --Will restart pt's home Seroquel and Effexor 75mg qdaily --Restart Lipitor 10mg HS --appreciated all consultations recommendations FEN: Fluids: PO only Electrolyte abnormalities: none today Nutrition: Regular PPX: DVT - Holding Lovenox for procedure GI - Not indicated currently Dispo: IR guided biopsy tomorrow Case discussed with Dr. Cristofer Casas, DO - IM PGy-3
[2019-07-09] MEDS: oxyCODONE HCL 5 MG TABLET PO PRN ×5 (02:17→21:03)
[2019-07-09] MEDS: ACETAMINOPHEN 325 MG TABLET (FP) PO PRN ×3 (07:28→22:28)
[2019-07-09 08:19] LABS: BASO % 0.5 % (0-2.0); HEMATOCRIT 42.2 % (35.4-49); HEMOGLOBIN 14.5 GM/dL (11.7-16.9); LYMPH % 35.3 % (8-40); MCH 31.1 pg (25.7-33.7); MCHC 34.4 g/dl (32.0-35.9); MEAN CELL VOLUME 90.3 fl (80-96); MEAN PLT VOLUME 7.3 fl (7.5-11.1); MONO % 11.9 % (3.8-10.2); NEUT % 47.3 % (42.8-82.8); PLATELET COUNT 261 K/MM3 (134-434); RBC 4.68 M/mm3 (4.00-5.60); RDW 13.3 % (11.9-15.9); WHITE BLOOD COUNT 4.9 K/mm3 (4.0-10.0)
[2019-07-09 08:27] LABS: INR 1.15 (0.83-1.09); PROTHROMBIN TIME (PATIENT) 13.6 SEC (9.7-13.0)
[2019-07-09 08:30] LABS: ACTIVATED PTT 41.7 SECONDS (25.2-36.5)
[2019-07-09 08:47] LABS: ALBUMIN 3.4 g/dl (3.4-5.0); BILIRUBIN,TOTAL 0.6 mg/dL (0.2-1); BLOOD UREA NITROGEN 17.7 mg/dL (7-18); CALCIUM 9.2 mg/dL (8.5-10.1); CREATININE 1.2 mg/dL (0.55-1.3); POTASSIUM 4.4 mmol/L (3.5-5.1); TOT PROT 7.5 g/dl (6.4-8.2)
--- NOTE | 2019-07-09 09:44 | PN ---
Progress Note (short form) - Note Progress Note: Resting in NAD. Feels well. No acute events overnight. Awaiting tissue sampling per IR today. Intake & Output 07/06/19 07/07/19 07/08/19 07/09/19 23:59 23:59 23:59 23:59 Intake Total 400 500 950 50 Balance 400 500 950 50 Weight 176 lb 8 oz Last Vital Signs Temp Pulse Resp BP Pulse Ox 98.2 F 85 24 H 110/60 96 07/08/19 19:26 07/09/19 07:04 07/08/19 20:19 07/09/19 07:04 07/08/19 20:19 Active Medications Acetaminophen (Tylenol -) 650 mg PO Q6H PRN PRN Reason: PAIN LEVEL 7 - 10 Last Admin: 07/09/19 07:28 Dose: 650 mg Atorvastatin Calcium (Lipitor -) 10 mg PO [facility] Last Admin: 07/08/19 21:34 Dose: 10 mg Docusate Sodium (Colace -) 100 mg PO BID [facility] Last Admin: 07/08/19 21:34 Dose: 100 mg Oxycodone HCl (Roxicodone -) 10 mg PO Q4H PRN PRN Reason: PAIN LEVEL 7 - 10 Last Admin: 07/09/19 07:28 Dose: 10 mg Quetiapine Fumarate (Seroquel -) 100 mg PO [facility] Last Admin: 07/08/19 21:34 Dose: 100 mg Senna (Senna -) 2 tab PO [facility] Last Admin: 07/08/19 21:33 Dose: 2 tab Venlafaxine HCl (Effexor Xr -) 75 mg PO DAILY@1200 [facility] Constitutional: Yes: NAD Eyes: Yes: Conjunctiva Clear, EOM Intact HENT: Yes: Atraumatic, Normocephalic Neck: Yes: Supple, Trachea Midline Cardiovascular: Yes: Regular Rate and Rhythm Respiratory: Yes: Diminished breath sounds at the bases ...Clubbing: No Gastrointestinal: Yes: Normal Bowel Sounds, Soft. No: Tenderness Edema: No Neurological: Yes: Alert, Oriented Labs: Laboratory Results - last 24 hr 07/08/19 07/08/19 07/09/19 09:02 09:02 07:00 WBC 5.8 RBC 5.05 Hgb 15.5 Hct 46.1 D MCV 91.4 MCH 30.6 MCHC 33.5 RDW 13.6 Plt Count 273 MPV 7.4 L Absolute Neuts (auto) Neutrophils % Lymphocytes % Monocytes % Eosinophils % Basophils % Nucleated RBC % PT with INR 13.60 H INR 1.15 H PTT (Actin FS) 41.7 H Fibrinogen Sodium 135 L Potassium 4.3 Chloride 100 Carbon Dioxide 29 Anion Gap 7 L BUN 14.4 Creatinine 1.2 Est GFR (CKD-EPI)AfAm 78.43 Est GFR (CKD-EPI)NonAf 67.67 Random Glucose 87 Uric Acid 6.8 Calcium 9.4 Total Bilirubin 0.7 AST 38 H ALT 35 Alkaline Phosphatase 93 LD Total 461 H Total Protein 8.1 Albumin 3.8 Blood Type Antibody Screen 07/09/19 07/09/19 07/09/19 07:00 07:00 07:00 WBC 4.9 RBC 4.68 Hgb 14.5 Hct 42.2 MCV 90.3 MCH 31.1 MCHC 34.4 RDW 13.3 Plt Count 261 MPV 7.3 L Absolute Neuts (auto) 2.3 Neutrophils % 47.3 Lymphocytes % 35.3 Monocytes % 11.9 H Eosinophils % 5.0 H Basophils % 0.5 Nucleated RBC % 0 PT with INR INR PTT (Actin FS) Fibrinogen 472.0 Sodium Potassium Chloride Carbon Dioxide Anion Gap BUN Creatinine Est GFR (CKD-EPI)AfAm Est GFR (CKD-EPI)NonAf Random Glucose Uric Acid Calcium Total Bilirubin AST ALT Alkaline Phosphatase LD Total Total Protein Albumin Blood Type O POSITIVE Antibody Screen Negative 07/09/19 07:00 WBC RBC Hgb Hct MCV MCH MCHC RDW Plt Count MPV Absolute Neuts (auto) Neutrophils % Lymphocytes % Monocytes % Eosinophils % Basophils % Nucleated RBC % PT with INR INR PTT (Actin FS) Fibrinogen Sodium 134 L Potassium 4.4 Chloride 99 Carbon Dioxide 29 Anion Gap 7 L BUN 17.7 Creatinine 1.2 Est GFR (CKD-EPI)AfAm 78.43 Est GFR (CKD-EPI)NonAf 67.67 Random Glucose 89 Uric Acid Calcium 9.2 Total Bilirubin 0.6 AST 36 ALT 31 Alkaline Phosphatase 88 LD Total Total Protein 7.5 Albumin 3.4 Blood Type Antibody Screen Problem List - Problems (1) HIV (human immunodeficiency virus infection) Code(s): B20 - HUMAN IMMUNODEFICIENCY VIRUS [HIV] DISEASE Qualifiers: HIV symptom status: asymptomatic Qualified Code(s): Z21 - Asymptomatic human immunodeficiency virus [HIV] infection status (2) Mediastinal mass Code(s): J98.59 - OTHER DISEASES OF MEDIASTINUM, NOT ELSEWHERE CLASSIFIED (3) Pleural effusion Code(s): J90 - PLEURAL EFFUSION, NOT ELSEWHERE CLASSIFIED Assessment/Plan Anterior Mediastinal Mass Left Pleural Effusion HIV Smoker Polysubstance Abuse R/O Lymphoma - For possible tissue sampling per IR today - smoking cessation discussed - pain control - DVT prophylaxis Dr Mccormack
--- NOTE | 2019-07-09 12:14 | PN ---
Progress Note (short form) - Note Progress Note: HPI: Pt for biopsy today, however informed that CT scan is having technical difficulties. Will have thoracentesis and axilla U/S for assessment of size of LN. Pt today has better pain control and has no new complaints at this time. PE: GEN: Mild distress, awake, alert, oriented x3 HEENT: NC/AT, PATRICIA, no conjunctival pallor, MMM LUNG: CTA b/l no wheezes CARD: RRR no murmurs BACK: No overt tenderness with spinous process palpation, structurally intact ABD: soft, Nt/ND, normoactive BS EXT: no edema, distal pulses intact b/l CBC, BMP 07/08/19 09:02 07/08/19 09:02 Hepatic Panel Total Bilirubin 0.7 mg/dL (0.2-1) 07/08/19 09:02 AST 38 U/L (15-37) H 07/08/19 09:02 ALT 35 U/L (13-61) 07/08/19 09:02 Alkaline Phosphatase 93 U/L (45-117) 07/08/19 09:02 Albumin 3.8 g/dl (3.4-5.0) 07/08/19 09:02 Microbiology 07/08/19 18:30 Sputum - Expectorated Gram Stain - Final 07/08/19 18:30 Urine For Antigen Detection Legionella Antigen - Final 07/08/19 18:30 Urine For Antigen Detection Streptococcus pneumoniae Antigen (M - Final 07/06/19 02:30 Urine - Urine Clean Catch Urine Culture - Final NO GROWTH OBTAINED Active Medications Acetaminophen (Tylenol -) 325 mg PO Q4H PRN PRN Reason: PAIN Last Admin: 07/09/19 22:28 Dose: 325 mg Atorvastatin Calcium (Lipitor -) 10 mg PO HS [facility] Last Admin: 07/09/19 21:04 Dose: 10 mg Docusate Sodium (Colace -) 100 mg PO BID [facility] Last Admin: 07/09/19 21:04 Dose: 100 mg Oxycodone HCl (Roxicodone -) 10 mg PO Q4H PRN PRN Reason: PAIN LEVEL 7 - 10 Last Admin: 07/09/19 21:03 Dose: 10 mg Quetiapine Fumarate (Seroquel -) 100 mg PO HS [facility] Last Admin: 07/09/19 21:04 Dose: 100 mg Senna (Senna -) 2 tab PO HS [facility] Last Admin: 07/09/19 21:04 Dose: 2 tab Venlafaxine HCl (Effexor Xr -) 75 mg PO DAILY@1200 [facility] Last Admin: 07/09/19 16:54 Dose: 75 mg Assessment and Plan: Mediastinal mass with L pleural effusion History of HIV Polysubstance abuse Mood disorder History HLD --Pt's pain regiment changed: Percocet 5-325 and 10-650 PRN per pain scale --Pt amenable to lidocaine patches in addition to pain regiment --Thoracentesis perofmred today with IR --Pleural fluid studies sent for evaluation --F/U Axilla U/S for LN size --If small will have to consult surgery for excisional biopsy --If large enough can core biopsy with IR --EBV ordered for completeness if pt --Continue pt's HIV medications --Will restart pt's home Seroquel and Effexor 75mg qdaily --Restart Lipitor 10mg HS --appreciated all consultations recommendations FEN: Fluids: PO only Electrolyte abnormalities: none today Nutrition: NPO until after procedure --> Regular --> NPO at midnight again PPX: DVT - Holding Lovenox for procedure GI - Not indicated currently Dispo: Continue monitoring Case discussed with Dr. Cristofer Casas, DO - IM PGy-3 <Shon Casas - Last Filed: 07/09/19 23:45> - Note Progress Note: Seen and examined; no new complaints. Discussed with resident. Personally reviewed all labs and imaging. Discussed with patient at length regarding diagnostic workup and exectations of care. He is doing well and is anticipating his biopsy. Discussed with subspecialty services. Discussed with resident team at length regarding HIV and EBV association. 45 minutes spent in the ongoing care of this patient including time spent in face to face counseling No new complaints; constipation noted. 10 sys ROS done and negative aside from HPI VS labs and imaging reviewed NAD AAO RESTING IN BED RRR S1/2 NT ND -BS CN2-12 WNL, NO FND NORMAL MOOD, APPROPRIATE BEHAVIOR TEMPORAL WASTING NOTED ASSESSMENT/PLAN: Seen and examined; problems include: Mediastinal mass with L pleural effusion History of HIV Polysubstance abuse Mood disorder History HLD Continue antimicrobials per ID and followup with [facility] on DC; monitor CBC and lytes and continue current meds. Will need bx and thora; will coordinate with subspecialty consults <Colin Cleveland - Last Filed: 07/11/19 23:40>
--- NOTE | 2019-07-09 12:28 | PN ---
Progress Note (short form) - Note Progress Note: Hematology and oncology follow up Subjective: Patient seen and examined at bedside. No events overnight. Pain now controlled. Objective: Vital Signs Temperature 98.2 F 07/08/19 19:26 Pulse Rate 85 07/09/19 07:04 Respiratory Rate 24 H 07/08/19 20:19 Blood Pressure 110/60 07/09/19 07:04 O2 Sat by Pulse Oximetry (%) 96 07/08/19 20:19 Active Medications Acetaminophen (Tylenol -) 650 mg PO Q6H PRN PRN Reason: PAIN LEVEL 7 - 10 Last Admin: 07/09/19 07:28 Dose: 650 mg Atorvastatin Calcium (Lipitor -) 10 mg PO [facility] Last Admin: 07/08/19 21:34 Dose: 10 mg Docusate Sodium (Colace -) 100 mg PO BID [facility] Last Admin: 07/08/19 21:34 Dose: 100 mg Oxycodone HCl (Roxicodone -) 10 mg PO Q4H PRN PRN Reason: PAIN LEVEL 7 - 10 Last Admin: 07/09/19 07:28 Dose: 10 mg Quetiapine Fumarate (Seroquel -) 100 mg PO [facility] Last Admin: 07/08/19 21:34 Dose: 100 mg Senna (Senna -) 2 tab PO [facility] Last Admin: 07/08/19 21:33 Dose: 2 tab Venlafaxine HCl (Effexor Xr -) 75 mg PO DAILY@1200 [facility] Home Medications Medication Instructions Recorded Multivitamin,Ther and Minerals 1 each PO DAILY 02/25/19 [Vitamin and Minerals] Pravastatin Sodium [Pravachol -] 20 mg PO HS 02/25/19 Emtricitab/Rilpiviri/Tenof Ala 1 each PO DAILY #30 tablet 04/11/19 [Odefsey Tablet] Quetiapine Fumarate [Seroquel -] 100 mg PO HS #30 tablet 06/19/19 Polyethylene Glycol 3350 [Miralax 17 gm PO DAILY PRN #1 bottle 06/26/19 (For Daily Use) -] Venlafaxine HCl ER [Effexor Xr -] 75 mg PO DAILY #30 cap.er.24h 06/26/19 Allergies Allergy/AdvReac Type Severity Reaction Status Date / Time No Known Allergies Allergy Verified 02/25/19 10:47 CBC, BMP 07/09/19 07:00 07/09/19 07:00 Assessment and plan: The patient is a 54 y/o m w/ PMH HIV, HEB B, polysubstance abuse who presents with left rib pain. A CT of the chest showed a large anterior mediastinum mass along with multiple pulmonary nodules. #Mediastinal mass and nodules -concerning for malignancy -patient will require biopsy to better diagnose mass -For IR guided Biopsy today -monitor coags daily -will f/u path results.
[2019-07-09] MEDS ORDERED: PT OWN MED DRAWER 7, Y5N ONE (13:32)
[2019-07-09] MEDS: EMTRICITAB/RILPIVIRI/TENOF ALA (ODEFSEY) TABLET PO SCH (13:38)
--- NOTE | 2019-07-09 14:09 | PN ---
Progress Note (short form) - Note Progress Note: pain is better controlled he is NPO waiting for IR procedure still with left flank pain Vital Signs Period Temp Pulse Resp BP Sys/Abel Pulse Ox Last 24 Hr 98.2 F-98.5 F 85-102 18-24 110-133/60-77 96 cor-rrr lungs decreased bs on the left abd soft,nt ext no edema CBC, BMP 07/09/19 07:00 07/09/19 07:00 Microbiology 07/08/19 18:30 Urine For Antigen Detection Legionella Antigen - Final 07/08/19 18:30 Urine For Antigen Detection Streptococcus pneumoniae Antigen (M - Final 07/06/19 02:30 Urine - Urine Clean Catch Urine Culture - Final NO GROWTH OBTAINED a/p mediastinal mass left pleural effusion stable HIV chronic hep B continue odefsey for biopsy and thoracentesis today Problem List - Problems (1) HIV (human immunodeficiency virus infection) Code(s): B20 - HUMAN IMMUNODEFICIENCY VIRUS [HIV] DISEASE Qualifiers: HIV symptom status: asymptomatic Qualified Code(s): Z21 - Asymptomatic human immunodeficiency virus [HIV] infection status (2) Mediastinal mass Code(s): J98.59 - OTHER DISEASES OF MEDIASTINUM, NOT ELSEWHERE CLASSIFIED (3) Pleural effusion Code(s): J90 - PLEURAL EFFUSION, NOT ELSEWHERE CLASSIFIED (4) Hep B w/o coma Code(s): B19.10 - UNSPECIFIED VIRAL HEPATITIS B WITHOUT HEPATIC COMA (5) Crack cocaine use Code(s): F14.90 - COCAINE USE, UNSPECIFIED, UNCOMPLICATED
[2019-07-09 16:53] LABS: BF WBC & OTHER NUCLEATED CELLS 45764 /mm3
[2019-07-09] MEDS: DOCUSATE SODIUM 100 MG CAPSULE (FP) PO SCH ×2 (16:54→21:04)
[2019-07-09] MEDS: VENLAFAXINE HCL 75 MG E.R. CAPSULES (FP) PO SCH (16:54)
[2019-07-09 18:46] LABS: BODY FLUID MONOCYTE 5 %
[2019-07-09] MEDS: SENNOSIDES 8.6MG TABLET (FP) PO SCH (21:04)
[2019-07-09] MEDS: QUEtiapine FUMARATE 100 MG TABLET (FP) PO SCH (21:04)
[2019-07-09] MEDS: ATORVASTATIN CA 10 MG TABLET (FP) PO SCH (21:04)
--- NOTE | 2019-07-09 21:06 | PN ---
Progress Note (short form) - Note Progress Note: Patient seen and examined Left chest pain and shortness of breath improved after thoracentesis today AFVSS Cor: RSR, No murmurs, No gallops Lungs: decreased breath sounds left lung base Abd: Soft, Normal bowel sounds, No organomegaly Ext:No significant edema Labs/Meds reviewed A/P 54 y/o patient with HIV, anterior mediastinal mass, axillary adenopathy, left pleural effusion Discussed with IR -- s/p drainage of left pleural fluid Will also request axillary node biopsy/flow Clinical scenario suspicious for lymphoma LDH 461 Check uric acid pain control/laxatives
[2019-07-10] MEDS: oxyCODONE HCL 5 MG TABLET PO PRN ×5 (01:25→20:24)
[2019-07-10] MEDS: ACETAMINOPHEN 325 MG TABLET (FP) PO PRN ×4 (03:56→20:25)
--- NOTE | 2019-07-10 08:15 | PN ---
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 Discussed with ID and can leave without precautions due to lack of symptoms and likely false-positive for TB. Pleural studies pending Original Note: Progress Note (short form) - Note Progress Note: HPI: No events today. Pt curious about long-term plan. No other complaints today PE: GEN: NAD, awake, alert, oriented x3 HEENT: NC/AT, PATRICIA, no conjunctival pallor, MMM LUNG: CTA b/l no wheezes CARD: RRR no murmurs BACK: No overt tenderness with spinous process palpation, structurally intact ABD: soft, Nt/ND, normoactive BS EXT: no edema, distal pulses intact b/l CBC, BMP 07/10/19 07:28 07/10/19 06:00 Microbiology 07/08/19 18:30 Sputum - Expectorated Gram Stain - Final 07/08/19 18:30 Urine For Antigen Detection Legionella Antigen - Final 07/08/19 18:30 Urine For Antigen Detection Streptococcus pneumoniae Antigen (M - Final 07/06/19 02:30 Urine - Urine Clean Catch Urine Culture - Final NO GROWTH OBTAINED Active Medications Acetaminophen (Tylenol -) 325 mg PO Q4H PRN PRN Reason: PAIN Last Admin: 07/10/19 20:25 Dose: 325 mg Atorvastatin Calcium (Lipitor -) 10 mg PO HS [facility] Last Admin: 07/10/19 21:14 Dose: 10 mg Docusate Sodium (Colace -) 100 mg PO BID [facility] Last Admin: 07/10/19 21:14 Dose: 100 mg Oxycodone HCl (Roxicodone -) 10 mg PO Q4H PRN PRN Reason: PAIN LEVEL 7 - 10 Last Admin: 07/10/19 20:24 Dose: 10 mg Quetiapine Fumarate (Seroquel -) 100 mg PO HS [facility] Last Admin: 07/10/19 21:15 Dose: 100 mg Senna (Senna -) 2 tab PO HS [facility] Last Admin: 07/10/19 21:14 Dose: 2 tab Venlafaxine HCl (Effexor Xr -) 75 mg PO DAILY@1200 [facility] Last Admin: 10/30/19 13:54 Dose: 75 mg Assessment and Plan: Mediastinal mass with L pleural effusion History of HIV Polysubstance abuse Mood disorder History HLD --Pt's pain regiment changed: Percocet 5-325 and 10-650 PRN per pain scale --Thoracentesis perofmred today with IR --Pleural fluid studies sent for evaluation; still pending --Axilla with notable LN --Discussed with IR; will go for mediastinal mass as pt has higher yield for biopsy --CT scanner in maintenance and will be planned for bx tomorrow --Continue pt's HIV medications --Continue Seroquel 100mg HS and Effexor 75mg qdaily --Continue Lipitor 10mg HS --appreciated all consultations recommendations FEN: Fluids: PO only Electrolyte abnormalities: none today Nutrition: NPO until after procedure --> Regular --> NPO at midnight again PPX: DVT - Holding Lovenox for procedure GI - Not indicated currently Dispo: Continue monitoring Case discussed with Dr. Cristofer Casas DO - IM PGy-3 <Shon Casas - Last Filed: 07/10/19 22:55> - Note Progress Note: Seen and examined; no new complaints. Discussed with resident. Personally reviewed all labs and imaging. Discussed with patient at length regarding diagnostic workup and exectations of care. He is doing well and is anticipating his biopsy. Discussed with subspecialty services. Discussed with resident team at length regarding HIV and EBV association. 45 minutes spent in the ongoing care of this patient including time spent in face to face counseling No new complaints; constipation noted. 10 sys ROS done and negative aside from HPI VS labs and imaging reviewed NAD AAO RESTING IN BED RRR S1/2 NT ND -BS CN2-12 WNL, NO FND NORMAL MOOD, APPROPRIATE BEHAVIOR TEMPORAL WASTING NOTED ASSESSMENT/PLAN: Seen and examined; problems include: Mediastinal mass with L pleural effusion History of HIV Polysubstance abuse Mood disorder History HLD Continue antimicrobials per ID and followup with [facility] on DC; monitor CBC and lytes and continue current meds. Will need bx and thora; will coordinate with subspecialty consults No consistent studies with active TB; this is all old and he gave consistent history Monitor for oncologic workup IR intends on going for LN approach <Colin Cleveland - Last Filed: 07/11/19 23:43>
[2019-07-10 08:28] LABS: HEMATOCRIT 42.8 % (35.4-49); HEMOGLOBIN 14.2 GM/dL (11.7-16.9); MCH 30.4 pg (25.7-33.7); MCHC 33.1 g/dl (32.0-35.9); MEAN CELL VOLUME 91.7 fl (80-96); MEAN PLT VOLUME 7.6 fl (7.5-11.1); PLATELET COUNT 264 K/MM3 (134-434); RBC 4.67 M/mm3 (4.00-5.60); RDW 13.3 % (11.9-15.9); WHITE BLOOD COUNT 5.8 K/mm3 (4.0-10.0)
[2019-07-10 08:56] LABS: BLOOD UREA NITROGEN 21.1 mg/dL (7-18); CALCIUM 8.4 mg/dL (8.5-10.1); CREATININE 1.3 mg/dL (0.55-1.3); MAGNESIUM 2.2 mg/dL (1.8-2.4); POTASSIUM 4.4 mmol/L (3.5-5.1)
[2019-07-10] MEDS ORDERED: PT OWN MED DRAWER 7, Y5N ONE (10:20)
[2019-07-10] MEDS: EMTRICITAB/RILPIVIRI/TENOF ALA (ODEFSEY) TABLET PO SCH (10:49)
[2019-07-10] MEDS: DOCUSATE SODIUM 100 MG CAPSULE (FP) PO SCH ×2 (10:50→21:14)
[2019-07-10] MEDS: VENLAFAXINE HCL 75 MG E.R. CAPSULES (FP) PO SCH (13:54)
--- NOTE | 2019-07-10 14:26 | PN ---
Progress Note (short form) - Note Progress Note: PULMONARY s/p left thoracentesis draining 1L fluid. Pleural fluid analysis pending. States back pain improving. No shortness of breath. Vital Signs Period Temp Pulse Resp BP Sys/Abel Pulse Ox Last 24 Hr 97.6 F-98.8 F 82-98 18-22 104-124/61-79 Intake & Output 07/07/19 07/08/19 07/09/19 07/10/19 23:59 23:59 23:59 23:59 Intake Total 281 510 5687 Balance 118 354 4146 Gen: NAD at rest Heart: RRR Lung: decreased breath sounds at the bases Abd: soft, nontender Ext: no edema CBC, BMP 07/10/19 07:28 07/10/19 06:00 Active Medications Acetaminophen (Tylenol -) 325 mg PO Q4H PRN PRN Reason: PAIN Last Admin: 07/10/19 10:48 Dose: 325 mg Atorvastatin Calcium (Lipitor -) 10 mg PO [facility] Last Admin: 07/09/19 21:04 Dose: 10 mg Docusate Sodium (Colace -) 100 mg PO BID [facility] Last Admin: 07/10/19 10:50 Dose: 100 mg Oxycodone HCl (Roxicodone -) 10 mg PO Q4H PRN PRN Reason: PAIN LEVEL 7 - 10 Last Admin: 07/10/19 10:48 Dose: 10 mg Quetiapine Fumarate (Seroquel -) 100 mg PO [facility] Last Admin: 07/09/19 21:04 Dose: 100 mg Senna (Senna -) 2 tab PO [facility] Last Admin: 07/09/19 21:04 Dose: 2 tab Venlafaxine HCl (Effexor Xr -) 75 mg PO DAILY@1200 [facility] Last Admin: 07/10/19 13:54 Dose: 75 mg A/P Anterior Mediastinal Mass Left Pleural Effusion s/p thoracentesis HIV Smoker Polysubstance Abuse - f/u pleural fluid studies, cytology - smoking cessation discussed - pain control - DVT prophylaxis Problem List - Problems (1) HIV (human immunodeficiency virus infection) Code(s): B20 - HUMAN IMMUNODEFICIENCY VIRUS [HIV] DISEASE Qualifiers: HIV symptom status: asymptomatic Qualified Code(s): Z21 - Asymptomatic human immunodeficiency virus [HIV] infection status (2) Mediastinal mass Code(s): J98.59 - OTHER DISEASES OF MEDIASTINUM, NOT ELSEWHERE CLASSIFIED (3) Pleural effusion Code(s): J90 - PLEURAL EFFUSION, NOT ELSEWHERE CLASSIFIED
--- NOTE | 2019-07-10 15:53 | PN ---
Progress Note (short form) - Note Progress Note: pain is better controlled s/p thoracentesis yesterday no cough or fever Vital Signs Period Temp Pulse Resp BP Sys/Abel Pulse Ox Last 24 Hr 97.6 F-98.8 F 82-98 18-22 104-129/61-95 cor-rrr lungs clear abd soft,nt ext no edema CBC, BMP 07/10/19 07:28 07/10/19 06:00 Microbiology 07/09/19 14:43 Pleural Fluid Gram Stain - Final 07/08/19 18:30 Sputum - Expectorated Gram Stain - Final 07/08/19 18:30 Sputum - Expectorated Sputum Culture - Preliminary NORMAL RESPIRATORY DARVIN 07/08/19 18:30 Urine For Antigen Detection Legionella Antigen - Final 07/08/19 18:30 Urine For Antigen Detection Streptococcus pneumoniae Antigen (M - Final 07/06/19 02:30 Urine - Urine Clean Catch Urine Culture - Final NO GROWTH OBTAINED a/p mediastinal mass-suspected malignancy left pleural effusion-s/p thoracentesis- awaiting cytology, cultures sent stable HIV chronic hep B prior history of +PPD- treated with INH for 6 months- this could explain his positive quantiferon when he has biopsy-please send tissue for afb smear/pcr and culture as well as [facility] Problem List - Problems (1) HIV (human immunodeficiency virus infection) Code(s): B20 - HUMAN IMMUNODEFICIENCY VIRUS [HIV] DISEASE Qualifiers: HIV symptom status: asymptomatic Qualified Code(s): Z21 - Asymptomatic human immunodeficiency virus [HIV] infection status (2) Mediastinal mass Code(s): J98.59 - OTHER DISEASES OF MEDIASTINUM, NOT ELSEWHERE CLASSIFIED (3) Pleural effusion Code(s): J90 - PLEURAL EFFUSION, NOT ELSEWHERE CLASSIFIED (4) Hep B w/o coma Code(s): B19.10 - UNSPECIFIED VIRAL HEPATITIS B WITHOUT HEPATIC COMA (5) Crack cocaine use Code(s): F14.90 - COCAINE USE, UNSPECIFIED, UNCOMPLICATED
[2019-07-10] MEDS ORDERED: PHYTONADIONE 10 MG/1 ML AMP SQ ONE (19:08)
[2019-07-10] MEDS: ATORVASTATIN CA 10 MG TABLET (FP) PO SCH (21:14)
[2019-07-10] MEDS: SENNOSIDES 8.6MG TABLET (FP) PO SCH (21:14)
[2019-07-10] MEDS: QUEtiapine FUMARATE 100 MG TABLET (FP) PO SCH (21:15)
[2019-07-11] MEDS: oxyCODONE HCL 5 MG TABLET PO PRN ×3 (09:02→21:02)
[2019-07-11] MEDS: ACETAMINOPHEN 325 MG TABLET (FP) PO PRN ×3 (09:03→21:02)
[2019-07-11 09:20] LABS: BASO % 0.4 % (0-2.0); HEMATOCRIT 44.4 % (35.4-49); HEMOGLOBIN 15.2 GM/dL (11.7-16.9); LYMPH % 40.3 % (8-40); MCHC 34.2 g/dl (32.0-35.9); MEAN CELL VOLUME 90.8 fl (80-96); MEAN PLT VOLUME 7.4 fl (7.5-11.1); MONO % 10.9 % (3.8-10.2); NEUT % 43.4 % (42.8-82.8); PLATELET COUNT 285 K/MM3 (134-434); RBC 4.89 M/mm3 (4.00-5.60); RDW 13.4 % (11.9-15.9); WHITE BLOOD COUNT 4.7 K/mm3 (4.0-10.0)
[2019-07-11 09:33] LABS: INR 1.11 (0.83-1.09); PROTHROMBIN TIME (PATIENT) 13.1 SEC (9.7-13.0)
[2019-07-11 09:36] LABS: ACTIVATED PTT 40.8 SECONDS (25.2-36.5)
--- NOTE | 2019-07-11 10:18 | PN ---
Progress Note (short form) - Note Progress Note: Resting in NAD. Some mild discomfort at the thoracentesis site. No acute events overnight. Awaiting LN biopsy per IR today. Intake & Output 07/08/19 07/09/19 07/10/19 07/11/19 23:59 23:59 23:59 23:59 Intake Total 950 1150 1400 Balance 950 1150 1400 Last Vital Signs Temp Pulse Resp BP Pulse Ox 98.2 F 93 H 20 122/64 98 07/11/19 06:52 07/11/19 06:52 07/11/19 06:52 07/11/19 06:52 07/10/19 22:00 Active Medications Acetaminophen (Tylenol -) 325 mg PO Q4H PRN PRN Reason: PAIN Last Admin: 07/11/19 09:03 Dose: 325 mg Atorvastatin Calcium (Lipitor -) 10 mg PO [facility] Last Admin: 07/10/19 21:14 Dose: 10 mg Docusate Sodium (Colace -) 100 mg PO BID [facility] Last Admin: 07/10/19 21:14 Dose: 100 mg Oxycodone HCl (Roxicodone -) 10 mg PO Q4H PRN PRN Reason: PAIN LEVEL 7 - 10 Last Admin: 07/11/19 09:02 Dose: 10 mg Quetiapine Fumarate (Seroquel -) 100 mg PO [facility] Last Admin: 07/10/19 21:15 Dose: 100 mg Senna (Senna -) 2 tab PO [facility] Last Admin: 07/10/19 21:14 Dose: 2 tab Venlafaxine HCl (Effexor Xr -) 75 mg PO DAILY@1200 [facility] Last Admin: 07/10/19 13:54 Dose: 75 mg Constitutional: Yes: NAD Eyes: Yes: Conjunctiva Clear, EOM Intact HENT: Yes: Atraumatic, Normocephalic Neck: Yes: Supple, Trachea Midline Cardiovascular: Yes: Regular Rate and Rhythm Respiratory: Yes: Diminished breath sounds at the bases ...Clubbing: No Gastrointestinal: Yes: Normal Bowel Sounds, Soft. No: Tenderness Edema: No Neurological: Yes: Alert, Oriented Labs: Laboratory Results - last 24 hr 07/08/19 07/11/19 07/11/19 09:02 07:30 07:30 WBC 4.7 RBC 4.89 Hgb 15.2 Hct 44.4 MCV 90.8 MCH 31.0 MCHC 34.2 RDW 13.4 Plt Count 285 MPV 7.4 L Absolute Neuts (auto) 2.1 Neutrophils % 43.4 Lymphocytes % 40.3 H Monocytes % 10.9 H Eosinophils % 5.0 H Basophils % 0.4 Nucleated RBC % 0 PT with INR 13.10 H INR 1.11 H PTT (Actin FS) 40.8 H TB Test (QFT) Nil 1.03 TB Test (QFT) Mitogen >10.00 TB Test (QFT) Antigen 4.15 TB Test (QFT) Positive H TB Positive Criteria Problem List - Problems (1) HIV (human immunodeficiency virus infection) Code(s): B20 - HUMAN IMMUNODEFICIENCY VIRUS [HIV] DISEASE Qualifiers: HIV symptom status: asymptomatic Qualified Code(s): Z21 - Asymptomatic human immunodeficiency virus [HIV] infection status (2) Mediastinal mass Code(s): J98.59 - OTHER DISEASES OF MEDIASTINUM, NOT ELSEWHERE CLASSIFIED (3) Pleural effusion Code(s): J90 - PLEURAL EFFUSION, NOT ELSEWHERE CLASSIFIED Assessment/Plan Anterior Mediastinal Mass Left Pleural Effusion HIV Smoker Polysubstance Abuse R/O Lymphoma History of (+) PPD - For LN sampling per IR today - smoking cessation discussed - pain control - DVT prophylaxis Dr Mccormack
[2019-07-11 10:23] LABS: BLOOD UREA NITROGEN 20.4 mg/dL (7-18); CALCIUM 9.1 mg/dL (8.5-10.1); CREATININE 1.2 mg/dL (0.55-1.3); POTASSIUM 4.6 mmol/L (3.5-5.1)
[2019-07-11] MEDS ORDERED: PT OWN MED DRAWER 7, Y5N ONE (12:41)
[2019-07-11] MEDS: EMTRICITAB/RILPIVIRI/TENOF ALA (ODEFSEY) TABLET PO SCH (12:47)
[2019-07-11] MEDS: VENLAFAXINE HCL 75 MG E.R. CAPSULES (FP) PO SCH (12:47)
[2019-07-11] MEDS: DOCUSATE SODIUM 100 MG CAPSULE (FP) PO SCH ×2 (12:48→21:01)
[2019-07-11 15:07] LABS: BODY FLUID ALBUMIN 3.1 g/dL (Not Estab.)
--- NOTE | 2019-07-11 15:22 | PATH ---
Cytology Non-Gynecological Report Patient Name: RICARDO LUNA Med. Rec. #: [id number] /Age/Gender: 1965 (Age: 54) / M Account: [id number] Location: [facility]/SURG Taken: 07/09/2019 Received: 07/10/2019 Reported: 07/11/2019 Physicians: Darcie Young M.D. Specimen(s) Received PLEURAL FLUID Clinical History Pleural effusion, lymphadenopathy Final Diagnosis PLEURAL FLUID FOR CYTOLOGY: SATISFACTORY FOR EVALUATION. LYMPHOID-RICH EFFUSION. SEE COMMENT. Comment: Predominantly small lymphocytes with subset showing mild nuclear irregularities, cannot exclude a lymphoproliferative disorder in this material. Rare mesothelial cells noted. Suggest clinical/radiological correlation. See concurrent materials ([id number] and [id number]). Case discussed with Dr. Young. Electronically Signed Abimbola Valencia M.D. Gross Description Approximately 40 cc of yellow fluid received in 50% alcohol. One cytofunnel prepared and Pap stained. One cellblock prepared.
--- NOTE | 2019-07-11 15:34 | PN ---
Progress Note (short form) - Note Progress Note: constipation-nop bm for 4 days pain is better controlled s/p thoracentesis s/p LN biopsy today (axillary) Vital Signs Period Temp Pulse Resp BP Sys/Abel Pulse Ox Last 24 Hr 98.2 F-98.7 F 78-96 18-20 122-137/64-89 96-98 cor-rrr lungs decreased bs at bases abd soft,nt ext no edema CBC, BMP 07/11/19 07:30 07/11/19 07:30 Microbiology 07/08/19 18:30 Sputum - Expectorated Gram Stain - Final 07/08/19 18:30 Sputum - Expectorated Sputum Culture - Final NORMAL RESPIRATORY DARVIN 07/09/19 14:43 Pleural Fluid Gram Stain - Final 07/09/19 14:43 Pleural Fluid Body Fluid Culture - Preliminary NO AEROBIC GROWTH, 24 HRS 07/09/19 14:43 Pleural Fluid AFB Smear Concentration - Final 07/09/19 14:43 Pleural Fluid Mycobacterial Culture - Preliminary 07/09/19 14:43 Pleural Fluid JOE Preparation - Preliminary 07/09/19 14:43 Pleural Fluid Fungal Culture - Preliminary 07/08/19 18:30 Urine For Antigen Detection Legionella Antigen - Final 07/08/19 18:30 Urine For Antigen Detection Streptococcus pneumoniae Antigen (M - Final 07/06/19 02:30 Urine - Urine Clean Catch Urine Culture - Final NO GROWTH OBTAINED a/p mediastinal mass-suspected malignancy left pleural effusion-s/p thoracentesis- awaiting cytology, cultures sent stable HIV chronic hep B prior history of +PPD- treated with INH for 6 months- this could explain his positive quantiferon when he has biopsy-please send tissue for afb smear/pcr and culture as well as pathology constipation-on senna, add miralax continue [facility] Problem List - Problems (1) HIV (human immunodeficiency virus infection) Code(s): B20 - HUMAN IMMUNODEFICIENCY VIRUS [HIV] DISEASE Qualifiers: HIV symptom status: asymptomatic Qualified Code(s): Z21 - Asymptomatic human immunodeficiency virus [HIV] infection status (2) Mediastinal mass Code(s): J98.59 - OTHER DISEASES OF MEDIASTINUM, NOT ELSEWHERE CLASSIFIED (3) Pleural effusion Code(s): J90 - PLEURAL EFFUSION, NOT ELSEWHERE CLASSIFIED (4) Hep B w/o coma Code(s): B19.10 - UNSPECIFIED VIRAL HEPATITIS B WITHOUT HEPATIC COMA (5) Crack cocaine use Code(s): F14.90 - COCAINE USE, UNSPECIFIED, UNCOMPLICATED
[2019-07-11] MEDS: POLYETHYLENE GLYCOL 3350 119 GM BTL PO SCH (18:13)
[2019-07-11] MEDS: SENNOSIDES 8.6MG TABLET (FP) PO SCH (21:01)
[2019-07-11] MEDS: ATORVASTATIN CA 10 MG TABLET (FP) PO SCH (21:01)
[2019-07-11] MEDS: QUEtiapine FUMARATE 100 MG TABLET (FP) PO SCH (21:01)
--- NOTE | 2019-07-11 21:57 | PN ---
Progress Note (short form) - Note Progress Note: HPI: No events today. Pt for IR biopsy. No other complaints today PE: GEN: NAD, awake, alert, oriented x3 HEENT: NC/AT, PATRICIA, no conjunctival pallor, MMM LUNG: CTA b/l no wheezes CARD: RRR no murmurs ABD: soft, Nt/ND, normoactive BS EXT: no edema, distal pulses intact b/l CBC, BMP 07/11/19 07:30 07/11/19 07:30 Microbiology 07/08/19 18:30 Sputum - Expectorated Gram Stain - Final 07/08/19 18:30 Sputum - Expectorated Sputum Culture - Final NORMAL RESPIRATORY DARVIN 07/09/19 14:43 Pleural Fluid Gram Stain - Final 07/09/19 14:43 Pleural Fluid Body Fluid Culture - Preliminary NO AEROBIC GROWTH, 24 HRS 07/09/19 14:43 Pleural Fluid AFB Smear Concentration - Final 07/09/19 14:43 Pleural Fluid Mycobacterial Culture - Preliminary 07/09/19 14:43 Pleural Fluid JOE Preparation - Preliminary 07/09/19 14:43 Pleural Fluid Fungal Culture - Preliminary 07/08/19 18:30 Urine For Antigen Detection Legionella Antigen - Final 07/08/19 18:30 Urine For Antigen Detection Streptococcus pneumoniae Antigen (M - Final 07/06/19 02:30 Urine - Urine Clean Catch Urine Culture - Final NO GROWTH OBTAINED Active Medications Acetaminophen (Tylenol -) 325 mg PO Q4H PRN PRN Reason: PAIN Last Admin: 07/11/19 21:02 Dose: 325 mg Atorvastatin Calcium (Lipitor -) 10 mg PO HS [facility] Last Admin: 07/11/19 21:01 Dose: 10 mg Docusate Sodium (Colace -) 100 mg PO BID [facility] Last Admin: 07/11/19 21:01 Dose: 100 mg Oxycodone HCl (Roxicodone -) 10 mg PO Q4H PRN PRN Reason: PAIN LEVEL 7 - 10 Last Admin: 07/11/19 21:02 Dose: 10 mg Polyethylene Glycol (Miralax (For Daily Use) -) 17 gm PO DAILY [facility] Last Admin: 07/11/19 18:13 Dose: 17 gm Quetiapine Fumarate (Seroquel -) 100 mg PO HS [facility] Last Admin: 07/11/19 21:01 Dose: 100 mg Senna (Senna -) 2 tab PO HS [facility] Last Admin: 07/11/19 21:01 Dose: 2 tab Venlafaxine HCl (Effexor Xr -) 75 mg PO DAILY@1200 [facility] Last Admin: 07/11/19 12:47 Dose: 75 mg Assessment and Plan: Mediastinal mass with L pleural effusion History of HIV Polysubstance abuse Mood disorder History HLD --Continue Percocet 5-325 and 10-650 PRN per pain scale --Pt for IR mediastinal mass biopsy today --Tissue samples sent --Pleural fluid studies still pending; expected to complete today --Continue pt's HIV medications --Continue Seroquel 100mg HS and Effexor 75mg qdaily --Continue Lipitor 10mg HS --appreciated all consultations recommendations FEN: Fluids: PO only Electrolyte abnormalities: none today Nutrition: NPO until after procedure --> Regular PPX: DVT - Holding Lovenox for procedure GI - Not indicated currently Dispo: Continue monitoring Case discussed with Dr. Cristofer Casas, - IM PGy-3 <Shon Casas - Last Filed: 07/11/19 21:55> - Note Progress Note: Seen and examined; no new complaints. Discussed with resident. Personally reviewed all labs and imaging. Discussed with patient at length regarding diagnostic workup and exectations of care. He is doing well and is anticipating his biopsy. Discussed with subspecialty services. Discussed with resident team at length regarding HIV and EBV association. 45 minutes spent in the ongoing care of this patient including time spent in face to face counseling No new complaints; constipation noted. 10 sys ROS done and negative aside from HPI VS labs and imaging reviewed NAD AAO RESTING IN BED RRR S1/2 NT ND -BS CN2-12 WNL, NO FND NORMAL MOOD, APPROPRIATE BEHAVIOR TEMPORAL WASTING NOTED ASSESSMENT/PLAN: Seen and examined; problems include: Mediastinal mass with L pleural effusion History of HIV Polysubstance abuse Mood disorder History HLD Continue antimicrobials per ID and followup with [facility] on DC; monitor CBC and lytes and continue current meds. Will need bx and thora; will coordinate with subspecialty consults No consistent studies with active TB; this is all old and he gave consistent history Monitor for oncologic workup Seen before and after biopsy and in good spirits. Bandagign c/d/i post proceduraly. Pain controlled pathology pending. <Colin Cleveland - Last Filed: 07/11/19 23:47>
[2019-07-12] MEDS: oxyCODONE HCL 5 MG TABLET PO PRN ×4 (04:10→21:09)
[2019-07-12] MEDS: ACETAMINOPHEN 325 MG TABLET (FP) PO PRN ×4 (04:11→21:10)
[2019-07-12 07:19] LABS: HEMOGLOBIN 14.1 GM/dL (11.7-16.9); MCH 31.2 pg (25.7-33.7); MCHC 34.5 g/dl (32.0-35.9); MEAN CELL VOLUME 90.3 fl (80-96); MEAN PLT VOLUME 7.3 fl (7.5-11.1); PLATELET COUNT 295 K/MM3 (134-434); RBC 4.54 M/mm3 (4.00-5.60); RDW 13.1 % (11.9-15.9); WHITE BLOOD COUNT 5.7 K/mm3 (4.0-10.0)
[2019-07-12 07:45] LABS: BLOOD UREA NITROGEN 22.1 mg/dL (7-18); CALCIUM 8.4 mg/dL (8.5-10.1); CREATININE 1.3 mg/dL (0.55-1.3); POTASSIUM 4.4 mmol/L (3.5-5.1)
[2019-07-12] MEDS: DOCUSATE SODIUM 100 MG CAPSULE (FP) PO SCH ×2 (09:59→21:09)
[2019-07-12] MEDS: MAGNESIUM HYDROX 2400MG/30ML ORAL SUSPENSION 30 ML CUP PO PRN ×2 (10:01→21:09)
[2019-07-12] MEDS: POLYETHYLENE GLYCOL 3350 119 GM BTL PO SCH (10:02)
[2019-07-12] MEDS: EMTRICITAB/RILPIVIRI/TENOF ALA (ODEFSEY) TABLET PO SCH (10:02)
--- NOTE | 2019-07-12 10:02 | PN ---
Progress Note (short form) - Note Progress Note: Hematology and oncology follow up Subjective: Patient seen and examined at bedside. No events overnight. Pain now controlled. Objective: Vital Signs Temperature 98.3 F 07/12/19 05:30 Pulse Rate 83 07/12/19 05:30 Respiratory Rate 20 07/12/19 05:30 Blood Pressure 123/70 07/12/19 05:30 O2 Sat by Pulse Oximetry (%) 95 07/11/19 22:00 Active Medications Acetaminophen (Tylenol -) 325 mg PO Q4H PRN PRN Reason: PAIN Last Admin: 07/12/19 04:11 Dose: 325 mg Atorvastatin Calcium (Lipitor -) 10 mg PO [facility] Last Admin: 07/11/19 21:01 Dose: 10 mg Docusate Sodium (Colace -) 100 mg PO BID [facility] Last Admin: 07/11/19 21:01 Dose: 100 mg Magnesium Hydroxide (Milk Of Magnesia -) 30 ml PO Q8H PRN PRN Reason: INDIGESTION Oxycodone HCl (Roxicodone -) 10 mg PO Q4H PRN PRN Reason: PAIN LEVEL 7 - 10 Last Admin: 07/12/19 04:10 Dose: 10 mg Polyethylene Glycol (Miralax (For Daily Use) -) 17 gm PO DAILY [facility] Last Admin: 07/11/19 18:13 Dose: 17 gm Quetiapine Fumarate (Seroquel -) 100 mg PO [facility] Last Admin: 07/11/19 21:01 Dose: 100 mg Senna (Senna -) 2 tab PO [facility] Last Admin: 07/11/19 21:01 Dose: 2 tab Venlafaxine HCl (Effexor Xr -) 75 mg PO DAILY@1200 [facility] Last Admin: 07/11/19 12:47 Dose: 75 mg Home Medications Medication Instructions Recorded Multivitamin,Ther and Minerals 1 each PO DAILY 02/25/19 [Vitamin and Minerals] Pravastatin Sodium [Pravachol -] 20 mg PO HS 02/25/19 Emtricitab/Rilpiviri/Tenof Ala 1 each PO DAILY #30 tablet 04/11/19 [Odefsey Tablet] Quetiapine Fumarate [Seroquel -] 100 mg PO HS #30 tablet 06/19/19 Polyethylene Glycol 3350 [Miralax 17 gm PO DAILY PRN #1 bottle 06/26/19 (For Daily Use) -] Venlafaxine HCl ER [Effexor Xr -] 75 mg PO DAILY #30 cap.er.24h 06/26/19 Allergies Allergy/AdvReac Type Severity Reaction Status Date / Time No Known Allergies Allergy Verified 02/25/19 10:47 CBC, BMP 07/12/19 06:25 07/12/19 06:25 Assessment and plan: The patient is a 54 y/o m w/ PMH HIV, HEB B, polysubstance abuse who presents with left rib pain. A CT of the chest showed a large anterior mediastinum mass along with multiple pulmonary nodules. #Mediastinal mass and nodules -concerning for malignancy -patient will require biopsy to better diagnose mass -s/p IR guided thoracentesis; awaiting cytometry results -s/p IR guided core biopsy of axillary LN; awaiting path results. -monitor coags daily -Patient may require further Bx of mediastinal mass if LN biopsy inconclusive
[2019-07-12] MEDS: VENLAFAXINE HCL 75 MG E.R. CAPSULES (FP) PO SCH (13:07)
--- NOTE | 2019-07-12 19:46 | PN ---
Progress Note (short form) - Note Progress Note: HPI: No events today. Pt went for LN biopsy due to elevated aPTT. Pathology sent and awaiting prelim reports. Pt without any complaints today. PE: GEN: NAD, awake, alert, oriented x3 HEENT: NC/AT, PATRICIA, no conjunctival pallor, MMM CHEST: LN biopsy site C/D/I LUNG: CTA b/l no wheezes CARD: RRR no murmurs ABD: soft, Nt/ND, normoactive BS EXT: no edema, distal pulses intact b/l CBC, BMP 07/12/19 06:25 07/12/19 06:25 Microbiology 07/09/19 14:43 Pleural Fluid Gram Stain - Final 07/09/19 14:43 Pleural Fluid Body Fluid Culture - Final NO GROWTH OF AEROBIC ORGANISMS AFTER 48 HOURS INCUBATION 07/09/19 14:43 Pleural Fluid Anaerobic Culture - Final NO ANAEROBES WERE ISOLATED 07/08/19 18:30 Sputum - Expectorated Gram Stain - Final 07/08/19 18:30 Sputum - Expectorated Sputum Culture - Final NORMAL RESPIRATORY DARVIN 07/09/19 14:43 Pleural Fluid AFB Smear Concentration - Final 07/09/19 14:43 Pleural Fluid Mycobacterial Culture - Preliminary 07/09/19 14:43 Pleural Fluid JOE Preparation - Preliminary 07/09/19 14:43 Pleural Fluid Fungal Culture - Preliminary 07/08/19 18:30 Urine For Antigen Detection Legionella Antigen - Final 07/08/19 18:30 Urine For Antigen Detection Streptococcus pneumoniae Antigen (M - Final 07/06/19 02:30 Urine - Urine Clean Catch Urine Culture - Final NO GROWTH OBTAINED Active Medications Acetaminophen (Tylenol -) 325 mg PO Q4H PRN PRN Reason: PAIN Last Admin: 07/12/19 17:18 Dose: 325 mg Atorvastatin Calcium (Lipitor -) 10 mg PO HS [facility] Last Admin: 07/11/19 21:01 Dose: 10 mg Docusate Sodium (Colace -) 100 mg PO BID [facility] Last Admin: 07/12/19 09:59 Dose: 100 mg Magnesium Hydroxide (Milk Of Magnesia -) 30 ml PO Q8H PRN PRN Reason: INDIGESTION Last Admin: 07/12/19 10:01 Dose: 30 ml Oxycodone HCl (Roxicodone -) 10 mg PO Q4H PRN PRN Reason: PAIN LEVEL 7 - 10 Last Admin: 07/12/19 17:17 Dose: 10 mg Polyethylene Glycol (Miralax (For Daily Use) -) 17 gm PO DAILY [facility] Last Admin: 07/12/19 10:02 Dose: 17 gm Quetiapine Fumarate (Seroquel -) 100 mg PO HS [facility] Last Admin: 07/11/19 21:01 Dose: 100 mg Senna (Senna -) 2 tab PO HS [facility] Last Admin: 07/11/19 21:01 Dose: 2 tab Venlafaxine HCl (Effexor Xr -) 75 mg PO DAILY@1200 [facility] Last Admin: 07/12/19 13:07 Dose: 75 mg Assessment and Plan: Mediastinal mass with L pleural effusion History of HIV Polysubstance abuse Mood disorder History HLD --Continue Percocet 5-325 and 10-650 PRN per pain scale --Pt's --Tissue samples sent --Pleural fluid studies still pending; expected to complete today --Continue pt's HIV medications --Continue Seroquel 100mg HS and Effexor 75mg qdaily --Continue Lipitor 10mg HS --appreciated all consultations recommendations FEN: Fluids: PO only Electrolyte abnormalities: none today Nutrition: NPO until after procedure --> Regular PPX: DVT - Holding Lovenox for procedure GI - Not indicated currently Dispo: Continue monitoring Case discussed with Dr. Cristofer Casas, DO - IM PGy-3 <Shon Casas - Last Filed: 07/12/19 21:13> - Note Progress Note: Seen and examined; no new complaints. Discussed with resident. Personally reviewed all labs and imaging. Discussed with patient at length regarding diagnostic workup and exectations of care. He is doing well and is anticipating his biopsy. Discussed with subspecialty services. No new complaints; constipation noted again. D/w resident team regarding PRN lactulose 10 sys ROS done and negative aside from HPI VS labs and imaging reviewed NAD AAO RESTING IN BED RRR S1/2 NT ND -BS CN2-12 WNL, NO FND NORMAL MOOD, APPROPRIATE BEHAVIOR TEMPORAL WASTING NOTED ASSESSMENT/PLAN: Seen and examined; problems include: Mediastinal mass with L pleural effusion History of HIV Polysubstance abuse Mood disorder History HLD Followup biopsy results, aggressive electrolyte replacement, followup EBV titers. Followup pleural fluid complete studies and cytology. No consistent studies with active TB; this is all old and he gave consistent history Full Code <Colin Cleveland - Last Filed: 07/13/19 09:32>
--- NOTE | 2019-07-12 20:21 | PN ---
Progress Note (short form) - Note Progress Note: Patient seen and examined Left chest pain. also numbness in left chest wall AFVSS Cor: RSR, No murmurs, No gallops Lungs: decreased breath sounds left lung base Abd: Soft, Normal bowel sounds, No organomegaly Ext:No significant edema Labs/Meds reviewed A/P 54 y/o patient with HIV, anterior mediastinal mass, axillary adenopathy, left pleural effusion s/p pleural fluid drainage s/p axillary node biopsy awaiting pathology Clinical scenario suspicious for lymphoma LDH 461 pain control/laxatives check CT T/L spine Elevated PTT--await mixing study/antiphospholipid panel May need mediastinal node bx depending on path results , if not conclusive discussed with patient
--- NOTE | 2019-07-12 20:28 | PN ---
Progress Note (short form) - Note Progress Note: Patient seen and examined Left chest pain. also numbness in left chest wall Last Vital Signs Temp Pulse Resp BP Pulse Ox 99.4 F 91 H 20 129/82 98 07/12/19 16:44 07/12/19 16:44 07/12/19 16:44 07/12/19 16:44 07/12/19 09:00 Heart--, No murmurs, No gallops Lungs: decreased breath sounds left lung base Abd: Soft, Normal bowel sounds, No organomegaly Ext:No significant edema Abnormal Lab Results 07/10/19 07/11/19 07/12/19 07:28 12:15 06:25 MPV 7.3 L Anion Gap BUN Calcium Iubc-2-Ayjdoxagrugj Ab >150 H EBV Nuclear Antigen 388.0 H 07/12/19 06:25 MPV Anion Gap 6 L BUN 22.1 H Calcium 8.4 L Xjlz-3-Mezcxjiwmdeh Ab EBV Nuclear Antigen Active Medications Generic Name Dose Route Start Last Admin Trade Name Freq PRN Reason Stop Dose Admin Acetaminophen 325 mg 07/09/19 22:13 07/12/19 17:18 Tylenol - PO 325 mg Q4H PRN Administration PAIN Atorvastatin Calcium 10 mg 07/08/19 22:00 07/11/19 21:01 Lipitor - PO 10 mg HS [facility] Administration Docusate Sodium 100 mg 07/08/19 12:30 07/12/19 09:59 Colace - PO 100 mg BID [facility] Administration Magnesium Hydroxide 30 ml 07/12/19 07:35 07/12/19 10:01 Milk Of Magnesia - PO 30 ml Q8H PRN Administration INDIGESTION Oxycodone HCl 10 mg 07/08/19 21:26 07/12/19 17:17 Roxicodone - PO 10 mg Q4H PRN Administration PAIN LEVEL 7 - 10 Polyethylene Glycol 17 gm 07/11/19 15:45 07/12/19 10:02 Miralax (For Daily Use) - PO 17 gm DAILY [facility] Administration Quetiapine Fumarate 100 mg 07/06/19 22:00 07/11/19 21:01 Seroquel - PO 100 mg HS [facility] Administration Senna 2 tab 07/08/19 22:00 07/11/19 21:01 Senna - PO 2 tab HS [facility] Administration Venlafaxine HCl 75 mg 07/09/19 12:00 07/12/19 13:07 Effexor Xr - PO 75 mg DAILY@1200 [facility] Administration A/P 54 y/o patient with HIV, anterior mediastinal mass, axillary adenopathy, left pleural effusion s/p pleural fluid drainage s/p axillary node biopsy awaiting pathology Clinical scenario suspicious for lymphoma LDH 461 pain control/laxatives--increase oxycodone to 15mg Q 4hrs. prn f/u CT T/L spine Elevated PTT--mixing study normal/antiphospholipid panel s/o elevated B2 glycoprotein Ig A --could be the cause of elevated PTT May need mediastinal node bx depending on path results , if not conclusive would consider allopurinol/ gentle hydration
[2019-07-12] MEDS: ATORVASTATIN CA 10 MG TABLET (FP) PO SCH (21:09)
[2019-07-12] MEDS: QUEtiapine FUMARATE 100 MG TABLET (FP) PO SCH (21:09)
[2019-07-12] MEDS: SENNOSIDES 8.6MG TABLET (FP) PO SCH (21:09)
[2019-07-13] MEDS: oxyCODONE HCL 5 MG TABLET PO PRN ×5 (01:07→20:16)
[2019-07-13] MEDS: ACETAMINOPHEN 325 MG TABLET (FP) PO PRN ×4 (01:08→20:19)
[2019-07-13 07:56] LABS: HEMATOCRIT 41.8 % (35.4-49); MCH 32.9 pg (25.7-33.7); MCHC 35.8 g/dl (32.0-35.9); MEAN CELL VOLUME 91.7 fl (80-96); MEAN PLT VOLUME 7.5 fl (7.5-11.1); PLATELET COUNT 293 K/MM3 (134-434); RBC 4.56 M/mm3 (4.00-5.60); RDW 13.2 % (11.9-15.9)
[2019-07-13 08:24] LABS: BLOOD UREA NITROGEN 17.5 mg/dL (7-18); CALCIUM 8.9 mg/dL (8.5-10.1); CREATININE 1.2 mg/dL (0.55-1.3); POTASSIUM 4.4 mmol/L (3.5-5.1); URIC ACID 7.8 mg/dL (2.6-7.2)
--- NOTE | 2019-07-13 09:31 | PN ---
Physical Exam: SUBJECTIVE: Patient seen and examined; EBV titers are high. No new complaints. Neuropathic pain stable. C/o constupation but no s/s SBO. No fanta chest pain , SOB, dysuria. Starting gentle hydration and allopurinol. 10 sys ROS done and negative aside from HPI OBJECTIVE: Vital Signs Period Temp Pulse Resp BP Sys/Abel Pulse Ox Last 24 Hr 98.1 F-99.4 F 87-96 18-20 105-137/71-85 GENERAL: The patient is awake, alert, and fully oriented, in no acute distress. HEAD: Normal with no signs of trauma. EYES: PERRL, extraocular movements intact, sclera anicteric, conjunctiva clear. No ptosis. ENT: Ears normal, nares patent, oropharynx clear without exudates, moist mucous membranes. NECK: Trachea midline, full range of motion, supple. LUNGS: Breath sounds equal, clear to auscultation bilaterally, no wheezes, no crackles, no accessory muscle use. HEART: Regular rate and rhythm, S1, S2 without murmur, rub or gallop. ABDOMEN: Soft, nontender, nondistended, normoactive bowel sounds, no guarding, no rebound, no hepatosplenomegaly, no masses. EXTREMITIES: 2+ pulses, warm, well-perfused, no edema. NEUROLOGICAL: Cranial nerves II through XII grossly intact. Normal speech, gait not observed. PSYCH: Normal mood, normal affect. SKIN: Warm, dry, normal turgor, no rashes or lesions noted Laboratory Results - last 24 hr 07/09/19 07/09/19 07/10/19 07:00 14:43 07:28 WBC RBC Hgb Hct MCV MCH MCHC RDW Plt Count MPV PTT (Actin FS) Saline-Adjusted PTT TNP PTT Patient/Cntrl Mix 29.7 PTT Normal Plasma Pre 29.3 Sodium Potassium Chloride Carbon Dioxide Anion Gap BUN Creatinine Est GFR (CKD-EPI)AfAm Est GFR (CKD-EPI)NonAf Random Glucose Uric Acid Calcium LD Total Nvfe-2-Fqljdwkuflmy <9 Fluid Cholesterol 84 Xqtj-9-Gcygskvluwpp Ab >150 H Beta-2-GPI IgM Ab <9 EBV Nuclear Antigen 07/11/19 07/13/19 07/13/19 12:15 06:25 06:25 WBC 5.0 RBC 4.56 Hgb 15.0 Hct 41.8 MCV 91.7 MCH 32.9 MCHC 35.8 RDW 13.2 Plt Count 293 MPV 7.5 PTT (Actin FS) Saline-Adjusted PTT PTT Patient/Cntrl Mix PTT Normal Plasma Pre Sodium 135 L Potassium 4.4 Chloride 99 Carbon Dioxide 31 Anion Gap 4 L BUN 17.5 Creatinine 1.2 Est GFR (CKD-EPI)AfAm 78.43 Est GFR (CKD-EPI)NonAf 67.67 Random Glucose 98 Uric Acid 7.8 H Calcium 8.9 LD Total 489 H Qmdl-8-Svwjmveuknic Fluid Cholesterol Hnmh-0-Izdcesfsaxhd Ab Beta-2-GPI IgM Ab EBV Nuclear Antigen 388.0 H 07/13/19 06:25 WBC RBC Hgb Hct MCV MCH MCHC RDW Plt Count MPV PTT (Actin FS) 43.6 H Saline-Adjusted PTT PTT Patient/Cntrl Mix PTT Normal Plasma Pre Sodium Potassium Chloride Carbon Dioxide Anion Gap BUN Creatinine Est GFR (CKD-EPI)AfAm Est GFR (CKD-EPI)NonAf Random Glucose Uric Acid Calcium LD Total Asqf-9-Jsfelzfmldrb Fluid Cholesterol Hyrg-7-Mndzlewhfadr Ab Beta-2-GPI IgM Ab EBV Nuclear Antigen Active Medications Generic Name Dose Route Start Last Admin Trade Name Freq PRN Reason Stop Dose Admin Acetaminophen 325 mg 07/09/19 22:13 07/13/19 06:13 Tylenol - PO 325 mg Q4H PRN Administration PAIN Atorvastatin Calcium 10 mg 07/08/19 22:00 07/12/19 21:09 Lipitor - PO 10 mg HS [facility] Administration Docusate Sodium 100 mg 07/08/19 12:30 07/12/19 21:09 Colace - PO 100 mg BID [facility] Administration Magnesium Hydroxide 30 ml 07/12/19 07:35 07/12/19 21:09 Milk Of Magnesia - PO 30 ml Q8H PRN Administration INDIGESTION Oxycodone HCl 15 mg 07/12/19 21:42 07/13/19 06:12 Roxicodone - PO 15 mg Q4H PRN Administration PAIN LEVEL 7 - 10 Polyethylene Glycol 17 gm 07/11/19 15:45 07/12/19 10:02 Miralax (For Daily Use) - PO 17 gm DAILY [facility] Administration Quetiapine Fumarate 100 mg 07/06/19 22:00 07/12/19 21:09 Seroquel - PO 100 mg HS [facility] Administration Senna 2 tab 07/08/19 22:00 07/12/19 21:09 Senna - PO 2 tab HS [facility] Administration Venlafaxine HCl 75 mg 07/09/19 12:00 07/12/19 13:07 Effexor Xr - PO 75 mg DAILY@1200 [facility] Administration ASSESSMENT/PLAN: Seen and examined; problems include: -Mediastinal mass with L pleural effusion s/p thoracentesis and axilary LN bx *Awaiting pathology; may need bx of the mediastinal mass to get tissue diagnosis. Starting allopurinol and gentle hydration per heme; uric acid level ordered -Elevated LDH *Repeat on Monday, monitor CBC -Elevated PTT *Normal mixing study, elevated B2GP IgA could be associated with cause; FU with heme recs. -History of HIV *Continue with recommendations as per Infectious Disease. -Polysubstance abuse *Offer continued followup and support -Mood disorder *Continue venlafaxine -History HLD -Neuropathic UE pain *Starting gabapentin 100mg PO QD, increased oxycodone -Constipation *Lactulose today; may start agent for OIC in AM if no BM. Consider AXR if constipation continues. Followup biopsy results, aggressive electrolyte replacement, followup EBV titers. Followup pleural fluid complete studies and cytology. No consistent studies with active TB; this is all old and he gave consistent history Visit type - Emergency Visit Emergency Visit: Yes ED Registration Date: 07/06/19 Care time: The patient presented to the Emergency Department on the above date and was hospitalized for further evaluation of their emergent condition. - New Patient This patient is new to me today: No - Critical Care Critical Care patient: No
[2019-07-13] MEDS ORDERED: LACTULOSE 20 GM/30 ML UDC (FOR ORAL USE ONLY) PO ONE (09:38)
[2019-07-13] MEDS ORDERED: PT OWN MED DRAWER 7, Y5N ONE (09:52)
[2019-07-13] MEDS: DOCUSATE SODIUM 100 MG CAPSULE (FP) PO SCH ×2 (09:58→22:13)
[2019-07-13] MEDS: GABAPENTIN 100 MG CAPSULE (FP) PO SCH (09:58)
[2019-07-13] MEDS: POLYETHYLENE GLYCOL 3350 119 GM BTL PO SCH (09:59)
[2019-07-13] MEDS: ALLOPURINOL 100 MG TABLET (FP) PO SCH ×2 (09:59→22:13)
[2019-07-13 10:07] LABS: DRVVT - 47.9 sec (0.0-47.0); HEXAGONAL PHASE PHOSPHOLIPID 0 sec (0-11); dRVVT MIX 42.5 sec (0.0-47.0)
[2019-07-13] MEDS: EMTRICITAB/RILPIVIRI/TENOF ALA (ODEFSEY) TABLET PO SCH (11:25)
[2019-07-13] MEDS: LACTATED RINGERS SOLUTION 1,000 ML/1,000 ML INFUS.BAG IV SCH (11:25)
[2019-07-13] MEDS: VENLAFAXINE HCL 75 MG E.R. CAPSULES (FP) PO SCH (14:32)
--- NOTE | 2019-07-13 18:20 | PN ---
Progress Note (short form) - Note Progress Note: Progress Note (short form) - Note Progress Note: Patient seen and examined Reporting pain in Left Flank/Abdominal region Last Vital Signs Temp Pulse Resp BP Pulse Ox 98.9 F 98 H 20 112/75 98 07/13/19 17:14 07/13/19 17:14 07/13/19 17:14 07/13/19 17:14 07/13/19 10:00 General: NAD Heart--, No murmurs, No gallops Lungs: decreased breath sounds left lung base Abd: fullness in Left flank, likely due to constipation Ext:No significant edema 07/13/19 06:25 07/13/19 06:25 Current Medications Generic Name Dose Route Start Last Admin Trade Name Freq PRN Reason Stop Dose Admin Acetaminophen 325 mg 07/09/19 22:13 07/13/19 16:44 Tylenol - PO 325 mg Q4H PRN Administration PAIN Allopurinol 200 mg 07/13/19 10:00 07/13/19 09:59 Zyloprim - PO 200 mg BID [facility] Administration Atorvastatin Calcium 10 mg 07/08/19 22:00 07/12/19 21:09 Lipitor - PO 10 mg HS [facility] Administration Docusate Sodium 100 mg 07/08/19 12:30 07/13/19 09:58 Colace - PO 100 mg BID [facility] Administration Gabapentin 100 mg 07/13/19 10:00 07/13/19 09:58 Neurontin - PO 100 mg DAILY [facility] Administration Lactated Ringer's 1,000 ml in 1,000 mls @ 75 mls/hr 07/13/19 09:45 07/13/19 11:25 Lactated Ringers Solution IV Not Given ASDIR [facility] Magnesium Hydroxide 30 ml 07/12/19 07:35 07/12/19 21:09 Milk Of Magnesia - PO 30 ml Q8H PRN Administration INDIGESTION Oxycodone HCl 15 mg 07/12/19 21:42 07/13/19 16:42 Roxicodone - PO 15 mg Q4H PRN Administration PAIN LEVEL 7 - 10 Polyethylene Glycol 17 gm 07/11/19 15:45 07/13/19 09:59 Miralax (For Daily Use) - PO 17 gm DAILY [facility] Administration Quetiapine Fumarate 100 mg 07/06/19 22:00 07/12/19 21:09 Seroquel - PO 100 mg HS [facility] Administration Senna 2 tab 07/08/19 22:00 07/12/19 21:09 Senna - PO 2 tab HS [facility] Administration Venlafaxine HCl 75 mg 07/09/19 12:00 07/13/19 14:32 Effexor Xr - PO 75 mg DAILY@1200 [facility] Administration A/P 54 y/o patient with HIV, anterior mediastinal mass, axillary adenopathy, left pleural effusion s/p pleural fluid drainage s/p axillary node biopsy awaiting pathology Clinical scenario suspicious for lymphoma LDH 461 pain control/laxatives--increase oxycodone to 15mg Q 4hrs. prn. Pain control still not adequate. Recommend pain service evaluation. Will consider oxycontin standing BID with standing bowel regimen f/u CT T/L spine Elevated PTT--mixing study normal/antiphospholipid panel s/o elevated B2 glycoprotein Ig A --could be the cause of elevated PTT May need mediastinal node bx depending on path results , if not conclusive would consider allopurinol/ gentle hydration
[2019-07-13] MEDS: QUEtiapine FUMARATE 100 MG TABLET (FP) PO SCH (22:13)
[2019-07-13] MEDS: SENNOSIDES 8.6MG TABLET (FP) PO SCH (22:13)
[2019-07-13] MEDS: oxyCODONE HCL 20 MG SUSTAINED ACTING TABLET PO SCH (22:13)
[2019-07-13] MEDS: ATORVASTATIN CA 10 MG TABLET (FP) PO SCH (22:13)
[2019-07-14] MEDS: ACETAMINOPHEN 325 MG TABLET (FP) PO PRN ×3 (01:38→17:44)
[2019-07-14] MEDS: oxyCODONE HCL 5 MG TABLET PO PRN ×3 (01:39→17:43)
[2019-07-14 07:37] LABS: BASO % 0.5 % (0-2.0); EOS % 4.4 % (0-4.5); HEMATOCRIT 39.8 % (35.4-49); HEMOGLOBIN 14.2 GM/dL (11.7-16.9); LYMPH % 31.2 % (8-40); MCH 32.4 pg (25.7-33.7); MCHC 35.7 g/dl (32.0-35.9); MEAN CELL VOLUME 90.7 fl (80-96); MEAN PLT VOLUME 7.9 fl (7.5-11.1); NEUT % 53.9 % (42.8-82.8); PLATELET COUNT 325 K/MM3 (134-434); RBC 4.38 M/mm3 (4.00-5.60); RDW 12.9 % (11.9-15.9); WHITE BLOOD COUNT 6.6 K/mm3 (4.0-10.0)
[2019-07-14] MEDS ORDERED: PT OWN MED DRAWER 7, Y5N ONE (10:31)
[2019-07-14] MEDS: GABAPENTIN 100 MG CAPSULE (FP) PO SCH (10:38)
[2019-07-14] MEDS: oxyCODONE HCL 20 MG SUSTAINED ACTING TABLET PO SCH ×2 (10:38→21:07)
[2019-07-14] MEDS: ALLOPURINOL 100 MG TABLET (FP) PO SCH ×2 (10:38→21:07)
[2019-07-14] MEDS: DOCUSATE SODIUM 100 MG CAPSULE (FP) PO SCH ×2 (10:39→21:07)
[2019-07-14] MEDS: EMTRICITAB/RILPIVIRI/TENOF ALA (ODEFSEY) TABLET PO SCH (10:39)
[2019-07-14] MEDS: POLYETHYLENE GLYCOL 3350 119 GM BTL PO SCH (10:45)
[2019-07-14] MEDS: VENLAFAXINE HCL 75 MG E.R. CAPSULES (FP) PO SCH (13:30)
--- NOTE | 2019-07-14 14:52 | PN ---
Physical Exam: SUBJECTIVE: Patient seen and examined He is c/o ch pain on his left side of abd /chest and it is moderate and he has biopsy and drainage done but still awaiting results OBJECTIVE: Vital Signs Period Temp Pulse Resp BP Sys/Abel Pulse Ox Last 24 Hr 97.9 F-98.9 F 88-101 20-20 112-123/63-85 98-98 GENERAL: The patient is awake, alert, and fully oriented, in no acute distress. HEAD: Normal with no signs of trauma. EYES: PERRL, extraocular movements intact, sclera anicteric, conjunctiva clear. No ptosis. ENT: Ears normal, nares patent, oropharynx clear without exudates, moist mucous membranes. NECK: Trachea midline, full range of motion, supple. LUNGS: Breath sounds equal, clear to auscultation bilaterally, no wheezes, no crackles, no accessory muscle use. HEART: Regular rate and rhythm, S1, S2 without murmur, rub or gallop. ABDOMEN: Soft, nontender, nondistended, normoactive bowel sounds, no guarding, no rebound, no hepatosplenomegaly, no masses. EXTREMITIES: 2+ pulses, warm, well-perfused, no edema. NEUROLOGICAL: Cranial nerves II through XII grossly intact. Normal speech, gait not observed. Laboratory Results - last 24 hr 07/14/19 05:54 WBC 6.6 RBC 4.38 Hgb 14.2 Hct 39.8 MCV 90.7 MCH 32.4 MCHC 35.7 RDW 12.9 Plt Count 325 MPV 7.9 Absolute Neuts (auto) 3.5 Neutrophils % 53.9 D Lymphocytes % 31.2 D Monocytes % 10.0 Eosinophils % 4.4 Basophils % 0.5 Nucleated RBC % 0 Active Medications Generic Name Dose Route Start Last Admin Trade Name Freq PRN Reason Stop Dose Admin Acetaminophen 325 mg 07/09/19 22:13 07/14/19 08:07 Tylenol - PO 325 mg Q4H PRN Administration PAIN Allopurinol 200 mg 07/13/19 10:00 07/14/19 10:38 Zyloprim - PO 200 mg BID ENOC Administration Atorvastatin Calcium 10 mg 07/08/19 22:00 07/13/19 22:13 Lipitor - PO 10 mg HS ENOC Administration Docusate Sodium 100 mg 07/08/19 12:30 07/14/19 10:39 Colace - PO 100 mg BID ENOC Administration Gabapentin 100 mg 07/13/19 10:00 07/14/19 10:38 Neurontin - PO 100 mg DAILY ENOC Administration Lactated Ringer's 1,000 ml in 1,000 mls @ 75 mls/hr 07/13/19 09:45 07/13/19 11:25 Lactated Ringers Solution IV Not Given ASDIR ENOC Magnesium Hydroxide 30 ml 07/12/19 07:35 07/12/19 21:09 Milk Of Magnesia - PO 30 ml Q8H PRN Administration INDIGESTION Oxycodone HCl 15 mg 07/12/19 21:42 07/14/19 08:07 Roxicodone - PO 15 mg Q4H PRN Administration PAIN LEVEL 7 - 10 Oxycodone HCl 20 mg 07/13/19 22:00 07/14/19 10:38 Oxycontin - PO 20 mg BID ENOC Administration Polyethylene Glycol 17 gm 07/11/19 15:45 07/14/19 10:45 Miralax (For Daily Use) - PO 17 gm DAILY ENOC Administration Quetiapine Fumarate 100 mg 07/06/19 22:00 07/13/19 22:13 Seroquel - PO 100 mg HS ENOC Administration Senna 2 tab 07/08/19 22:00 07/13/19 22:13 Senna - PO 2 tab HS ENOC Administration Venlafaxine HCl 75 mg 07/09/19 12:00 07/14/19 13:30 Effexor Xr - PO 75 mg DAILY@1200 ENOC Administration ASSESSMENT/PLAN: Mediastinal mass with L pleural effusion s/p thoracentesis and axilary LN bx *Awaiting pathology; may need bx of the mediastinal mass to get tissue diagnosis. Starting allopurinol and gentle hydration per heme; uric acid level ordered -Elevated LDH *Repeat on Monday, monitor CBC -Elevated PTT *Normal mixing study, elevated B2GP IgA could be associated with cause; FU with heme recs. -History of HIV *Continue with recommendations as per Infectious Disease. -Polysubstance abuse *Offer continued followup and support -Mood disorder *Continue venlafaxine -History HLD, stable -Neuropathic UE pain *Starting gabapentin 100mg PO QD, increased oxycodone -Constipation *Lactulose today; may start agent for OIC in AM if no BM. Consider AXR if constipation continues. Followup biopsy results, aggressive electrolyte replacement, followup EBV titers. Followup pleural fluid complete studies and cytology. Visit type - Emergency Visit Emergency Visit: Yes ED Registration Date: 07/06/19 Care time: The patient presented to the Emergency Department on the above date and was hospitalized for further evaluation of their emergent condition. - New Patient This patient is new to me today: No - Critical Care Critical Care patient: No - Discharge Referral Referred to [facility] Med P.C.: No
[2019-07-14] MEDS: LACTATED RINGERS SOLUTION 1,000 ML/1,000 ML INFUS.BAG IV SCH (15:41)
[2019-07-14] MEDS: MAGNESIUM HYDROX 2400MG/30ML ORAL SUSPENSION 30 ML CUP PO PRN (15:44)
--- NOTE | 2019-07-14 17:08 | PN ---
Progress Note (short form) - Note Progress Note: Progress Note (short form) - Note Progress Note: Patient seen and examined Still with pain and some shortness of breath. Last Vital Signs Temp Pulse Resp BP Pulse Ox 98.2 F 95 H 20 129/71 98 07/14/19 12:00 07/14/19 12:00 07/14/19 12:00 07/14/19 12:00 07/13/19 22:00 General: NAD Heart--, No murmurs, No gallops Lungs: decreased breath sounds left lung base Abd: fullness in Left flank, likely due to constipation Ext:No significant edema 07/14/19 05:54 07/13/19 06:25 Current Medications Generic Name Dose Route Start Last Admin Trade Name Freq PRN Reason Stop Dose Admin Acetaminophen 325 mg 07/09/19 22:13 07/14/19 08:07 Tylenol - PO 325 mg Q4H PRN Administration PAIN Allopurinol 200 mg 07/13/19 10:00 07/14/19 10:38 Zyloprim - PO 200 mg BID ENOC Administration Atorvastatin Calcium 10 mg 07/08/19 22:00 07/13/19 22:13 Lipitor - PO 10 mg HS ENOC Administration Docusate Sodium 100 mg 07/08/19 12:30 07/14/19 10:39 Colace - PO 100 mg BID ENOC Administration Gabapentin 100 mg 07/13/19 10:00 07/14/19 10:38 Neurontin - PO 100 mg DAILY ENOC Administration Lactated Ringer's 1,000 ml in 1,000 mls @ 75 mls/hr 07/13/19 09:45 07/14/19 15:41 Lactated Ringers Solution IV Not Given ASDIR ENOC Magnesium Hydroxide 30 ml 07/12/19 07:35 07/14/19 15:44 Milk Of Magnesia - PO 30 ml Q8H PRN Administration INDIGESTION Oxycodone HCl 15 mg 07/12/19 21:42 07/14/19 08:07 Roxicodone - PO 15 mg Q4H PRN Administration PAIN LEVEL 7 - 10 Oxycodone HCl 20 mg 07/13/19 22:00 07/14/19 10:38 Oxycontin - PO 20 mg BID ENOC Administration Polyethylene Glycol 17 gm 07/11/19 15:45 07/14/19 10:45 Miralax (For Daily Use) - PO 17 gm DAILY ENOC Administration Quetiapine Fumarate 100 mg 07/06/19 22:00 07/13/19 22:13 Seroquel - PO 100 mg HS ENOC Administration Senna 2 tab 07/08/19 22:00 07/13/19 22:13 Senna - PO 2 tab HS ENOC Administration Venlafaxine HCl 75 mg 07/09/19 12:00 07/14/19 13:30 Effexor Xr - PO 75 mg DAILY@1200 ENOC Administration A/P 54 y/o patient with HIV, anterior mediastinal mass, axillary adenopathy, left pleural effusion s/p pleural fluid drainage s/p axillary node biopsy awaiting pathology Clinical scenario suspicious for lymphoma LDH 484 pain control/laxatives--increase oxycodone to 15mg Q 4hrs. prn. Pain control still not adequate. Recommend pain service evaluation. Started Oxycodone Extended Release [address] T/L spine: No overt pathology. Bone abnormalities. Check PSA and Immunolobulin levels, SPEP, UPEP, FLC, Beta 2 micrglobulin. Elevated PTT--mixing study normal/antiphospholipid panel s/o elevated B2 glycoprotein Ig A --could be the cause of elevated PTT May need mediastinal node bx depending on path results , if not conclusive Allopurinol/ gentle hydration
[2019-07-14] MEDS: QUEtiapine FUMARATE 100 MG TABLET (FP) PO SCH (21:07)
[2019-07-14] MEDS: SENNOSIDES 8.6MG TABLET (FP) PO SCH (21:07)
[2019-07-14] MEDS: ATORVASTATIN CA 10 MG TABLET (FP) PO SCH (21:07)
[2019-07-15] MEDS: ACETAMINOPHEN 325 MG TABLET (FP) PO PRN ×2 (01:22→05:11)
[2019-07-15] MEDS: oxyCODONE HCL 5 MG TABLET PO PRN ×2 (01:22→05:11)
[2019-07-15 07:08] VITALS: BP 136/81; PULSE 89; TEMP 98.4
[2019-07-15 08:22] LABS: CREATININE 1.3 mg/dL (0.55-1.3); POTASSIUM 4.8 mmol/L (3.5-5.1)
[2019-07-15] MEDS ORDERED: PT OWN MED DRAWER 7, Y5N ONE (09:11)
[2019-07-15] MEDS: oxyCODONE HCL 20 MG SUSTAINED ACTING TABLET PO SCH (09:14)
[2019-07-15] MEDS: POLYETHYLENE GLYCOL 3350 119 GM BTL PO SCH (09:14)
[2019-07-15] MEDS: DOCUSATE SODIUM 100 MG CAPSULE (FP) PO SCH (09:14)
[2019-07-15] MEDS: ALLOPURINOL 100 MG TABLET (FP) PO SCH (09:15)
[2019-07-15] MEDS: GABAPENTIN 100 MG CAPSULE (FP) PO SCH (09:15)
[2019-07-15] MEDS: EMTRICITAB/RILPIVIRI/TENOF ALA (ODEFSEY) TABLET PO SCH (09:15)
--- NOTE | 2019-07-15 10:27 | DS ---
Physical Exam: UPDATE: Pt returned to floor after leaving building 10-15 minutes later with hopes of returning to room. Due to pt being discharged from system and bed being turned over pt was brought to ER. It was discussed with patient that he will need inpatient care and likely will need lymphoma induction treatment after mediastinal mass biopsy. Transfer was facilitated to [facility]: [place] with Dr. Chatman due to lack of resources for mediastinal mass biopsy and supportive care for likely lymphoma remission treatment induction. SUBJECTIVE: Pt eloped prior to being seen for AMA papers. No IV. OBJECTIVE: Vital Signs Period Temp Pulse Resp BP Sys/Abel Pulse Ox Last 24 Hr 97.4 F-98.4 F 89-95 20-20 119-138/71-85 97-97 PHYSICAL EXAM Was not able to examine patient today; eloped before seeing LABS Laboratory Results - last 24 hr 07/15/19 07/15/19 06:30 06:30 PTT (Actin FS) 47.2 H Sodium 135 L Potassium 4.8 Chloride 100 Carbon Dioxide 30 Anion Gap 5 L BUN 16.0 Creatinine 1.3 Est GFR (CKD-EPI)AfAm 71.19 Est GFR (CKD-EPI)NonAf 61.43 Random Glucose 118 H Calcium 9.0 aPTT 07/06/19 07/09/19 07/11/19 00:32 07:00 07:30 PTT (Actin FS) 42.6 H 41.7 H 40.8 H 07/13/19 07/15/19 06:25 06:30 PTT (Actin FS) 43.6 H 47.2 H Pleural Fluid Studies 07/09/19 07/09/19 14:43 14:43 Fluid Source Pleural POC Fluid pH 7.2 Fluid WBC 18156 Fluid RBC 50361 Fluid Neutrophils 5 Fluid Lymphocytes 90 Fluid Glucose 6 Fluid Total Protein 4.9 Fluid Albumin 3.1 Body Fluid LDH Source 1182 Fluid Amylase 28 Fluid Cholesterol 84 Fluid Triglycerides 20 Pleural Monocytes 5 Serologies/Immunology 07/08/19 07/10/19 07/11/19 09:02 07:28 12:15 LD Total Rqwc-5-Pznapeomtqwc Ab >150 H Beta-2-GPI IgM Ab <9 Anti-Cardiolipin IgG Ab <9 Anti-Cardiolipin IgA Ab <9 Anti-Cardiolipin IgM Ab <9 EBV Nuclear Antigen 388.0 H TB Test (QFT) Nil 1.03 TB Test (QFT) Mitogen >10.00 TB Test (QFT) Antigen 4.15 TB Test (QFT) Positive H TB Positive Criteria 07/13/19 06:25 LD Total 489 H Mrdi-3-Czowaczpvotg Ab Beta-2-GPI IgM Ab Anti-Cardiolipin IgG Ab Anti-Cardiolipin IgA Ab Anti-Cardiolipin IgM Ab EBV Nuclear Antigen TB Test (QFT) Nil TB Test (QFT) Mitogen TB Test (QFT) Antigen TB Test (QFT) TB Positive Criteria Current Medications Generic Name Dose Route Start Last Admin Trade Name Freq PRN Reason Stop Dose Admin Acetaminophen 325 mg 07/09/19 22:13 07/14/19 08:07 Tylenol - PO 325 mg Q4H PRN Administration PAIN Allopurinol 200 mg 07/13/19 10:00 07/14/19 10:38 Zyloprim - PO 200 mg BID ENOC Administration Atorvastatin Calcium 10 mg 07/08/19 22:00 07/13/19 22:13 Lipitor - PO 10 mg HS ENOC Administration Docusate Sodium 100 mg 07/08/19 12:30 07/14/19 10:39 Colace - PO 100 mg BID ENOC Administration Gabapentin 100 mg 07/13/19 10:00 07/14/19 10:38 Neurontin - PO 100 mg DAILY ENOC Administration Lactated Ringer's 1,000 ml in 1,000 mls @ 75 mls/hr 07/13/19 09:45 07/14/19 15:41 Lactated Ringers Solution IV Not Given ASDIR ENOC Magnesium Hydroxide 30 ml 07/12/19 07:35 07/14/19 15:44 Milk Of Magnesia - PO 30 ml Q8H PRN Administration INDIGESTION Oxycodone HCl 15 mg 07/12/19 21:42 07/14/19 08:07 Roxicodone - PO 15 mg Q4H PRN Administration PAIN LEVEL 7 - 10 Oxycodone HCl 20 mg 07/13/19 22:00 07/14/19 10:38 Oxycontin - PO 20 mg BID ENOC Administration Polyethylene Glycol 17 gm 07/11/19 15:45 07/14/19 10:45 Miralax (For Daily Use) - PO 17 gm DAILY ENOC Administration Quetiapine Fumarate 100 mg 07/06/19 22:00 07/13/19 22:13 Seroquel - PO 100 mg HS ENOC Administration Senna 2 tab 07/08/19 22:00 07/13/19 22:13 Senna - PO 2 tab HS ENOC Administration Venlafaxine HCl 75 mg 07/09/19 12:00 07/14/19 13:30 Effexor Xr - PO 75 mg DAILY@1200 ENOC Administration CYTOLOGY: Final Diagnosis PLEURAL FLUID FOR CYTOLOGY: SATISFACTORY FOR EVALUATION. LYMPHOID-RICH EFFUSION. SEE COMMENT. Comment: Predominantly small lymphocytes with subset showing mild nuclear irregularities, cannot exclude a lymphoproliferative disorder in this material. Rare mesothelial cells noted. Suggest clinical/radiological correlation. See concurrent materials ([id number] and [id number]). IMAGING: Thoracic and Lumbar Spine CT: Impression: No definite CT evidence of osseous neoplastic disease is identified involving the thoracolumbar spine Several very small sclerotic foci are noted within the thoracolumbar spine probably representing incidental bone islands. Correlation with serum PSA level is suggested and possibly 2 to 3 month follow-up CT to document stability and lack of developing pathology. Moderate to marked bilateral L5-S1 degenerative facet arthropathy is seen. ADDENDUM #1 Addendum: Mild to moderate chronic nonpathologic multilevel thoracic vertebral body compression fractures are noted. Axilla/Soft Tissue U/S: IMPRESSION: Bilateral axillary lymph nodes, as described above that appear morphologically unremarkable. Largest lymph node in the right axilla measures 2.2 x 0.9 cm and largest lymph node in the left axilla measures 2.2 x 0.7 cm. Correlate clinically for further evaluation Abd/Pelvis and Chest CT noncontrast: IMPRESSION: 1. Confluent anterior mediastinal masses suspicious for lymphadenopathy. The possibility of lymphoma should be considered. 2. Additional enlarged lymph nodes within the left cardiophrenic angle, axillary and retrocrural chains. 3. Large left pleural effusion and lower lobe atelectasis. 4. Hepatic hypodensity too small to accurately characterize. 5. Marked fecal retention. 6. No definite evidence of lymphadenopathy or metastatic disease with within the abdomen or pelvis. Please see above discussion. CXR post-thoracentesis: Inspiration and expiration imaging has been obtained following left thoracentesis. There appears to be adenopathy in the right paratracheal area as well as the AP window and left hilum. There is some atelectasis or scarring at the left base. Pneumothorax is not seen. Pleural fluid has diminished since 07/08/2019. Correlation recommended. Follow up needed HOSPITAL COURSE: Date of Admission:07/06/19 Date of Discharge: 07/15/19 Pt was admitted on 07/06/19 with pain-like symptoms and shortness of breath found to effusion, mediastinal mass, and lymphadenopathy throughout his body as indentified on imaging. Pt was undergoing workup for suspected lymphoma and initially had therapeutic and diagnostic thoracentesis with IR yielding 1L of fluid siphoned from LLL. Pleural studies yielded exudative effusion with cytology as above. Due to technical difficulties with CAT scan, pt underwent core biopsy of his L axillary lymphadenopathy 2 days later. At this point mediastinal sampling of his mass was not performed due to high risk of bleed 2/ 2 to elevated aPTT. Unfortunately, pt's L axillary LN core biopsies did not have high yield results. During pt's workup here, his care was being overseen by hematology/oncology and infectious disease. Results of his workup identified EBV positive also leading to suspicion for lymphoma. Unfortunately pt eloped before today's evaluation and did not have IV left in his arm. Minutes to complete discharge: 35 Discharge Summary Problems reviewed: Yes Reason For Visit: HIV INFECTION, MEDIASTINAL MASS, CHEST PAIN Condition: Fair - Instructions Disposition: ELOPED - Home Medications Comprehensive Discharge Medication List: Ambulatory Orders Multivitamin,Ther and Minerals [Vitamin and Minerals] 1 each PO DAILY 02/25/19 Pravastatin Sodium [Pravachol -] 20 mg PO HS 02/25/19 Emtricitab/Rilpiviri/Tenof Ala [Odefsey Tablet] 1 each PO DAILY #30 tablet 04/11 Quetiapine Fumarate [Seroquel -] 100 mg PO HS #30 tablet 06/19/19 Polyethylene Glycol 3350 [Miralax (For Daily Use) -] 17 gm PO DAILY PRN #1 bottle 06/26/19 Venlafaxine HCl ER [Effexor Xr -] 75 mg PO DAILY #30 cap.er.24h 06/26/19 This patient is new to me today: No Emergency Visit: Yes ED Registration Date: 07/06/19 Care time: The patient presented to the Emergency Department on the above date and was hospitalized for further evaluation of their emergent condition. Critical Care patient: No - Discharge Referral Referred to [facility] Med P.C.: No ATTENDING PHYSICIAN STATEMENT I saw and evaluated the patient. I reviewed the resident's note and discussed the case with the resident. I agree with the resident's findings and plan as documented. SUBJECTIVE: OBJECTIVE: ASSESSMENT AND PLAN:
--- NOTE | 2019-07-15 10:57 | PN ---
Teaching Attending Note Name of Resident: Shon Casas ATTENDING PHYSICIAN STATEMENT I saw and evaluated the patient. I reviewed the resident's note and discussed the case with the resident. I agree with the resident's findings and plan as documented. SUBJECTIVE: Patient eloped prior to being seen.
--- NOTE | 2019-07-15 11:03 | PN ---
Progress Note (short form) - Note Progress Note: Unable to contact patient with the phone nos. on record
--- NOTE | 2019-07-16 14:43 | PATH ---
Surgical Pathology Report Patient Name: RICARDO LUNA Med. Rec. #: [id number] /Age/Gender: 1965 (Age: 54) / M Account: [id number] Location: [facility] MED/SURG Taken: 07/11/2019 Received: 07/11/2019 Reported: 07/16/2019 Physicians: Darcie Young M.D. Specimen(s) Received PERIPHERAL BLOOD Clinical History Lymphadenopathy, r/o lymphoma Final Diagnosis FLOW CYTOMETRY ANALYSIS performed and reported by [facility], [place], [place] ([id number]) shows the following: PERIPHERAL BLOOD INTERPRETATION: No immunophenotypic evidence for abnormal myeloid maturation, an increase in blasts, or a lymphoproliferative disorder. COMMENT: There is no increase in CD34 and/or CD117 positive blasts, and they comprise <0.1% of total cells. No abnormal myeloid maturation is seen. Mature monocytes with a normal immunophenotype (CD14 and CD64 positive) are 4% of total cells. The B-cells (4% of total cells) are polytypic and the T-cells (29% of total cells) do not show blankenship T-cell antigen deletion. CD4:CD8=0.9:1. CD56+ and/or CD57+ T/NK-large granular lymphocytes are within normal limits (7% of total cells). A significant population of CD38 bright plasma cells is not identified. See [facility] report ([id number]) for additional details. Electronically Signed Abimbola Valencia M.D.
--- NOTE | 2019-07-18 16:33 | PATH ---
Surgical Pathology Report Patient Name: RICARDO LUNA [facility]. Rec. #: [id number] /Age/Gender: 1965 (Age: 54) / M Account: [id number] Location: [facility] MED/SURG Taken: 07/11/2019 Received: 07/11/2019 Reported: 07/18/2019 Physicians: Maribeth Almeida M.D. Smitha Mellacheruvu, M.D. Specimen(s) Received LYMPH NODE Clinical History 54-year-old male with HIV and extensive anterior mediastinal adenopathy and axillary (swollen) lymph node Final Diagnosis LYMPH NODE, AXILLARY, LEFT, ULTRASOUND GUIDED CORE BIOPSY: MINUTE FRAGMENTS OF LYMPHOID TISSUE, WITH A MIXED SMALL B-CELL AND SMALL T-CELL POPULATION AND POLYTYPIC PLASMA CELLS; NOT DIAGNOSTIC OF AN INVOLVEMENT BY LYMPHOMA. SEE COMMENT. Comment: H&E stained section shows minute fragments of lymphoid tissue with small mature lymphocytes with round nuclear contours and mature plasma cells. Deni-Nader cells are not identified. Immunoperoxidase studies show a mixture of small B-cels and small T-cells. B-cells do not express CD5, CD10, CD43, BCL1, BCL6. MUM1(+) plasma cells are polytypic. CD30 immunostain highlights rare activated lymphoid cells. An in-situ hybridization for EBV (VIVEK) is negative. Ki-67 immunostain shows a proliferation index of ~5-10%. Findings are not diagnostic of an involvement by lymphoma. An excisional biopsy is recommended. Flow cytometry does not show evidence for a clonal B-cell population. Correlation with relevant clinical and laboratory findings is recommended. This [facility] [place] [facility][id number] the diagnosis above reflects her opinion. FLOW CYTOMETRY ANALYSIS performed and reported by [facility], [place], [place] ([id number]) shows the following: No immunophenotypic evidence of a clonal B cell population. COMMENT: Because of low viability and low cell yield, only a limited antibody panel was performed. Clinical and morphologic correlation will be necessary for a complete interpretation. PHENOTYPE: The CD19 and CD20 positive B-cells are 26% of total cells and are polyclonal. The CD3 positive T-cells are 70% of total cells. CD13/33+ granulocytes/monocytes/histiocytes are 2% of total cells. See [facility] reports ([id number]) for additional details. Electronically Signed Abimbola Valencia M.D. Gross Description Received in formalin labeled "lymph node biopsy" is a 0.3 x 0.3 x 0.1 cm aggregate of gonzales soft tissue fragments. The formalin is filtered and the specimen is entirely submitted in one cassette. There is additional tissue received in RPMI solution which is sent for flow cytometry. DL07/11/2019 saudi07/11/2019
== END 2019-07-15 10:08 | disposition left against medical advice (07) | DRG 681 ==
LOC: JER 23:21 → JERBED 07-06 01:56 → J8W 07-06 07:52
PROVIDERS: ADMIT Internal Medicine; ATTEND Internal Medicine
PROC: 0W9B3ZX Drainage of Left Pleural Cavity, Percutaneous Approach, Diagnostic (ICD-10-PCS; principal; 2019-07-09)
PROC: 07D63ZX Extraction of Left Axillary Lymphatic, Percutaneous Approach, Diagnostic (ICD-10-PCS; 2019-07-11)
DX: C85.90 Non-Hodgkin lymphoma, unspecified, unspecified site (principal); F10.239 Alcohol dependence with withdrawal, unspecified; Z21 Asymptomatic human immunodeficiency virus [HIV] infection status; J98.11 Atelectasis; R59.0 Localized enlarged lymph nodes; F14.90 Cocaine use, unspecified, uncomplicated; J98.59 Other diseases of mediastinum, not elsewhere classified; E66.01 Morbid (severe) obesity due to excess calories; B19.10 Unspecified viral hepatitis B without hepatic coma; J90 Pleural effusion, not elsewhere classified; F39 Unspecified mood [affective] disorder; E78.5 Hyperlipidemia, unspecified; F17.210 Nicotine dependence, cigarettes, uncomplicated
CPT/HCPCS: 36415; 71045-TC-FY; 71046-TC-FY; 71250-TC; 71260-TC; 72128-TC; 72131-TC; 74177-TC; 76882-TC-RT-FY; 76942; 76942-TC; 78306-TC; 80048; 80053; 81003; 82042; 82150; 82465; 82550; 82553; 82945; 83615; 83690; 83735; 83986; 84100; 84157; 84478; 84484; 84550; 85025; 85027; 85384; 85610; 85613; 85730; 85732; 86146; 86480; 86664; 86850; 86900; 86901; 87070; 87075; 87086; 87102; 87116; 87205; 87206; 87210; 87899; 88300-TC; 93005; 93010; 99282-25; A9503; J0131; Q9967

== ENCOUNTER 2019-07-15 11:40 | Emergency (ER) | payer OTHER ==
--- NOTE | 2019-07-15 11:44 | PDOC ---
History of Present Illness - General Chief Complaint: Weakness Stated Complaint: Weakness Time Seen by Provider: 07/15/19 11:42 Past History - Past Medical History Allergies/Adverse Reactions: Allergies Allergy/AdvReac Type Severity Reaction Status Date / Time No Known Allergies Allergy Verified 02/25/19 10:47 Home Medications: Ambulatory Orders Multivitamin,Ther and Minerals [Vitamin and Minerals] 1 each PO DAILY 02/25/19 Pravastatin Sodium [Pravachol -] 20 mg PO HS 02/25/19 Emtricitab/Rilpiviri/Tenof Ala [Odefsey Tablet] 1 each PO DAILY #30 tablet 04/11 Quetiapine Fumarate [Seroquel -] 100 mg PO HS #30 tablet 06/19/19 Polyethylene Glycol 3350 [Miralax (For Daily Use) -] 17 gm PO DAILY PRN #1 bottle 06/26/19 Venlafaxine HCl ER [Effexor Xr -] 75 mg PO DAILY #30 cap.er.24h 06/26/19 Anemia: No Asthma: No Cancer: No Cardiac Disorders: No CVA: No COPD: No CHF: No Dementia: No Diabetes: No GI Disorders: No Disorders: No HTN: No Hypercholesterolemia: Yes (on med) Kidney Stones: No Liver Disease: Yes (HEP B) Seizures: No Thyroid Disease: No - Surgical History Abdominal Surgery: No Appendectomy: No Cardiac Surgery: No Cholecystectomy: No Lung Surgery: No Neurologic Surgery: No Orthopedic Surgery: Yes (rt index finger amputates while cutting meat) - Reproductive History Testicular Surgery: No - Immunization History Immunization Up to Date: No - Psycho Social/Smoking Cessation Hx Smoking History: Current every day smoker Have you smoked in the past 12 months: Yes Number of Cigarettes Smoked Daily: 12 If you are a former smoker, when did you quit?: 05/21/17 Cigars Per Day: 0 'Breaking Loose' booklet given: 02/25/19 Hx Alcohol Use: No Drug/Substance Use Hx: Yes Substance Use Type: Cocaine Hx Substance Use Treatment: Yes ([facility] 07/04/17 to 07/07/17)
[2019-07-15] MEDS ORDERED: SODIUM CHLORIDE 1,000 ML IV SCH (11:45)
[2019-07-15 11:52] VITALS: BMI 29.9
[2019-07-15] MEDS ORDERED: FENTANYL PATCH WASTE MC PRN (12:05)
[2019-07-15] MEDS ORDERED: oxyCODONE HCL 5 MG TABLET PO ONE (12:13)
[2019-07-15] MEDS ORDERED: fentaNYL 50mcg/hr PATCH.TD72 TD SCH (12:15)
--- NOTE | 2019-07-15 12:32 | PDOC ---
Documentation entered by [place] SCRIBE, acting as scribe for Cherelle Poe DO. Cherelle Poe DO: This documentation has been prepared by the Salty santos Daniel, SCRIBE, under my direction and personally reviewed by me in its entirety. I confirm that the documentation accurately reflects all work, treatment, procedures, and medical decision making performed by me. History of Present Illness - General Chief Complaint: Weakness Stated Complaint: Weakness Time Seen by Provider: 07/15/19 11:42 History Source: Patient Exam Limitations: No Limitations - History of Present Illness Initial Comments: 07/15/19 12:08 The patient is a 54 year old male with a past medical history of HIV (on HAART therapy) and HIV here today for evaluation of chest pain and shortness of breath. The patient was recently admitted and was supposed to be transferred to [facility] for chemotherapy but eloped prior to transfer. Patient returns due to shortness of breath and continued chest and back pain that is 10/10 in severity. Patient states that the lower left side of his chest is numb but if he pinches that area it feels like needles. He also notes being unable to sit or lie down in the same position due to his back pain. Patient reports that he was given morphine and oxycodone while admitted which only provided minimal relief. He also notes a 10 pound weight loss in the past week and a loss of appetite. Patient denies headache, lightheadedness. Denies fever, chills. Denies nausea, vomiting, diarrhea, abdominal pain. Allergies: NKA Social history: Patient confirms tobacco use with his last use 3 weeks ago. Surgical history: hernia repair Past History - Past Medical History Allergies/Adverse Reactions: Allergies Allergy/AdvReac Type Severity Reaction Status Date / Time No Known Allergies Allergy Verified 02/25/19 10:47 Home Medications: Ambulatory Orders Multivitamin,Ther and Minerals [Vitamin and Minerals] 1 each PO DAILY 02/25/19 Pravastatin Sodium [Pravachol -] 20 mg PO HS 02/25/19 Emtricitab/Rilpiviri/Tenof Ala [Odefsey Tablet] 1 each PO DAILY #30 tablet 04/11 Quetiapine Fumarate [Seroquel -] 100 mg PO HS #30 tablet 06/19/19 Polyethylene Glycol 3350 [Miralax (For Daily Use) -] 17 gm PO DAILY PRN #1 bottle 06/26/19 Venlafaxine HCl ER [Effexor Xr -] 75 mg PO DAILY #30 cap.er.24h 06/26/19 Anemia: No Asthma: No Cancer: No Cardiac Disorders: No CVA: No COPD: No CHF: No Dementia: No Diabetes: No GI Disorders: No Disorders: No HTN: No Hypercholesterolemia: Yes (on med) Kidney Stones: No Liver Disease: Yes (HEP B) Seizures: No Thyroid Disease: No - Surgical History Abdominal Surgery: No Appendectomy: No Cardiac Surgery: No Cholecystectomy: No Lung Surgery: No Neurologic Surgery: No Orthopedic Surgery: Yes (rt index finger amputates while cutting meat) - Reproductive History Testicular Surgery: No - Immunization History Immunization Up to Date: No - Psycho Social/Smoking Cessation Hx Smoking History: Current every day smoker Have you smoked in the past 12 months: Yes Number of Cigarettes Smoked Daily: 12 If you are a former smoker, when did you quit?: 05/21/17 Cigars Per Day: 0 Information on smoking cessation initiated: No 'Breaking Loose' booklet given: 02/25/19 Hx Alcohol Use: No Drug/Substance Use Hx: Yes Substance Use Type: Cocaine Hx Substance Use Treatment: Yes ([facility] 07/04/17 to 07/07/17) Review of Systems - Review of Systems Able to Perform ROS?: Yes Comments:: 07/15/19 12:08 GENERAL/CONSTITUTIONAL: No fever or chills. No weakness. HEAD, EYES, EARS, NOSE AND THROAT: No change in vision. No ear pain or discharge. No sore throat. GASTROINTESTINAL: No nausea, vomiting, diarrhea or constipation. GENITOURINARY: No dysuria, frequency, or change in urination. CARDIOVASCULAR: +chest pain. +shortness of breath. RESPIRATORY: No cough, wheezing, or hemoptysis. MUSCULOSKELETAL: +back pain. No joint or muscle swelling or pain. No neck pain. SKIN: No rash NEUROLOGIC: No headache, vertigo, loss of consciousness, or change in strength/ sensation. ENDOCRINE: +weight loss. +decreased appetite. No increased thirst. HEMATOLOGIC/LYMPHATIC: No anemia, easy bleeding, or history of blood clots. ALLERGIC/IMMUNOLOGIC: No hives or skin allergy. *Physical Exam - Vital Signs Last Vital Signs Temp Pulse Resp BP Pulse Ox 97.5 F L 98 H 16 122/78 100 07/15/19 11:44 07/15/19 11:44 07/15/19 11:44 07/15/19 11:44 07/15/19 11:44 - Physical Exam Comments: 07/15/19 12:09 Constitutional: Awake, alert, oriented. No acute distress. Head: Normocephalic. Atraumatic Eyes: PERRL. EOMI. Conjunctivae are not pale. ENT: Mucous membranes are moist and intact. Posterior pharynx without exudates or erythema. Uvula midline. Neck: Supple. Full ROM. No lymphadenopathy. Cardiovascular: Regular rate. Regular rhythm. S1, S2 regular. Distal pulses are 2+ and symmetric. Pulmonary/Chest: +diminished lungs sounds on the left. No wheezing, rales or rhonchi. Abdominal: Soft and non-distended. There is no tenderness. No rebound, guarding or rigidity. No organomegaly. No palpable masses. Good bowel sounds. Back: +t-spine tenderness. No CVA tenderness. Musculoskeletal: No edema. No cyanosis. No clubbing. Full range of motion in all extremities. Nocalf tenderness. Radial/pedal pulses are intact and 2+ bilaterally Skin: Skin is warm and dry. No petechiae. No purpura. Neurological: Alert and oriented to person, place, and time. Cranial nerves II -XII are grossly intact. Normal speech. Strength is grossly symmetric. No sensory deficits. Psychiatric: Good eye contact. Normal interaction, affect and behavior. Heart Score/ECG Review - ECG Intrepretation Comment:: 07/15/19 12:23 sinus at 92, q waves anteriorly which are age indeterminate, nl axis, no acute st/t wave findings ED Treatment Course - LABORATORY CBC & Chemistry Diagram: 07/15/19 12:12 07/15/19 12:12 - RADIOLOGY Radiology Studies Ordered: Category Date Time Status CHEST CT WITHOUT CONTRAST [CT] Stat CT Scan 07/15/19 11:46 Ordered Medical Decision Making - Medical Decision Making 07/15/19 12:23 a/p: 54yo male with generalized weakness and sob -pt eloped earlier after being in the hospital for workup of abnl lymph nodes and lymphoma -pt was too sob and weak to walk out of the hospital and changed his mind and decided he wanted treatment -pt has been in the midst of transfer to [facility] to Dr. Chatman for induction of chemo and further eval of the mediastinal mass -case discussed with Dr. Sprague who was the onc caring for the patient on the floor who requests cbc, cmp, ldh, uric acid, coags, ct chest without -requests nss 75cc/hr, allopurinol, pain control -pt with decreased bs L base concerning for recurrent pleural effusion, pt with paresthesias in the L T11 dermatome - hx of compression fx in his back -will give pain control -will discuss further with Dr. Castellanos and Lurdes pending transfer to [facility] 07/15/19 12:[address] Sprague who states pt has been accepted in transfer to [facility] [address] Chatman. call placed to the transfer center to confirm acceptance pt currently in [place] 07/15/19 12:55 pt has been updated on transfer and is pending machine pecan picker by medics pt has signed transfer paperwork 07/15/19 13:54 large L pleural effusion and anterior mediastinal mass on ct elevated ldh wbc and h/h stable pt pending transfer 07/15/19 14:30 t spine fx that are not pathologic without retropulsion 07/15/19 16:02 nurse giving report for transfer Discharge - Discharge Information Problems reviewed: Yes Clinical Impression/Diagnosis: Lymphoma, Back pain, HIV (human immunodeficiency virus infection), Thoracic spine fracture Condition: Fair Disposition: TRANSFER ACUTE CARE/OTHER HOSP - Follow up/Referral - Patient Discharge Instructions - Post Discharge Activity - Transfer to Acute Care Facility Receiving Facility Name: [address] Accepting Physician:: Dr. Chatman
[2019-07-15 12:36] LABS: BASO % 0.8 % (0-2.0); EOS % 4.7 % (0-4.5); HEMATOCRIT 42.8 % (35.4-49); HEMOGLOBIN 14.7 GM/dL (11.7-16.9); LYMPH % 30.3 % (8-40); MCH 30.8 pg (25.7-33.7); MCHC 34.3 g/dl (32.0-35.9); MEAN CELL VOLUME 89.8 fl (80-96); MONO % 9.6 % (3.8-10.2); NEUT % 54.6 % (42.8-82.8); PLATELET COUNT 324 K/MM3 (134-434); RBC 4.77 M/mm3 (4.00-5.60); RDW 13.1 % (11.9-15.9); WHITE BLOOD COUNT 6.2 K/mm3 (4.0-10.0)
[2019-07-15 12:48] LABS: VENOUS PH 7.37 (7.31-7.41)
[2019-07-15] MEDS ORDERED: oxyCODONE HCL 5 MG TABLET ONE (12:57)
[2019-07-15 13:03] LABS: INR 1.03 (0.83-1.09); PROTHROMBIN TIME (PATIENT) 12.1 SEC (9.7-13.0)
[2019-07-15 13:04] LABS: VENOUS PO2 < 49 mmHg (28-48)
[2019-07-15 13:06] LABS: ACTIVATED PTT 46.3 SECONDS (25.2-36.5); ALBUMIN 3.7 g/dl (3.4-5.0); BILIRUBIN,TOTAL 0.6 mg/dL (0.2-1); BLOOD UREA NITROGEN 15.1 mg/dL (7-18); CALCIUM 9.2 mg/dL (8.5-10.1); CREATININE 1.3 mg/dL (0.55-1.3); POTASSIUM 4.4 mmol/L (3.5-5.1); TOT PROT 8.3 g/dl (6.4-8.2)
[2019-07-15 13:08] LABS: MAGNESIUM 2.2 mg/dL (1.8-2.4); URIC ACID 5.1 mg/dL (2.6-7.2)
[2019-07-15 16:10] VITALS: BP 134/66; PULSE 104; TEMP 98
--- NOTE | 2019-07-16 09:15 | EKG ---
Test Reason : Blood Pressure : / mmHG Vent. Rate : 092 BPM Atrial Rate : 092 BPM P-R Int : 164 ms QRS Dur : 100 ms QT Int : 354 ms P-R-T Axes : 043 053 064 degrees QTc Int : 437 ms NORMAL SINUS RHYTHM ANTERIOR INFARCT (CITED ON OR BEFORE 06-JUL-2019) ABNORMAL ECG WHEN COMPARED WITH ECG OF 06-JUL-2019 01:05, QUESTIONABLE CHANGE IN INITIAL FORCES OF ANTERIOR LEADS Confirmed by MD Crissy, Arsen ([id number]) on 07/16/2019 9:14:58 AM Referred By: Confirmed By:Arsen Woodward MD
== END 2019-07-15 16:54 | disposition short-term general hospital (02) ==
LOC: JER 11:40
PROC: 3E033NZ Introduction of Analgesics, Hypnotics, Sedatives into Peripheral Vein, Percutaneous Approach (ICD-10-PCS; principal; 2019-07-15)
DX: C85.90 Non-Hodgkin lymphoma, unspecified, unspecified site (principal); J90 Pleural effusion, not elsewhere classified; S22.009A Unspecified fracture of unspecified thoracic vertebra, initial encounter for closed fracture; X58.XXXA Exposure to other specified factors, initial encounter; Y93.89 Activity, other specified; Y92.89 Other specified places as the place of occurrence of the external cause; Y99.8 Other external cause status; Z21 Asymptomatic human immunodeficiency virus [HIV] infection status; E78.00 Pure hypercholesterolemia, unspecified; B19.10 Unspecified viral hepatitis B without hepatic coma; Z89.021 Acquired absence of right finger(s); Z72.0 Tobacco use
CPT/HCPCS: 36415; 71250-TC; 80053; 82550; 82553; 82803; 83615; 83735; 83880; 84484; 84550; 85025; 85610; 85730; 86850; 86900; 86901; 93005; 93010; 96374; 99285-25; J7030